=== PATIENT | male | born 1955 | race Caucasian/White ===

== ENCOUNTER 2018-09-07 13:26 | Inpatient (IN) | payer MEDICAID, OTHER ==
[~2018-09-07] VITALS: Ht 177.8 cm; Wt 137.0 kg
[2018-09-07] MEDS: LISINOPRIL 10 MG TAB PO SCH ×2 (09:00→20:10)
[2018-09-07] MEDS ORDERED: NS 1,000 ML IV ONE ×2 (14:30→21:30)
[2018-09-07 14:42] LABS: BASO % 0.2 % (0.0-1.0); EOS % 0.1 % (0.0-3.0); HEMOGLOBIN 14.7 g/dl (13.5-17.5); LYMPH # 0.9 10^3/uL (1.5-4.5); LYMPH % 4.9 % (24.0-44.0); MEAN CORPUSCULAR HEMOGLOBIN 31.3 pg (27.0-33.0); MEAN CORPUSCULAR HGB CONC 34.2 g/dl (32.0-36.5); MEAN CORPUSCULAR VOLUME 91.7 fl (80.0-96.0); MONO # 0.9 10^3/uL (0.0-0.8); MONO % 4.6 % (0.0-5.0); NEUTROPHILS # 16.8 10^3/uL (1.8-7.7); NEUTROPHILS % 89.7 % (36.0-66.0); PLATELET COUNT, AUTOMATED 311 10^3/uL (150-450); RED BLOOD COUNT 4.69 10^6/uL (4.30-6.10); WHITE BLOOD COUNT 18.7 10^3/uL (4.0-10.0)
[2018-09-07 14:52] LABS: INR 1.22; PARTIAL THROMBOPLASTIN TIME 30.5 SECONDS (25.4-37.6); PROTHROMBIN TIME 15.6 SECONDS (12.1-14.4)
[2018-09-07 15:03] LABS: BLOOD UREA NITROGEN 13 MG/DL (7-18); CALCIUM LEVEL 8.1 MG/DL (8.8-10.2); CARBON DIOXIDE LEVEL 27 MEQ/L (21-32); CHLORIDE LEVEL 96 MEQ/L (98-107); CREATININE FOR GFR 0.99 MG/DL (0.70-1.30); GLOMERULAR FILTRATION RATE > 60.0 (>49); GLUCOSE, FASTING 335 MG/DL (70-100); SODIUM LEVEL 132 MEQ/L (136-145)
[2018-09-07 15:09] LABS: ERYTHROCYTE SEDIMENTATION RATE 78 mm/hr (0-20)
[2018-09-07] MEDS ORDERED: VANCOMYCIN HCL 1,000 MG, VIAL MATE ADAPTER 1 EACH in D5W 250 ML IV ONE (15:30)
[2018-09-07] MEDS ORDERED: PIPERACILLIN/TAZOBACTAM SOD 3.375 GM in D5W MINI-BAG PLUS 50 ML IV ONE (15:30)
[2018-09-07] MEDS ORDERED: PIPERACILLIN/TAZOBACTAM SOD 3.375 GM in D5W MINI-BAG PLUS 50 ML IV SCH (18:00)
[2018-09-07] MEDS ORDERED: GLUCOSE 4 GM CHEW TABLET PO PRN (18:00)
[2018-09-07] MEDS ORDERED: GLUCAGON FOR INJ 1 MG VIAL (J1610) SC PRN (18:00)
[2018-09-07] MEDS ORDERED: DEXTROSE 50% 50 ML SYRINGE IV PRN (18:00)
[2018-09-07] MEDS ORDERED: hydrALAZINE INJ 20 MG/ML VIAL IV STA (18:05)
--- NOTE | 2018-09-07 18:49 | HPE ---
DATE OF ADMISSION: 09/07/2018 CHIEF COMPLAINT: Right foot wound. HISTORY OF PRESENT ILLNESS: This is a 63-year-old gentleman with no known medical history, who has not had primary care for the last 40 years, who presents with chief complaint of right foot wound that has been worsening for the last several days. Patient reports that on Saturday, after he took off his sock, he noticed red blood spots on his sock. He then noticed a wound on his right lateral foot. There was associated erythema that has proven stable since Saturday. He went to Urgent Care initially and was told to come here to the emergency room. He denies every being diagnosed with diabetes. He does report that he has had polyuria for the last year, but otherwise denies any other symptoms. He denies any insect bite or trauma to his right foot. No known fevers. REVIEW OF SYSTEMS: Negative for 14 out of 14 systems except as noted above. EMERGENCY ROOM (ER) COURSE: Patient in the emergency room was given a dose of vancomycin and Zosyn for concerns of right diabetic foot ulcer. He had an x-ray done in the ER that did not show evidence of osteomyelitis. He was also given a 1 liter fluid bolus. He is being admitted for diabetic foot ulcer evaluation. PAST MEDICAL HISTORY: None known. PAST SURGICAL HISTORY: None. HOME MEDICATIONS: None. ALLERGIES: No known drug allergies. SOCIAL HISTORY: Patient occasionally has a beer. No history of smoking. 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 No history of recreational drug use. He is currently single and never been . Has no children. FAMILY HISTORY: He does have an uncle and several cousins who had diabetes. PHYSICAL EXAMINATION: On exam, initially when he came in, he was afebrile to 98.4, blood pressure 197/84, pulse of 109, respirations at 16, saturating 95% on room air. GENERAL: He is in no acute distress. He is an overweight, elderly gentleman. HEENT EXAM: Oropharynx clear. CARDIOVASCULAR: Slightly tachycardic. No murmurs, rubs, gallops. LUNGS: Clear to auscultation bilaterally. ABDOMEN: Obese, nontender, nondistended. EXTREMITIES: No clubbing, cyanosis or edema. SKIN: Patient's right foot has an approximately 3 inch diameter ulcer on the lateral border. There is surrounding erythema extending throughout the dorsum of the foot. Area was demarcated with a pen. NEUROLOGICAL: Patient is alert and oriented times three. Follows simple commands. No focal neurologic deficits. PSYCHOLOGICAL: Mood stable. LABORATORY DATA: Reveal creatinine of 0.9, sodium of 132, potassium of 4, glucose 335. A1c 11. CRP is 13. Erythrocyte sedimentation rate is 78. Foot x-ray shows no radiographic evidence of osteomyelitis. ASSESSMENT AND PLAN: This is a 63-year-old gentleman with no known past medical history with poor primary care followup who presents with chief complaint of several day history of right lateral foot wound, found to have a new diagnosis of diabetes. PROBLEMS: 1. Sepsis. Patient does meet systemic inflammatory response syndrome (SIRS) criteria on admission with a white count 18 and tachycardia up to 109. He did already receive fluids in the ER and vancomycin and Zosyn. The source of the sepsis is likely the right foot infection. Blood cultures are pending. 2. Right diabetic foot wound. At this time, I will continue broad spectrum antibiotics with vancomycin and Zosyn for broad spectrum coverage, especially given the patient is presenting with sepsis. I have called Dr. Suarez, who will see the patient tomorrow. A consult has been placed. The patient's erythrocyte sedimentation rate and CRP were elevated, but the x-ray did not show any evidence of osteomyelitis, but I have ordered an MRI to further evaluate this. I have also placed a wound care consult. 3. New diagnosis of diabetes. Patient comes in with an A1c of 11 and glucose up to 335. An A1c is unlikely that we can control his diabetes with just oral agents and diet modification. Therefore, I have initiated him on the initial dosing of Levemir 0.2 units/kilo, up to 10 units daily. Therefore, I have started him on 10 units at bedtime. Patient should have diabetic and insulin teaching during this hospitalization. I have placed a nursing order for this. He will need regular primary care followup as well as diabetic retinopathy screens, which I advised the patient. He will need diabetic diet teaching and I have placed a dietary consult to review this with the patient. 4. Hypertension. Patient also has untreated hypertension with blood pressures up to 190s/80s. Given he also has this new diagnosis of diabetes, I think he would benefit from an angiotensin-converting enzyme (SHERRY) inhibitor. I have given him a one-time dose of hydralazine just to help improve his pressors more acutely, but I have also started him on lisinopril 10 mg daily, and he should have an electrolyte check with a potassium in about one week, given the new initiation of an SHERRY inhibitor. 5. Health care maintenance. I have also just went ahead and checked a lipid profile to see if patient would benefit from a statin prior to discharge. 6. Deep venous thrombosis (DVT) prophylaxis. I have started the patient on Lovenox.
[2018-09-07] MEDS: HumaLOG INSULIN (NovoLOG) PER UNIT SC SCH (20:32)
[2018-09-07] MEDS: ACETAMINOPHEN TAB 650MG DOSE (2X325MG) PO PRN (20:56)
[2018-09-07] MEDS ORDERED: VANCOMYCIN HCL 1,000 MG, VIAL MATE ADAPTER 1 EACH in D5W 250 ML IV SCH (21:00)
[2018-09-07] MEDS ORDERED: LEVEMIR (INSULIN DETEMIR) 1 UNITS/0.01ML SC SCH (21:00)
[2018-09-07] MEDS: LABETALOL HCL 100 MG/20 ML VIAL IV SCH (21:35)
[2018-09-07] MEDS ORDERED: PIPERACILLIN/TAZOBACTAM SOD 4.5 GM in D5W MINI-BAG PLUS 50 ML IV SCH (22:00)
[2018-09-07 22:30] VITALS: BP 165/79
[2018-09-07] MEDS: PIPERACILLIN/TAZOBACTAM SOD 4.5 GM in D5W MINI-BAG PLUS 50 ML IV SCH (23:00)
[2018-09-07] MEDS: VANCOMYCIN HCL 1,000 MG, VIAL MATE ADAPTER 1 EACH in D5W 250 ML IV SCH (23:50)
--- NOTE | 2018-09-08 01:37 | PHACANCOPD ---
PHARMACY VANCOMYCIN DOSING Pt Demographics Demographics Patient Age:63 , Weight:137.100 , Gender: male Adjusted Body Weight Date: 09/08/18, Adjusted Body Weight: [98.6] Kg Vancomycin Vancomycin indication: DIABETIC FOOT INFECTION Vancomycin Target Ranges: 10-20 mcg/ml Vancomycin Load Y/N: Yes Load Dose Date Time Vancomycin Load Dose: 2GM Date: 09/07 Time: 2099 Vancomycin Dose Date: 09/08/18. Current Vancomycin Dose: [1 GM Q8H] Intermittent Dosing?: No Labs Labs Laboratory Tests 09/07/18 14:32 Red Blood Count 4.69, Mean Corpuscular Volume 91.7, Mean Corpuscular Hemoglobin 31.3, Mean Corpuscular Hemoglobin Concent 34.2, Red Cell Distribution Width 11.8, Neutrophils (%) (Auto) 89.7 H, Lymphocytes (%) (Auto) 4.9 L, Monocytes (%) (Auto) 4.6, Eosinophils (%) (Auto) 0.1, Basophils (%) (Auto) 0.2, Neutrophils # (Auto) 16.8 H, Lymphocytes # (Auto) 0.9 L, Monocytes # (Auto) 0.9 H, Eosinophils # (Auto) 0.0, Basophils # (Auto) 0.0, Calcium Level 8.1 L Micro Microbiology 09/07/18 Blood Culture, Received Pending 09/07/18 Blood Culture, Received Pending 09/07/18 Gram Stain - Final, Resulted 09/07/18 Wound Culture, Resulted Pending Creatinine Clearance Date:09/08/18. Creatinine Clearance: [109].CALCULATED Pending Labs Vancomycin trough due Assessment and Plan Maintaining Current Dose?: Yes Reason for dose change: No Dose Change Pharmacist Note Pharmacist Note Date: 09/08/18. Pharmacist note:63YOM 137kg(98.6 kg ABW) SCR 0.99,BIMO=929.3,NKDA.Admitted w/Rt.Diabetic foot infection. Receiving Pip/Tazo 4.5 grams IV Q6H and Vancomycin per Pharmacy consult. Vancomycin 1 gram in ED 09/07@17 and 2200 as load, then will continue with regimen of 1 gram IV [id number]. First trough is scheduled for -prior to the 4th dose-will continue to follow patient and will adjust Vancomycin as needed. [facility] Sep 08, 2018 01:37
[2018-09-08 04:00] VITALS: BP 196/80
[2018-09-08] MEDS: PIPERACILLIN/TAZOBACTAM SOD 4.5 GM in D5W MINI-BAG PLUS 50 ML IV SCH ×4 (04:15→23:45)
[2018-09-08] MEDS: LABETALOL HCL 100 MG/20 ML VIAL IV SCH ×4 (04:15→21:59)
[2018-09-08 05:05] VITALS: BP 184/76
[2018-09-08 05:09] LABS: HEMATOCRIT 38.2 % (42.0-52.0); MEAN CORPUSCULAR HEMOGLOBIN 31.1 pg (27.0-33.0); MEAN CORPUSCULAR VOLUME 91.4 fl (80.0-96.0); PLATELET COUNT, AUTOMATED 284 10^3/uL (150-450); RED BLOOD COUNT 4.18 10^6/uL (4.30-6.10); WHITE BLOOD COUNT 16.4 10^3/uL (4.0-10.0)
[2018-09-08 05:27] LABS: BLOOD UREA NITROGEN 9 MG/DL (7-18); CALCIUM LEVEL 7.7 MG/DL (8.8-10.2); CARBON DIOXIDE LEVEL 27 MEQ/L (21-32); CHLORIDE LEVEL 100 MEQ/L (98-107); CHOLESTEROL LEVEL 114 MG/DL (<200); CHOLESTEROL RISK RATIO 3.081 (<5); CREATININE FOR GFR 0.82 MG/DL (0.70-1.30); GLOMERULAR FILTRATION RATE > 60.0 (>49); GLUCOSE, FASTING 252 MG/DL (70-100); HDL CHOLESTEROL 37 MG/DL (>40); LDL CHOLESTEROL 65 MG/DL (<100); NON-HDL-C 77 MG/DL; POTASSIUM SERUM 3.7 MEQ/L (3.5-5.1); SODIUM LEVEL 133 MEQ/L (136-145); TRIGLYCERIDES LEVEL 58 MG/DL (<150)
[2018-09-08] MEDS: VANCOMYCIN HCL 1,000 MG, VIAL MATE ADAPTER 1 EACH in D5W 250 ML IV SCH ×3 (05:40→21:58)
--- NOTE | 2018-09-08 06:37 | REP ---
RIGHT FOOT SERIES: Four views of the right foot are performed. There is a soft tissue ulcer laterally in the midfoot. I see no acute fracture or dislocation. There are no radiographic signs of osteomyelitis with no osseous destruction or periosteal reaction identified. Large calcaneal spurs are seen. Diffuse vascular calcifications are seen. There is dorsal tarsal spurring. IMPRESSION: Lateral soft tissue ulcer in the midfoot with no radiographic evidence of osteomyelitis. No acute fracture or dislocation. Electronically Signed by Jeffery Mcnally MD 09/08/2018 09:16 A
[2018-09-08 08:00] VITALS: BP 150/80
[2018-09-08] MEDS: ENOXAPARIN 40 MG/0.4 ML SYRINGE (J1650) SC SCH (08:30)
[2018-09-08] MEDS: amLODIPine 5 MG TAB PO SCH (08:31)
[2018-09-08] MEDS: HumaLOG INSULIN (NovoLOG) PER UNIT SC SCH ×4 (08:31→20:59)
[2018-09-08] MEDS: LEVEMIR (INSULIN DETEMIR) 1 UNITS/0.01ML SC SCH ×2 (08:38→21:58)
[2018-09-08] MEDS: ACETAMINOPHEN TAB 650MG DOSE (2X325MG) PO PRN ×3 (10:01→20:30)
[2018-09-08 12:00] VITALS: BP 168/78
[2018-09-08] MEDS ORDERED: PROHANCE 279.3MG/ML 5ML VIAL (A9576) As Ordered ONE (14:11)
[2018-09-08] MEDS ORDERED: PROHANCE 279.3MG/ML 15ML VIAL (A9576) As Ordered ONE (14:11)
--- NOTE | 2018-09-08 14:30 | CR ---
DATE OF CONSULTATION: 09/08/2018 REASON FOR CONSULTATION: Right foot wound. Deo Early is a pleasant 63-year-old male who presented to the hospital with worsening foot pain and redness. He was recently diagnosed with diabetes since he has been admitted to the hospital. He has not followed up with a doctor in 40 years. He states that the wound he has noticed for approximately one week and has noted more redness over the last week. PAST MEDICAL HISTORY: Now significant for diabetes. SURGICAL HISTORY: None. HOME MEDICATIONS: None. ALLERGIES: None. SOCIAL HISTORY: He denies smoking. Labs are reviewed. White blood cell count on admission was 18.7, today is 16.4, ESR 78, CRP is 12.8. Hemoglobin A1c is 11. X-ray images show no obvious signs of osteomyelitis. An MRI has been ordered and is pending. PHYSICAL EXAMINATION: Lower extremity examination: There is significant erythema and edema to the right foot with a large ulceration to the lateral foot. There is some eschar with some fluctuance underneath. Pedal pulses are nonpalpable secondary to edema, but capillary refill is normal. ASSESSMENT: Newly diagnosed diabetes with right foot ulceration and cellulitis. PLAN: Due to fluctuance, patient will be brought to the operating room for incision and drainage, possible culture depending on wound findings. Ultimately, the patient will need follow-up with Dr. England. Unfortunately the patient has Medicaid which does not pay for outpatient podiatry services. He is to be nothing by mouth at midnight. Continue with current empiric antibiotics.
--- NOTE | 2018-09-08 15:04 | IPNPDOC ---
Subjective Date Seen The patient was seen on 09/08/18. Subjective Chief Complaint/HPI Patient seen and examined at bedside. States that his right foot feels better this morning. Denies any acute overnight events. Objective Physical Examination General Exam: Positive: Alert, Cooperative, No Acute Distress ENT Exam: Positive: Atraumatic, Mucous membr. moist/pink Neck Exam: Negative: JVD Chest Exam: Positive: Clear to auscultation, Normal air movement Heart Exam: Positive: Rate Normal, Normal S2 Abdomen Exam: Positive: Soft; Negative: Tenderness Extremity Exam: Positive: Other (right forefoot noted to be wrapped in surgical dressing. Surrounding area of erythema appears to be improved from previously demarcated margins.) Psych Exam: Positive: Oriented x 3 Assessment /Plan Plan/VTE VTE Prophylaxis Ordered?: Yes Plan Sepsis 2/2 Right Diabetic Foot Infection Blood cultures unrevealing thus far WBC improved, CRP downward trending, fever has also subsided this morning Cont Darcy Enriquez for now MRI Foot pending Podiatry consulted--patient tentatively scheduled for I&D in the AM, NPO after midnight New diagnosis of diabetes HgbA1c noted to be 11% We are currently up-titrating the patient's Insulin dosing Diabetic teaching ordered We will cont to monitor blood glucose levels Newly diagnosed Hypertension Cont Lisinopril and Norvasc as ordered Labetalol IV prn for parameters Deep venous thrombosis (DVT) prophylaxis Lovenox SC VS, I&O, 24H, Fishbone Vital Signs/I&O Vital Signs Date Time Temp Pulse Resp B/P (MAP) Pulse Ox O2 Delivery O2 Flow Rate FiO2 09/08/18 12:00 97.5 96 20 168/78 (108) 95 09/07/18 22:01 Room Air I&O- Last 24 Hours up to 6 AM 09/08/18 06:00 Intake Total 2090 ml Output Total 1050 ml Balance 1040 ml Laboratory Data 24H LABS Laboratory Tests 2 09/07/18 20:26: Bedside Glucose (Misc Panel) 286H 09/08/18 04:49: Nucleated Red Blood Cells % (auto) 0.0, Anion Gap 6L, Glomerular Filtration Rate > 60.0, Calcium Level 7.7L, C-Reactive Protein, Quantitative 12.80H, Triglycerides Level 58, LDL Cholesterol 65, Total Cholesterol 114, Non-HDL Cholesterol (LDL + VLDL) 77, Total HDL Cholesterol 37L, Cholesterol/HDL Ratio 3.081 09/08/18 11:11: Bedside Glucose (Misc Panel) 206H CBC/BMP Laboratory Tests 09/08/18 04:49 Red Blood Count 4.18 L, Mean Corpuscular Volume 91.4, Mean Corpuscular Hemoglobi n 31.1, Mean Corpuscular Hemoglobin Concent 34.0, Red Cell Distribution Width 11.7 Microbiology Microbiology 09/07/18 Blood Culture - Preliminary, Resulted No growth after 24 hours . All specim... 09/07/18 Blood Culture - Preliminary, Resulted No growth after 24 hours . All specim... 09/07/18 Gram Stain - Final, Resulted 09/07/18 Wound Culture, Resulted Pending JONES GREY MD Sep 08, 2018 15:04
[2018-09-08 16:00] VITALS: BP 152/84
--- NOTE | 2018-09-08 16:42 | REP ---
MRI right foot without contrast: History: Rule out osteomyelitis. Comparison radiographs are from the previous day. Technique: Axial coronal and sagittal imaging planes utilized. T1 and T2-weighted scans were obtained with and without fat saturation. The patient declined intravenous gadolinium. MRI findings: Cortical and medullary bone signal intensity are normal in the metatarsals, tarsals and phalanges on T1 and T2-weighted scans. There is soft tissue irregularity and edema about the lateral aspect of the forefoot near the ulcer. There is no evidence of abnormal soft tissue fluid collection to suggest abscess. There is no MR evidence of osteomyelitis. Impression: Noncontrast study shows the lateral forefoot soft tissue irregularity and edema. No abscess or evidence of osteomyelitis seen. Electronically Signed by Greyson Anaya MD 09/09/2018 11:27 A
[2018-09-08 20:00] VITALS: BP 147/70
[2018-09-09] VITALS (16 sets, daily range): BP systolic 135–205; BP diastolic 64–90; O2SAT 87–93
[2018-09-09] MEDS: LABETALOL HCL 100 MG/20 ML VIAL IV SCH ×4 (04:03→21:32)
[2018-09-09] MEDS: PIPERACILLIN/TAZOBACTAM SOD 4.5 GM in D5W MINI-BAG PLUS 50 ML IV SCH ×4 (04:31→23:44)
[2018-09-09 05:57] LABS: HEMOGLOBIN 12.9 g/dl (13.5-17.5); MEAN CORPUSCULAR HEMOGLOBIN 31.2 pg (27.0-33.0); MEAN CORPUSCULAR HGB CONC 33.1 g/dl (32.0-36.5); MEAN CORPUSCULAR VOLUME 94.2 fl (80.0-96.0); PLATELET COUNT, AUTOMATED 278 10^3/uL (150-450); RED BLOOD COUNT 4.14 10^6/uL (4.30-6.10); WHITE BLOOD COUNT 18.7 10^3/uL (4.0-10.0)
[2018-09-09] MEDS: VANCOMYCIN HCL 1,000 MG, VIAL MATE ADAPTER 1 EACH in D5W 250 ML IV SCH ×3 (06:01→21:36)
[2018-09-09 06:20] LABS: ALBUMIN 2.2 GM/DL (3.2-5.2); ALT/SGPT 37 U/L (12-78); BILIRUBIN,TOTAL 0.8 MG/DL (0.2-1.0); BLOOD UREA NITROGEN 12 MG/DL (7-18); CALCIUM LEVEL 7.9 MG/DL (8.8-10.2); CARBON DIOXIDE LEVEL 26 MEQ/L (21-32); CHLORIDE LEVEL 97 MEQ/L (98-107); CREATININE FOR GFR 0.93 MG/DL (0.70-1.30); GLOMERULAR FILTRATION RATE > 60.0 (>49); GLUCOSE, FASTING 251 MG/DL (70-100); MAGNESIUM LEVEL 2.2 MG/DL (1.8-2.4); POTASSIUM SERUM 3.8 MEQ/L (3.5-5.1); SODIUM LEVEL 133 MEQ/L (136-145); TOTAL PROTEIN 7.2 GM/DL (6.4-8.2)
[2018-09-09] MEDS: amLODIPine 5 MG TAB PO SCH (08:22)
[2018-09-09] MEDS: HumaLOG INSULIN (NovoLOG) PER UNIT SC SCH ×4 (08:23→21:00)
[2018-09-09] MEDS: LISINOPRIL 10 MG TAB PO SCH (09:00)
[2018-09-09] MEDS: LEVEMIR (INSULIN DETEMIR) 1 UNITS/0.01ML SC SCH ×2 (09:00→21:35)
[2018-09-09] MEDS ORDERED: fentaNYL 100 MCG/2 ML INJECTION (J3010) As Ordered ONE (10:25)
[2018-09-09] MEDS ORDERED: PROPOFOL 200 MG/20 ML VIAL As Ordered ONE (10:25)
[2018-09-09] MEDS ORDERED: ONDANSETRON 4MG/2ML VIAL (J2405) As Ordered ONE (10:25)
[2018-09-09] MEDS ORDERED: LIDOCAINE 2% INJ 100 MG/5 ML SDV (FOR ANES.) As Ordered ONE (10:25)
[2018-09-09] MEDS ORDERED: MIDAZOLAM INJ 2 MG/2 ML VIAL (J2250) As Ordered ONE (10:26)
[2018-09-09] MEDS ORDERED: LIDOCAINE 1% MDV 20ML VIAL As Ordered ONE (10:47)
[2018-09-09] MEDS ORDERED: BUPIVACAINE HCL 0.5% 30 ML VIAL As Ordered ONE (10:47)
[2018-09-09] MEDS ORDERED: ZOSYN 3.375 GM VIAL (J2543) As Ordered ONE (11:44)
[2018-09-09] MEDS ORDERED: MORPHINE 2 MG/ML 1ML SYRINGE (J2270) IV PRN (12:30)
[2018-09-09] MEDS ORDERED: LR 1,000 ML IV SCH (13:00)
[2018-09-09] MEDS ORDERED: PERCOCET 5MG/325MG TAB PO PRN (13:00)
[2018-09-09] MEDS: PERCOCET 5MG/325MG TAB PO PRN (14:15)
--- NOTE | 2018-09-09 16:35 | IPNPDOC ---
Subjective Date Seen The patient was seen on 09/09/18. Subjective Chief Complaint/HPI Patient seen and examined at the bedside. He is scheduled for incision and drainage of the foot today with podiatry. Otherwise, no acute overnight events noted. Objective Physical Examination General Exam: Positive: Alert, Cooperative, No Acute Distress ENT Exam: Positive: Atraumatic, Mucous membr. moist/pink Neck Exam: Negative: JVD Chest Exam: Positive: Clear to auscultation, Normal air movement Heart Exam: Positive: Rate Normal, Normal S2 Abdomen Exam: Positive: Soft; Negative: Tenderness Extremity Exam: Positive: Other (right forefoot noted to be wrapped in surgical dressing. Surrounding area of erythema appears to be improved from previously demarcated margins.) Psych Exam: Positive: Oriented x 3 Assessment /Plan Plan/VTE VTE Prophylaxis Ordered?: Yes Plan Sepsis 2/2 Right Diabetic Foot Infection Blood cultures unrevealing thus far WBC improved, CRP downward trending, fever has also subsided this morning Cont Darcy Enriquez for now-->Will follow up with wound cultures and narrow abx coverage accordingly MRI Foot with no evidence of osteomyelitis Podiatry consulted--patient tentatively scheduled for I&D today New diagnosis of diabetes HgbA1c noted to be 11% We are currently up-titrating the patient's Insulin dosing Diabetic teaching ordered We will cont to monitor blood glucose levels Newly diagnosed Hypertension Cont Lisinopril and Norvasc as ordered Labetalol IV prn for parameters Deep venous thrombosis (DVT) prophylaxis Lovenox SC VS, I&O, 24H, Fishbone Vital Signs/I&O Vital Signs Date Time Temp Pulse Resp B/P (MAP) Pulse Ox O2 Delivery O2 Flow Rate FiO2 09/09/18 16:00 80 137/70 09/09/18 15:05 97.2 20 80 2.0 09/07/18 22:01 Room Air I&O- Last 24 Hours up to 6 AM 09/09/18 06:00 Intake Total 2450 ml Output Total 50 ml Balance 2400 ml Laboratory Data 24H LABS Laboratory Tests 2 09/08/18 17:16: Bedside Glucose (Misc Panel) 234H 09/08/18 20:32: Bedside Glucose (Misc Panel) 222H 09/08/18 21:11: Vancomycin Level Trough 11.3 09/09/18 05:12: Nucleated Red Blood Cells % (auto) 0.0, Anion Gap 10, Glomerular Filtration Rate > 60.0, Blood Urea Nitrogen 12, Creatinine 0.93, Sodium Level 133L, Potassium Level 3.8, Chloride Level 97L, Carbon Dioxide Level 26, Calcium Level 7.9L, Aspartate Amino Transf (AST/SGOT) 27, Alanine Aminotransferase (ALT/SGPT) 37, Alkaline Phosphatase 100, Total Bilirubin 0.8, Total Protein 7.2, Albumin 2.2L, Magnesium Level 2.2, C-Reactive Protein, Quantitative 12.40H, Albumin/Globulin Ratio 0.44L 09/09/18 09:56: Bedside Glucose (Misc Panel) 238H 09/09/18 12:23: Bedside Glucose (Misc Panel) 204H 09/09/18 13:20: Bedside Glucose (Misc Panel) 185H CBC/BMP Laboratory Tests 09/09/18 05:12 Red Blood Count 4.14 L, Mean Corpuscular Volume 94.2, Mean Corpuscular Hemoglobin 31.2, Mean Corpuscular Hemoglobin Concent 33.1, Red Cell Distribution Width 11.7, Calcium Level 7.9 L, Aspartate Amino Transf (AST/SGOT) 27, Alanine Aminotransferase (ALT/SGPT) 37, Alkaline Phosphatase 100, Total Bilirubin 0.8, Total Protein 7.2, Albumin 2.2 L Microbiology Microbiology 09/07/18 Blood Culture - Preliminary, Resulted No Growth after 48 hours. All Specime... 09/07/18 Blood Culture - Preliminary, Resulted No Growth after 48 hours. All Specime... 09/09/18 Gram Stain - Final, Resulted 09/09/18 Wound Culture, Resulted Pending 09/09/18 Anaerobic Culture, Resulted Pending 09/07/18 Gram Stain - Final, Resulted 09/07/18 Wound Culture - Preliminary, Resulted Acinetobacter Baumannii Comple Staphylococcus Sp Coag Neg Corynebacterium Species Strep Agalactiae Group B JONES GREY MD Sep 09, 2018 16:34
[2018-09-10] VITALS (24 sets, daily range): BP systolic 139–173; BP diastolic 64–75; O2SAT 89–96
[2018-09-10] MEDS: LABETALOL HCL 100 MG/20 ML VIAL IV SCH ×4 (04:00→22:00)
[2018-09-10] MEDS: PIPERACILLIN/TAZOBACTAM SOD 4.5 GM in D5W MINI-BAG PLUS 50 ML IV SCH (05:13)
[2018-09-10 06:13] LABS: HEMATOCRIT 37.8 % (42.0-52.0); HEMOGLOBIN 12.4 g/dl (13.5-17.5); MEAN CORPUSCULAR HEMOGLOBIN 30.8 pg (27.0-33.0); MEAN CORPUSCULAR HGB CONC 32.8 g/dl (32.0-36.5); PLATELET COUNT, AUTOMATED 256 10^3/uL (150-450); RED BLOOD COUNT 4.02 10^6/uL (4.30-6.10); WHITE BLOOD COUNT 16.7 10^3/uL (4.0-10.0)
[2018-09-10] MEDS: VANCOMYCIN HCL 1,000 MG, VIAL MATE ADAPTER 1 EACH in D5W 250 ML IV SCH (06:39)
[2018-09-10 06:44] LABS: BILIRUBIN,TOTAL 0.6 MG/DL (0.2-1.0); C REACTIVE PROTEIN QUANTITATIV 12.5 MG/DL (0.00-0.30); CALCIUM LEVEL 7.8 MG/DL (8.8-10.2); CREATININE FOR GFR 2.37 MG/DL (0.70-1.30); GLOMERULAR FILTRATION RATE 29.9 (>49); MAGNESIUM LEVEL 2.2 MG/DL (1.8-2.4); TOTAL PROTEIN 7.1 GM/DL (6.4-8.2)
[2018-09-10] MEDS: HumaLOG INSULIN (NovoLOG) PER UNIT SC SCH ×4 (07:30→21:00)
[2018-09-10] MEDS: ENOXAPARIN 40 MG/0.4 ML SYRINGE (J1650) SC SCH (08:14)
[2018-09-10] MEDS: amLODIPine 10 MG TAB PO SCH (08:15)
[2018-09-10] MEDS: LEVEMIR (INSULIN DETEMIR) 1 UNITS/0.01ML SC SCH ×2 (08:15→21:00)
[2018-09-10] MEDS: LISINOPRIL 10 MG TAB PO SCH (08:15)
--- NOTE | 2018-09-10 08:36 | RO ---
DATE OF PROCEDURE: 09/09/2018 PREPROCEDURE DIAGNOSIS: Right foot ulceration and infection. POSTPROCEDURE DIAGNOSIS: Right foot ulceration and infection. PROCEDURE: Right foot incision and drainage and debridement. SURGEON: Macho Suarez DPM HELICOPTER PILOT: None. ANESTHESIA: Monitored anesthesia care with preoperative injection of 20 mL of 1:1 mixture of 1% lidocaine plain and 1/2% Marcaine plain. ESTIMATED BLOOD LOSS: 10 mL. SPECIMEN: Aerobic and anaerobic cultures and necrotic wound tissue right foot. COMPLICATIONS: None. CONDITION: Stable. Deo Early is a 63-year-old gentleman who was admitted to the hospital due to right foot infection. He had not been seen by a doctor in several decades and was diagnosed since being in the hospital with diabetes. He has had a wound on his right foot that he has noted at least one week, although it may have been there longer. He does not have normal sensation to his feet. He was brought to the hospital due to worsening nature of this infection. MRI was taken which did not show obvious signs of osteomyelitis or abscess according to the radiologist, however, although some fluid collection under the wound was noted by myself from the images. Decision was made to bring him to the operating room for incision and drainage and wound debridement. The patient side and site were identified and marked in the preoperative holding area. Consent was reviewed and obtained. All risks, complications and alternatives to the procedure were explained to the patient in detail and all questions were answered. DESCRIPTION OF PROCEDURE: The patient was brought to the operating room and placed on the operating room table in supine position. Monitored anesthesia care was delivered by the anesthesia team. This was converted to a general LMA anesthesia due to patient's oxygen saturation. Tourniquet was applied to the right ankle but was not inflated during the procedure. There is a large ulceration on the lateral foot near the fifth metatarsal phalangeal joint with eschar necrotic tissue with some fluctuance. Fifth toe was somewhat dusky at the start of the procedure. A 15 blade was used to cut into the tissue and purulent fluid came pouring out of the wound. The necrotic tissue was further debrided. Significant purulence continued. Tracking was noted along the dorsal aspect of the foot. An incision was made along this with tracking ending approximately at the second metatarsal. There was also a sinus apparently at the fourth interspace running toward the plantar aspect of the foot. Necrotic tissue was debrided using rongeur and blade. This was sent for pathology. 3000 liters of saline were irrigated through the wound using pulse lavage until no further significant purulent drainage was noted. The wound was packed with saline soaked gauze and dry dressings were applied. Patient will be brought to postanesthesia care unit with vital signs stable, neurovascular status intact. He will be re-admitted to the floor for continued treatment, antibiotics and wound care. Optimally patient should have infectious disease consultation as well as a wound care consultation with Dr. England.
[2018-09-10] MEDS ORDERED: LevoFLOXacin 500 MG TABLET PO ONE (09:00)
--- NOTE | 2018-09-10 09:44 | REP ---
Urinary tract sonography: History: Acute kidney insufficiency. Findings: Scanning at the level urinary bladder shows that it is empty at the time of scanning. Renal cortical echogenicity pattern is normal and renal contours are smooth bilaterally. There is no evidence of hydronephrosis on either side. No mass, cyst or calculus is seen. Left renal dimensions are 13.8 x 6.3 x 7.6 cm. Right kidney measures 13.9 x 9.2 x 7.1 cm. Impression: Unremarkable urinary tract sonography. No hydronephrosis seen. Electronically Signed by Greyson Anaya MD 09/10/2018 09:35 A
[2018-09-10 10:25] LABS: AMORPHOUS SEDIMENT SMALL (NEGATIVE); APPEARANCE, URINE CLOUDY (CLEAR); BACTERIA, URINE AUTO NEGATIVE (NEGATIVE); BILIRUBIN, URINE AUTO NEGATIVE (NEGATIVE); BLOOD, URINE BLOOD NEGATIVE (NEGATIVE); COLOR, URINE YELLOW (YELLOW); GLUCOSE, URINE (UA) AUTO 2+ mg/dL (NEGATIVE); KETONE, URINE AUTO NEGATIVE (NEGATIVE); LEUKOCYTE ESTERASE, URINE AUTO NEGATIVE (NEGATIVE); MUCUS, URINE SMALL (NEGATIVE); NITRITE, URINE AUTO NEGATIVE (NEGATIVE); PROTEIN, URINE AUTO 1+ mg/dL (NEGATIVE); RBC, URINE AUTO 1 /HPF (0-3); SPECIFIC GRAVITY URINE AUTO 1.016 (1.002-1.035); SQUAMOUS EPITHELIAL CELL UR AU 0 /HPF (0-6); UROBILINOGEN, URINE AUTO 0.2 mg/dL (0.0-2.0); WBC, URINE AUTO 2 /HPF (0-3)
[2018-09-10] MEDS: CEFTAROLINE FOSAMIL 300 MG in D5W 50 ML IV SCH ×2 (11:04→23:04)
[2018-09-10 11:07] LABS: SODIUM,RANDOM URINE 15 MEQ/L
[2018-09-10] MEDS: SLF 3 ML SYR IV SCH ×2 (12:57→21:24)
[2018-09-10] MEDS ORDERED: SLF 3 ML SYR IV PRN (13:00)
--- NOTE | 2018-09-10 14:17 | IPNPDOC ---
Subjective Date Seen The patient was seen on 09/10/18. Subjective Chief Complaint/HPI Patient seen and examined at the bedside. No acute complaints offered. The patient's serum creatinine noted to be elevated this morning. Patient denies any dysuria, suprapubic pain. Objective Physical Examination General Exam: Positive: Alert, Cooperative, No Acute Distress ENT Exam: Positive: Atraumatic, Mucous membr. moist/pink Neck Exam: Negative: JVD Chest Exam: Positive: Clear to auscultation, Normal air movement Heart Exam: Positive: Rate Normal, Normal S2 Abdomen Exam: Positive: Soft; Negative: Tenderness Extremity Exam: Positive: Other (right forefoot noted to be wrapped in surgical dressing. Surrounding area of erythema appears to be improved from previously demarcated margins.) Psych Exam: Positive: Oriented x 3 Assessment /Plan Plan/VTE VTE Prophylaxis Ordered?: Yes Plan Sepsis 2/2 Right Diabetic Foot Infection Blood cultures unrevealing thus far WBC improved, fever has also subsided MRI Foot with no evidence of osteomyelitis Podiatry consulted--s/p I&D on 09/09/18 Cont Empiric IV Abx coverage-->Will follow up with wound cultures and narrow abx coverage accordingly Acute Kidney Injury Likely 2/2 relative hypotension--Patient was noted to have a SBP of 205 early yesterday morning prior to procedure, and after receiving his medications for the AM, and Anesthesia (Propofol, Versed) for his procedure his BP was noted to be 87/51 at noon post-operatively. Renal U/S with no acute findings We will hold Nephrotoxins IVF Hydration ordered We will consider a Nephro consult if his Serum Cr continues to trend upwards New diagnosis of diabetes HgbA1c noted to be 11% We are currently up-titrating the patient's Insulin dosing Diabetic teaching ordered We will cont to monitor blood glucose levels Newly diagnosed Hypertension Cont medications as ordered Deep venous thrombosis (DVT) prophylaxis Lovenox SC VS, I&O, 24H, Fishbone Vital Signs/I&O Vital Signs Date Time Temp Pulse Resp B/P (MAP) Pulse Ox O2 Delivery O2 Flow Rate FiO2 09/10/18 13:00 93 Room Air 09/10/18 10:04 80 162/88 09/10/18 08:00 98.5 18 2.0 I&O- Last 24 Hours up to 6 AM 09/10/18 06:00 Intake Total 2180 ml Output Total 100 ml Balance 2080 ml Laboratory Data 24H LABS Laboratory Tests 2 09/09/18 17:03: Bedside Glucose (Misc Panel) 253H 09/09/18 20:09: Bedside Glucose (Misc Panel) 230H 09/10/18 05:42: Nucleated Red Blood Cells % (auto) 0.0, Anion Gap 10, Glomerular Filtration Rate 29.9L, Blood Urea Nitrogen 24#H, Creatinine 2.37#H, Sodium Level 131L, Potassium Level 4.0, Chloride Level 97L, Carbon Dioxide Level 24, Calcium Level 7.8L, Aspartate Amino Transf (AST/SGOT) 25, Alanine Aminotransferase (ALT/SGPT) 43, Alkaline Phosphatase 113, Total Bilirubin 0.6, Total Protein 7.1, Albumin 2.0L, Magnesium Level 2.2, C-Reactive Protein, Quantitative 12.50H, Albumin/Globulin Ratio 0.39L 09/10/18 10:09: Urine Appearance CLOUDYH, Urine Color YELLOW, Urine pH 5.0, Urine Specific [place] 1.016, Urine Protein 1+H, Urine Glucose (UA) 2+H, Urine Ketones NEGATIVE, Urine Urobilinogen 0.2, Urine Bilirubin NEGATIVE, Urine Leukocyte Esterase NEGATIVE, Urine Blood NEGATIVE, Urine Nitrite NEGATIVE, Urine WBC (Auto) 2, Urine RBC (Auto) 1, Urine Hyaline Casts (Auto) 0, Urine Bacteria (Auto) NEGATIVE, Urine Squamous Epithelial Cells 0, Urine Amorphous Sediment SMALLH, Urine Mucus (Auto) SMALL, Urine Sperm (Auto) , Urine Random Creatinine 136.0, Urine Random Sodium 15 09/10/18 11:50: Bedside Glucose (Misc Panel) 147H CBC/BMP Laboratory Tests 09/10/18 05:42 Red Blood Count 4.02 L, Mean Corpuscular Volume 94.0, Mean Corpuscular Hemoglobin 30.8, Mean Corpuscular Hemoglobin Concent 32.8, Red Cell Distribution Width 11.8, Calcium Level 7.8 L, Aspartate Amino Transf (AST/SGOT) 25, Alanine Aminotransferase (ALT/SGPT) 43, Alkaline Phosphatase 113, Total Bilirubin 0.6, Total Protein 7.1, Albumin 2.0 L Microbiology Microbiology 09/07/18 Blood Culture - Preliminary, Resulted No Growth after 48 hours. All Specime... 09/07/18 Blood Culture - Preliminary, Resulted No Growth after 48 hours. All Specime... 09/09/18 Gram Stain - Final, Resulted 09/09/18 Wound Culture - Preliminary, Resulted Strep Agalactiae Group B 09/09/18 Anaerobic Culture, Resulted Pending 09/07/18 Gram Stain - Final, Complete 09/07/18 Wound Culture - Final, Complete Acinetobacter Baumannii Comple Staphylococcus Sp Coag Neg Corynebacterium Species Strep Agalactiae Group B JONES GREY MD Sep 10, 2018 14:17
[2018-09-10] MEDS: NS 1,000 ML IV SCH (15:18)
--- NOTE | 2018-09-10 17:05 | HPE ---
DATE OF ADMISSION: 09/10/2018 Patient is seen and examined postoperatively. Denies overnight complaints. Notes a little bit of pain in his foot but has not required any pain medication for this. Vital signs are reviewed. He has remained afebrile. LABORATORY DATA: Reviewed. White blood cell count is 16.7. CRP is 12.5. Creatinine is 2.37. OR cultures and pathology are pending although preliminary shows group B streptococcus. LOWER EXTREMITY EXAMINATION: Wound is improved from last night. There is no further purulence. There is some necrotic tissue at the periphery of the wound. There is some dysvascular changes to the distal fourth and fifth toes. ASSESSMENT: Diabetic male with abscess, right foot, status post incision and drainage. PLAN: We will consult Dr. England for wound care recommendations. Continue current empiric antibiotics. Await operative wound cultures. Patient may require repeat incision and drainage if further purulence and necrotic tissue persist. However, he was fairly unstable in the operating room due to uncontrolled blood pressure and likely un-diagnosed sleep apnea. Patient should have evaluation for sleep apnea while in-house if possible. We will follow.
--- NOTE | 2018-09-10 21:16 | ECGEPIP ---
Stationary ECG Study [facility] Test Date: 2018-09-09 Pat Name: ANDREWS OHARA Department: Room: [place] [address] Gender: M [employer] Curator: JEOVANNY : 1955 Requested By: BERNA Dixon Order Number: [id number] Reading MD: Foregin Adame Measurements Intervals [place] Rate: 96 P: 38 SC: 185 QRS: -11 QRSD: 98 T: 79 QT: 372 QTc: 471 Interpretive Statements SINUS RHYTHM WITH SINUS ARRHYTHMIA POSSIBLE LEFT ATRIAL ENLARGEMENT NONSPECIFIC T-WAVE ABNORMALITY NO PRIOR Electronically Signed On 09-10-2018 21:15:38 EDT by Foreign Adame
[2018-09-10] MEDS: ACETAMINOPHEN TAB 650MG DOSE (2X325MG) PO PRN (21:24)
[2018-09-11] VITALS (14 sets, daily range): BP systolic 132–174; BP diastolic 70–99; O2SAT 89–98
[2018-09-11] MEDS: NS 1,000 ML IV SCH (01:00)
[2018-09-11] MEDS: LABETALOL HCL 100 MG/20 ML VIAL IV SCH (04:00)
[2018-09-11] MEDS: LevoFLOXacin 250 MG TABLET PO SCH (05:34)
[2018-09-11] MEDS: SLF 3 ML SYR IV SCH ×3 (05:35→21:24)
[2018-09-11 06:06] LABS: HEMATOCRIT 35.5 % (42.0-52.0); MEAN CORPUSCULAR HEMOGLOBIN 31.3 pg (27.0-33.0); MEAN CORPUSCULAR HGB CONC 33.8 g/dl (32.0-36.5); MEAN CORPUSCULAR VOLUME 92.7 fl (80.0-96.0); PLATELET COUNT, AUTOMATED 301 10^3/uL (150-450); RED BLOOD COUNT 3.83 10^6/uL (4.30-6.10); WHITE BLOOD COUNT 16.3 10^3/uL (4.0-10.0)
[2018-09-11 06:39] LABS: BILIRUBIN,TOTAL 0.6 MG/DL (0.2-1.0); C REACTIVE PROTEIN QUANTITATIV 11.3 MG/DL (0.00-0.30); CREATININE FOR GFR 3.67 MG/DL (0.70-1.30); MAGNESIUM LEVEL 2.3 MG/DL (1.8-2.4); POTASSIUM SERUM 3.9 MEQ/L (3.5-5.1); TOTAL PROTEIN 7.3 GM/DL (6.4-8.2)
[2018-09-11] MEDS: amLODIPine 10 MG TAB PO SCH (09:07)
[2018-09-11] MEDS: HumaLOG INSULIN (NovoLOG) PER UNIT SC SCH ×4 (09:07→21:00)
[2018-09-11] MEDS: HEPARIN SOD (PORCINE) 5000 UNITS/ML VIAL SQ SCH ×2 (09:08→21:00)
[2018-09-11] MEDS: LEVEMIR (INSULIN DETEMIR) 1 UNITS/0.01ML SC SCH ×2 (09:08→21:00)
[2018-09-11] MEDS: CEFTAROLINE FOSAMIL 300 MG in D5W 50 ML IV SCH ×2 (10:40→21:24)
[2018-09-12] VITALS (22 sets, daily range): BP systolic 140–187; BP diastolic 60–80; O2SAT 90–97
--- NOTE | 2018-09-12 00:59 | IPNPDOC ---
Subjective Date Seen The patient was seen on 09/11/18. Subjective Chief Complaint/HPI No complaints this morning. Objective Physical Examination General Exam: Positive: Alert, Cooperative, No Acute Distress ENT Exam: Positive: Atraumatic, Mucous membr. moist/pink Neck Exam: Negative: JVD Chest Exam: Positive: Clear to auscultation, Normal air movement Heart Exam: Positive: Rate Normal, Normal S2 Abdomen Exam: Positive: Soft; Negative: Tenderness Extremity Exam: Positive: Other (right forefoot noted to be wrapped in surgical dressing. Surrounding area of erythema appears to be improved from previously demarcated margins.) Psych Exam: Positive: Oriented x 3 Assessment /Plan Assessment Sepsis 2/2 Right Diabetic Foot Infection Blood cultures unrevealing thus far WBC improved, fever has also subsided MRI Foot with no evidence of osteomyelitis Podiatry consulted--s/p I&D on 09/09/18 Cont Empiric IV Abx coverage ceftaroline and levofloxacin. Cultures showing Strep agalactiae, coagulase negative staph, Culture from foot ulcer in ED also growing acinetobacter and corynebacterium Acute Kidney Injury Likely 2/2 relative hypotension--Patient was noted to have a SBP of 205 early yesterday morning prior to procedure, and after receiving his medications for the AM, and Anesthesia (Propofol, Versed) for his procedure his BP was noted to be 87/51 at noon post-operatively. Renal U/S with no acute findings We will hold Nephrotoxins IVF Hydration continued Nephrology consulted New diagnosis of diabetes HgbA1c noted to be 11% We are currently up-titrating the patient's Insulin dosing Diabetic teaching ordered We will cont to monitor blood glucose levels Newly diagnosed Hypertension Cont medications as ordered Deep venous thrombosis (DVT) prophylaxis Lovenox SC Plan/VTE VTE Prophylaxis Ordered?: Yes VS, I&O, 24H, Fishbone Vital Signs/I&O Vital Signs Date Time Temp Pulse Resp B/P (MAP) Pulse Ox O2 Delivery O2 Flow Rate FiO2 09/11/18 20:00 97.5 97 20 132/70 (90) 94 09/11/18 14:00 Room Air 09/11/18 04:00 2.0 I&O- Last 24 Hours up to 6 AM 09/12/18 06:00 Intake Total 1190 ml Output Total 2 ml Balance 1188 ml Laboratory Data 24H LABS Laboratory Tests 2 09/11/18 05:48: Nucleated Red Blood Cells % (auto) 0.0, Anion Gap 11, Glomerular Filtration Rate 18.0L, Blood Urea Nitrogen 40#H, Creatinine 3.67#H, Sodium Level 132L, Potassium Level 3.9, Chloride Level 99, Carbon Dioxide Level 22, Calcium Level 8.0L, Aspartate Amino Transf (AST/SGOT) 19, Alanine Aminotransferase (ALT/SGPT) 35, Alkaline Phosphatase 123H, Total Bilirubin 0.6, Total Protein 7.3, Albumin 2.0L, Magnesium Level 2.3, C-Reactive Protein, Quantitative 11.30H, Albumin/Globulin Ratio 0.38L 09/11/18 11:12: Bedside Glucose (Misc Panel) 196H 09/11/18 16:30: Bedside Glucose (Misc Panel) 184H 09/11/18 21:18: Bedside Glucose (Misc Panel) 183H CBC/BMP Laboratory Tests 09/11/18 05:48 Red Blood Count 3.83 L, Mean Corpuscular Volume 92.7, Mean Corpuscular Hemoglobin 31.3, Mean Corpuscular Hemoglobin Concent 33.8, Red Cell Distribution Width 11.9, Calcium Level 8.0 L, Aspartate Amino Transf (AST/SGOT) 19, Alanine Aminotransferase (ALT/SGPT) 35, Alkaline Phosphatase 123 H, Total Bilirubin 0.6, Total Protein 7.3, Albumin 2.0 L Microbiology Microbiology 09/07/18 Blood Culture - Preliminary, Resulted No Growth after 72 hours. All specime... 09/07/18 Blood Culture - Preliminary, Resulted No Growth after 72 hours. All specime... 09/09/18 Gram Stain - Final, Resulted 09/09/18 Wound Culture - Preliminary, Resulted Strep Agalactiae Group B Staphylococcus Sp Coag Neg 09/09/18 Anaerobic Culture - Final, Resulted 09/07/18 Gram Stain - Final, Complete 09/07/18 Wound Culture - Final, Complete Acinetobacter Baumannii Comple Staphylococcus Sp Coag Neg Corynebacterium Species Strep Agalactiae Group B MINE ROLLE MD Sep 12, 2018 00:59
[2018-09-12 05:02] LABS: HEMATOCRIT 36.5 % (42.0-52.0); HEMOGLOBIN 12.6 g/dl (13.5-17.5); MEAN CORPUSCULAR HEMOGLOBIN 31.3 pg (27.0-33.0); MEAN CORPUSCULAR HGB CONC 34.5 g/dl (32.0-36.5); MEAN CORPUSCULAR VOLUME 90.8 fl (80.0-96.0); PLATELET COUNT, AUTOMATED 318 10^3/uL (150-450); RED BLOOD COUNT 4.02 10^6/uL (4.30-6.10); WHITE BLOOD COUNT 14.9 10^3/uL (4.0-10.0)
[2018-09-12 05:35] LABS: ALBUMIN 1.9 GM/DL (3.2-5.2); BILIRUBIN,TOTAL 0.4 MG/DL (0.2-1.0); C REACTIVE PROTEIN QUANTITATIV 10.1 MG/DL (0.00-0.30); CALCIUM LEVEL 7.7 MG/DL (8.8-10.2); CREATININE FOR GFR 4.46 MG/DL (0.70-1.30); GLOMERULAR FILTRATION RATE 14.4 (>49); MAGNESIUM LEVEL 2.4 MG/DL (1.8-2.4); POTASSIUM SERUM 4.2 MEQ/L (3.5-5.1)
[2018-09-12] MEDS: SLF 3 ML SYR IV SCH ×3 (06:00→22:00)
[2018-09-12] MEDS: LevoFLOXacin 250 MG TABLET PO SCH (06:00)
[2018-09-12] MEDS: amLODIPine 10 MG TAB PO SCH (08:37)
[2018-09-12] MEDS: LEVEMIR (INSULIN DETEMIR) 1 UNITS/0.01ML SC SCH ×2 (08:38→20:09)
[2018-09-12] MEDS: HumaLOG INSULIN (NovoLOG) PER UNIT SC SCH ×4 (08:38→20:15)
[2018-09-12] MEDS: HEPARIN SOD (PORCINE) 5000 UNITS/ML VIAL SQ SCH ×2 (08:39→20:09)
[2018-09-12] MEDS: CEFTAROLINE FOSAMIL 300 MG in D5W 50 ML IV SCH (10:24)
[2018-09-12 11:35] LABS: BASO % 0.2 % (0.0-1.0); EOS # 0.1 10^3/uL (0.0-0.50); EOS % 0.9 % (0.0-3.0); LYMPH % 6.4 % (24.0-44.0); MONO # 1.1 10^3/uL (0.0-0.8); MONO % 7.4 % (0.0-5.0); NEUTROPHILS # 12.9 10^3/uL (1.8-7.7); NEUTROPHILS % 84.8 % (36.0-66.0)
--- NOTE | 2018-09-12 14:34 | REP ---
CT CHEST WITHOUT CONTRAST: HISTORY: Evaluate for pulmonary edema. No comparison CT study. FINDINGS: Digital dural mechanic views show blunting of the posterior pleural angles but are otherwise unremarkable. Axial CT images demonstrate the presence of a small right and a tiny left pleural effusion. There is some vascular calcification including coronary artery vascular calcification. No hilar or mediastinal mass or adenopathy is seen. There is a mild alveolar edema pattern in the lung [place] bilaterally. There are subpleural soft tissue pulmonary nodules in the right upper lobe anteriorly. The largest of these measures 7 mm in greatest diameter. There is a 3-4 mm pulmonary nodule in the left upper lobe. There are perifissural nodules along the major fissure on the left. No other significant pulmonary nodule is seen. No bony lesion is appreciated. IMPRESSION: Mild alveolar pulmonary edema pattern with small bilateral pleural effusions, right greater than left. CHF pattern versus volume overload. There are several small noncalcified pulmonary nodules in the right upper lobe and left upper lobe. Consider followup CT study in 6 months. Electronically Signed by Greyson Anaya MD 09/12/2018 02:42 P
[2018-09-12 15:08] LABS: AMORPHOUS SEDIMENT SMALL (NEGATIVE); BACTERIA, URINE AUTO 1+ (NEGATIVE); RBC, URINE AUTO 0 /HPF (0-3); SQUAMOUS EPITHELIAL CELL UR AU 0 /HPF (0-6); WBC, URINE AUTO 1 /HPF (0-3)
--- NOTE | 2018-09-12 15:33 | HPE ---
DATE OF ADMISSION: 09/12/2018 Patient seen and examined. Denies overnight complaints. Denies much pain in his foot. Otherwise, had some soreness when he was working with therapy. Vital signs are reviewed. He is afebrile. Labs are reviewed. White blood cell count trending downward, 14.9. Hemoglobin is 12.6. CRP is 10.1. Note creatinine is trending upward at 4.6. Cultures are reviewed. Operating room (OR) cultures grew group B streptococcus and coagulase-negative staphylococcus. Lower extremity examination: Some persistent erythema and edema surrounding foot. Wound is inspected. No significant necrotic tissue or purulence in the wound. There is some necrosis at the wound margins as well as some dysvascular skin at the distal portion of the incision. ASSESSMENT: Diabetic male with right foot abscess, status post incision and drainage. PLAN: Will start Vashe dressing change. Await telemedicine consult from Dr. England. Wound recommend infectious disease consultation. Patient will likely need second trip to OR for further debridement once further stabilized, likely next week. Will follow.
--- NOTE | 2018-09-12 16:52 | CR ---
DATE OF CONSULTATION: 09/12/2018 Asked to consult by hospitalist service for evaluation of intravenous (IV) antibiotic in a patient with diabetic foot ulcer and necrotizing wound of the right foot. HISTORY OF PRESENT ILLNESS: Mr. Early is a pleasant 63-year-old gentleman with morbid obesity, recent diagnosis diabetes, who had not been in care for 30 years. The patient presented with a 5-day history of the necrotic wound of the right foot. The patient had a low-grade fever on admission of 100.7. He had a white count 18.7. A wound culture was positive for Acinetobacter, staphylococcus, coagulase-negative Corynebacterium, and streptococcus group B. He was started on Zosyn and vancomycin from September 07 to and then switched to ceftaroline after he developed acute kidney injury. His creatinine increased from 0.9 to 4.46. That was in the setting of intraoperative hypotension and surgery. The patient today is afebrile. Denies any nausea, vomiting. He has soft stools but no diarrhea. No cough or shortness of breath. PAST MEDICAL HISTORY: 1. Obesity. 2. New diagnosis of diabetes. His HbA1c was 11. 3. The patient does report a history of polyuria. PAST SURGICAL HISTORY: Negative. ALLERGIES: No known drug allergies. SOCIAL HISTORY: He lives alone. He drinks socially a beer. He has no smoking history. He works for [employer]. 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 He has never been and does not have children. FAMILY HISTORY: His uncle and many cousins have diabetes. PHYSICAL EXAMINATION: He is a-healthy looking gentleman in no acute distress. Temperature is 97.6, pulse 97, respirations 18, blood pressure 140/60, oxygen saturation 95% on room air. HEART: Normal S1, S2. No murmurs, rubs, or gallops. LUNGS: Clear. No wheezes, rales, or rhonchi. ABDOMEN: Obese, soft, nontender. EXTREMITIES: Right forefoot has a very large open wound with necrotic tissue at the periphery. There is also necrotic tissue on the plantar aspect of the foot, measuring about 3 x 3 cm in a triangular shape. Tendons are exposed of the foot, at least three different tendons. There is good granulation tissue underneath. There is bloody discharge, surrounding cellulitis, and +1 ankle edema. Difficult to assess pulses. He has a small diabetic foot ulcer on the tip of the big toe, measuring less than a centimeter. LABORATORY DATA: White count is 14.9, hemoglobin 12.6, hematocrit 36.5, platelets 318, 84% neutrophils, 7% lymphocyte 7% eosinophils. Sodium 135, potassium 4.2, chloride 100, bicarbonate 22, BUN 53, creatinine 4.46 from a baseline of 9 and 0.82 five days ago, glucose 210, calcium 7.7, magnesium 2.4. AST 16, ALT 30, alkaline phosphatase 128, CRP 10.1, down from 12.8, albumin 1.9. Wound cultures were positive for Acinetobacter baumannii, staphylococcus coagulase negative, oxacillin sensitive, group B streptococcus, and Corynebacterium species. On September 07, two sets of blood cultures were no growth after 5 days. Repeat culture intraoperatively from September 09 had group B streptococcus and staphylococcus coagulase negatives with no anaerobic deisy. IMAGING STUDIES: Chest CT showed mild alveolar pulmonary edema with small bilateral pleural effusion, right greater than left, with congestive heart failure pattern. Renal ultrasounds were unremarkable. No hydronephrosis. Foot MRI done on September 08 was a noncontrasted study but shows soft tissue irregularity, edema, but no evidence of osteomyelitis or abscess. Foot x-ray shows soft tissue ulcer with no osteomyelitis and no fractures. IMPRESSION: This is a 63-year-old gentleman admitted with a diabetic foot ulcer with polymicrobial deisy and necrosis who has developed acute renal failure in the setting of surgery, hypotension, medication. The patient has been on vancomycin and Zosyn initially, which were switched to ceftaroline and levofloxacin on September 10. The patient is doing fairly well except for his acute kidney injury, which has worsened. He has a very large wound with persistent necrosis on the plantar aspect of the foot and exposed tendons. PLAN: 1. Consult with Dr. England regarding wound care. 2. The patient may need further debridement intraoperatively of the necrotic area on the plantar aspect of the foot. 3. Patient would benefit from intravenous (IV) Zosyn rather than ceftraoline. He does not need methicillin-resistant Staphylococcus aureus (MRSA) coverage. He does not need a quinolone. Zosyn would be a better drug for group B streptococcus, Acinetobacter, and anaerobic deisy. Discontinue IV ceftaroline and levofloxacin. Continue to monitor complete blood count (CBC), C-reactive protein (CRP), basic profile daily. Thank you for consultation
[2018-09-12] MEDS: PIPERACILLIN/TAZOBACTAM SOD 2.25 GM in D5W MINI-BAG PLUS 50 ML IV SCH (17:48)
[2018-09-12] MEDS: FUROSEMIDE 40 MG/4 ML VIAL (J1940) IV SCH (17:48)
[2018-09-12] MEDS: SANTYL OINT 30GM TOP SCH (18:25)
--- NOTE | 2018-09-12 18:52 | IPNPDOC ---
Subjective Date Seen The patient was seen on 09/12/18. Subjective Chief Complaint/HPI Does not have any complaints today. Making urine. Noted to be hypoxic during sleeping requiring 2 to 3 liters of oxygen. No SOB or hypoxia when awake. CT chest does show signs of fluid overload. Objective Physical Examination General Exam: Positive: Alert, Cooperative, No Acute Distress ENT Exam: Positive: Atraumatic, Mucous membr. moist/pink Neck Exam: Negative: JVD Chest Exam: Positive: Clear to auscultation, Normal air movement Heart Exam: Positive: Rate Normal, Normal S2 Abdomen Exam: Positive: Soft; Negative: Tenderness Extremity Exam: Positive: Other (right forefoot noted to be wrapped in surgical dressing. Surrounding area of erythema appears to be improved from previously demarcated margins.) Psych Exam: Positive: Oriented x 3 Assessment /Plan Assessment Sepsis 2/2 Right Diabetic Foot Infection Blood cultures unrevealing thus far WBC improved, fever has also subsided MRI Foot with no evidence of osteomyelitis Podiatry consulted--s/p I&D on 09/09/18 will need further visit to OR once more stable. Cultures growing multiple oranisms consulted ID On rush Acute Kidney Injury Likely 2/2 relative hypotension--Patient was noted to have a SBP of 205 early yesterday morning prior to procedure, and after receiving his medications for the AM, and Anesthesia (Propofol, Versed) for his procedure his BP was noted to be 87/51 at noon post-operatively and being on lisinopril. Renal U/S with no obstruction Now with mild fluid overload, started on lasix. electrolytes OK. No signs of ure claudine. New diagnosis of diabetes HgbA1c noted to be 11% We are currently up-titrating the patient's Insulin dosing Diabetic teaching ordered We will cont to monitor blood glucose levels Morbid obesity with possibly CHELO As seen with hypoxia during sleep will get nocturnal pulse oximetry. Newly diagnosed Hypertension Cont amlodipine. BP not well controlled will start metoprolol. Deep venous thrombosis (DVT) prophylaxis Lovenox SC Plan/VTE VTE Prophylaxis Ordered?: Yes VS, I&O, 24H, Fishbone Vital Signs/I&O Vital Signs Date Time Temp Pulse Resp B/P (MAP) Pulse Ox O2 Delivery O2 Flow Rate FiO2 09/12/18 18:00 95 Room Air 09/12/18 16:00 98.0 92 20 172/72 (105) 09/12/18 07:45 2.0 I&O- Last 24 Hours up to 6 AM 09/12/18 06:00 Intake Total 1980 ml Output Total 2 ml Balance 1978 ml Laboratory Data 24H LABS Laboratory Tests 2 09/11/18 21:18: Bedside Glucose (Misc Panel) 183H 09/12/18 04:53: Immature Granulocyte % (Auto) 0.3, Neutrophils (%) (Auto) 84.8H, Lymphocytes (%) (Auto) 6.4L, Monocytes (%) (Auto) 7.4H, Eosinophils (%) (Auto) 0.9, Basophils (%) (Auto) 0.2, Immature Granulocyte # (Auto) 0.1H, Neutrophils # (Auto) 12.9H, Lymphocytes # (Auto) 1.0L, Monocytes # (Auto) 1.1H, Eosinophils # (Auto) 0.1, Basophils # (Auto) 0.0, Nucleated Red Blood Cells % (auto) 0.0, Platelet Estimate , Anion Gap 13, Glomerular Filtration Rate 14.4L, Blood Urea Nitrogen 53H, Creatinine 4.46H, Sodium Level 135L, Potassium Level 4.2, Chloride Level 100, Carbon Dioxide Level 22, Calcium Level 7.7L, Aspartate Amino Transf (AST/SGOT) 16, Alanine Aminotransferase (ALT/SGPT) 30, Alkaline Phosphatase 128H, Total Bilirubin 0.4, Total Protein 7.0, Albumin 1.9L, Magnesium Level 2.4, C-Reactive Protein, Quantitative 10.10H, JU-[id number]-Type Natriuretic Peptide 3620H, Albumin/Globulin Ratio 0.37L 09/12/18 12:07: Bedside Glucose (Misc Panel) 166H 09/12/18 14:44: Urine WBC (Auto) 1, Urine RBC (Auto) 0, Urine Hyaline Casts (Auto) 0, Urine Bacteria (Auto) 1+H, Urine Squamous Epithelial Cells 0, Urine Amorphous Sediment SMALLH, Urine Sperm (Auto) 09/12/18 17:55: Bedside Glucose (Misc Panel) 171H CBC/BMP Laboratory Tests 09/12/18 04:53 Red Blood Count 4.02 L, Mean Corpuscular Volume 90.8, Mean Corpuscular Hemoglobin 31.3, Mean Corpuscular Hemoglobin Concent 34.5, Red Cell Distribution Width 11.6, Calcium Level 7.7 L, Aspartate Amino Transf (AST/SGOT) 16, Alanine Aminotransferase (ALT/SGPT) 30, Alkaline Phosphatase 128 H, Total Bilirubin 0.4, Total Protein 7.0, Albumin 1.9 L Microbiology Microbiology 09/07/18 Blood Culture - Final, Complete NO GROWTH AFTER 5 DAYS 09/07/18 Blood Culture - Final, Complete NO GROWTH AFTER 5 DAYS 09/09/18 Gram Stain - Final, Complete 09/09/18 Wound Culture - Final, Complete Strep Agalactiae Group B Staphylococcus Sp Coag Neg 09/09/18 Anaerobic Culture - Final, Complete 09/07/18 Gram Stain - Final, Complete 09/07/18 Wound Culture - Final, Complete Acinetobacter Baumannii Comple Staphylococcus Sp Coag Neg Corynebacterium Species Strep Agalactiae Group B MINE ROLLE MD Sep 12, 2018 18:52
[2018-09-12] MEDS: METOPROLOL TART 25 MG TABLET PO SCH (20:08)
[2018-09-12] MEDS ORDERED: CEFTAROLINE FOSAMIL 200 MG in D5W 50 ML IV SCH ×2 (22:00)
[2018-09-13] MEDS: FUROSEMIDE 40 MG/4 ML VIAL (J1940) IV SCH (01:44)
[2018-09-13 02:00] VITALS: BP 160/74
[2018-09-13] MEDS: PIPERACILLIN/TAZOBACTAM SOD 2.25 GM in D5W MINI-BAG PLUS 50 ML IV SCH ×2 (05:51→17:49)
[2018-09-13] MEDS: SLF 3 ML SYR IV SCH ×3 (05:51→21:35)
[2018-09-13 06:00] VITALS: BP 146/76
[2018-09-13 06:40] LABS: HEMATOCRIT 37.7 % (42.0-52.0); HEMOGLOBIN 13.1 g/dl (13.5-17.5); MEAN CORPUSCULAR HEMOGLOBIN 31.4 pg (27.0-33.0); MEAN CORPUSCULAR HGB CONC 34.7 g/dl (32.0-36.5); MEAN CORPUSCULAR VOLUME 90.4 fl (80.0-96.0); PLATELET COUNT, AUTOMATED 356 10^3/uL (150-450); RED BLOOD COUNT 4.17 10^6/uL (4.30-6.10); WHITE BLOOD COUNT 13.3 10^3/uL (4.0-10.0)
[2018-09-13 07:11] LABS: ALBUMIN 1.9 GM/DL (3.2-5.2); BILIRUBIN,TOTAL 0.4 MG/DL (0.2-1.0); C REACTIVE PROTEIN QUANTITATIV 9.66 MG/DL (0.00-0.30); CALCIUM LEVEL 8.2 MG/DL (8.8-10.2); CREATININE FOR GFR 4.86 MG/DL (0.70-1.30); MAGNESIUM LEVEL 2.5 MG/DL (1.8-2.4); POTASSIUM SERUM 4.2 MEQ/L (3.5-5.1); TOTAL PROTEIN 7.2 GM/DL (6.4-8.2)
--- NOTE | 2018-09-13 07:26 | CR ---
DATE OF CONSULTATION: 09/11/2018 REASON FOR CONSULTATION: Acute kidney injury. HISTORY OF PRESENT ILLNESS: Deo Early is a 63-year-old male with a past medical history of morbid obesity, recent diagnosis of diabetes with a hemoglobin A1c of 11%, hypertension, patient that has not seen a physician in more than 40 years. He had a necrotic wound on the right foot for the past days to weeks and presented to the emergency room on 09/07/2018 for further evaluation. His admission creatinine was around 0.9. He went to the operating room on 09/09/2018 for right foot incision, drainage and debridement, and he reportedly had hypoxemia and hypotension during the procedure. The following day the patient was noted to have an acute kidney injury, which has progressed and nephrology evaluation is subsequently requested. The patient has not had any contrast studies over the course of this admission. He has not received any nonsteroidal anti-inflammatory drugs. Of note, he was started on an angiotensin-converting enzyme (SHERRY) inhibitor, lisinopril, and this was stopped when labs showed acute kidney injury. Also, of note, the patient tells me that at home he usually sleeps in a recliner or with at least three pillows. He has been requiring oxygen overnight here in the hospital. PAST MEDICAL HISTORY: No followup with any healthcare provider for the past several decades, newly diagnosed diabetes, newly diagnosed hypertension, morbid obesity. PAST SURGICAL HISTORY: None reported. HOME MEDICATIONS: None reported. ALLERGIES: No known drug allergies. SOCIAL HISTORY: Lives at home. Denies smoking. No drug use. He is single. He reports social alcohol. FAMILY HISTORY: Strong family history for diabetes. REVIEW OF SYSTEMS: CONSTITUTIONAL: He reports fevers. Denies chills. EYES: Denies visual changes or tearing. ENT: Denies rhinorrhea or odynophagia. CARDIAC: Denies chest pain or palpitations. RESPIRATORY: Denies shortness of breath or cough. He is requiring oxygen at night. At home, sleeps in a recliner or uses three pillows. GASTROINTESTINAL (GI): He denies nausea, vomiting, diarrhea. GENITOURINARY (): He denies trouble urinating, dysuria, hematuria. ENDOCRINE: Newly diagnosed diabetes, obesity. HEMATOLOGIC: Denies easy bruising or bleeding. NEUROLOGIC: Denies seizure or syncope. PSYCHIATRIC: Denies depression or anxiety. MUSCULOSKELETAL: Denies any new myalgias or arthralgias. Positive for diabetic foot ulcer. Remainder of review of systems is negative as mentioned per history of the present illness. VITAL SIGNS: Temperature 97, pulse 104, respiratory rate 18, blood pressure 138/80, saturating 96% on room air. Intake yesterday was 2.9 liters and urine output yesterday has just been recorded as one void. GENERAL: Patient is seen sitting out of bed to the recliner, legs elevated, morbidly obese male, elderly, in no acute distress. CARDIAC: S1, S2, regular rate. Distant heart sound. No appreciable murmur. LUNGS: Diminished air movement at the bases, otherwise no crackles or rales. ABDOMEN: Obese soft, nontender. EXTREMITIES: Have about trace to 1+ edema bilaterally. The right forefoot has a large open wound with serosanguineous discharge and surrounding erythema and cellulitis. NEUROLOGIC: He is oriented times three. No focal deficit. LABORATORY: Sodium 132, potassium 3.9, bicarbonate 22, BUN 40, creatinine 3.6. Hemoglobin 12, white count 16. Microbiology: Blood culture with no growth times two sets for five days. Imaging: Renal ultrasound 09/10/2018 shows normal cortical echogenicity and no hydronephrosis. Left kidney 13.8 cm, right kidney 13.9 cm. Urinalysis 1+ protein. No significant urinary WBCs. INPATIENT MEDICATIONS: He is receiving ceftaroline 300 mg IV every 12 hours, Tylenol as needed, Norvasc 10 mg by mouth daily, heparin 5000 units subcu twice a day, insulin, metoprolol 25 mg by mouth twice a day, and Percocet as needed. PROBLEMS: 1. Nonoliguric acute kidney injury in the setting of perioperative hemodynamic fluctuation with concomitant SHERRY inhibitor dysautoregulation. While his exact urine output is not being measured, the patient reports several voids and tells me he has not noticed any decrease in urination. We will request for intake and output monitoring to ascertain that he is not oliguric. His SHERRY inhibitor was already appropriately stopped. I am concerned that he is developing some fluid overload. His daily weight shows an uptrend, and he is requiring supplemental oxygen at night. We will get an echocardiogram and CT chest to further evaluate. Will also request BNP. I am less suspicious for acute interstitial nephritis given the lack of urinary WBCs and his renal failure did precede the use of ceftaroline. I am lowering the dose of ceftaroline in reflection of his GFR. There are no dialysis needs at present, but we will continue to monitor him for any developing dialysis needs. If there is no improvement in renal function in the coming 24-48 hours, please consider changing his antimicrobial. 2. Hypervolemia. Patient appears to be in cumulative positive fluid balance. He is likely to need diuretics. Will get echocardiogram, CT chest, and BNP to further evaluate. Continue with daily weights and monitoring of intake and output. There are no signs of any obstruction. Will hold off on Toussaint catheter for now. 3. Newly diagnosed diabetes, presumably longstanding. Hemoglobin A1c 11%, 1+ proteinuria. Probably does have some diabetic nephropathy underlying, but he is not suitable for SHERRY inhibitor or angiotensin receptor geremias. Thank you for involving me in the care of Mr. Early. I am happy to follow him along with you.
[2018-09-13] MEDS: amLODIPine 10 MG TAB PO SCH (07:42)
[2018-09-13] MEDS: HumaLOG INSULIN (NovoLOG) PER UNIT SC SCH ×4 (07:42→20:35)
--- NOTE | 2018-09-13 08:55 | CR ---
DATE OF CONSULTATION: 09/12/2018 ADVANCED WOUND CARE CONSULT This is via telemedicine and today's date is 09/12/2018, consult requested by Dr. Lees This is regarding an advanced diabetic foot wound involving the dorsal aspect of his right foot Castano grade 3. HISTORY OF PRESENT ILLNESS: The patient was admitted 5 days ago with a significant infection involving the dorsal aspect of his right foot with associated deep tissue abscess. The patient is a 63-year-old male neuropathic diabetic, who had not seen a physician in over 40 years and was unaware that he was a diabetic or had any medical issues. When questioned he was unable to provide any pertinent past history. He was surgically treated by Dr. Suarez, in the operating room where an extensive debridement was performed. This was done on 09/10/2018. Wet-to-dry dressings were then utilized in the initial postoperative period. I have been asked to assist in wound care orders and suggestion on further evaluation and treatment. It should be noted that there were audio and visual communication difficulties during the evaluation which made obtaining a proper history and physical exam difficult and hindered the overall evaluation. Basic patient information, laboratory values, diagnostic testing, culture and sensitivity and present IV antibiotic therapy could not be readily provided by the PACU staff in the room during the evaluation. In reviewing the patient's laboratory studies, he has a hemoglobin A1c of 11 and a recent fasting glucose fasting of 210. His GFR is 14.4. This presents a problem for vascular evaluation, such as a CT angio would cause further renal compromise. An arterial ultrasound as an initial screening test should be considered A vascular consult will be ordered to further evaluate any arterial insufficiency which may be part of the patient's clinical problem. On inspection, the patient is morbidly obese with a neuropathic diabetic foot infection involving the majority of the dorsal aspect of his right foot extending into the third and fourth toes. This is a Castano grade 3 diabetic foot ulcer with deep structures exposed involving the extensor tendons and abscessed deep soft tissue. The wound measures 9.0 cm x 9.5 cm and the depth was estimated at 0.4 cm. The drainage is moderate to heavy and serosanguineous.. It is unclear whether or not palpable bone is present. The medial aspect of the wound edge shows ischemic necrosis with purplish discoloration. Original dressings were wet-to-dry; this will be discontinued and our suggestion is to use Vashe, a wound cleanser for 10 minutes utilizing a 4 x 4 gauze to cleanse the wound, followed by thin strips of Adaptic to cover any exposed tendons, Santyl, applying a nickel thick layer to the remaining wound base and, covering this with alginate and finally a foam dressing. Dressing should be changed on a daily basis. After the consult, I spoke with Dr. Suarez personally on the phone, and we discussed the case. He indicated that this was a serious infection and that there was a significant amount of purulent material drained at the time of the initial surgery, and that further OR debridement was planned. Preliminary wound cultures showed staph and strep, and the patient was on Zosyn with an infectious disease consult pending. I indicated to him that the patient is at significant risk for transmetatarsal amputation of all digits. However, an attempt to salvage this should be pursued, and an initial evaluation for vascular status is of paramount importance as part of his workup and treatment. I attempted to discuss this with the patient who was not interested. Again, the camera and audio was not functioning, and the patient did not seem to understand the severity of his condition.." Please reconsult if there are any additional aspects of his care that she wished to discuss. STEFANI
[2018-09-13 10:00] VITALS: BP 178/77
[2018-09-13] MEDS: METOPROLOL TART 25 MG TABLET PO SCH ×2 (10:10→20:35)
[2018-09-13] MEDS: HEPARIN SOD (PORCINE) 5000 UNITS/ML VIAL SQ SCH ×2 (10:10→20:35)
[2018-09-13] MEDS: LEVEMIR (INSULIN DETEMIR) 1 UNITS/0.01ML SC SCH ×2 (10:10→20:34)
--- NOTE | 2018-09-13 10:17 | IPN ---
DATE OF SERVICE: 09/12/2018 SUBJECTIVE: Patient seen and examined this morning sitting out of bed to the recliner. Reports uneventful overnight course. Has been requiring up to 3 liters of nasal cannula overnight, but during the daytime is saturating comfortably on room air. Denies shortness of breath. Urinary output is only being recorded as number of voids and not being measured for volume. Labs show worsening renal function. VITAL SIGNS: Temperature 98.0, pulse 92, respiratory rate 20, blood pressure 140/60, saturating 95% on room air. Intake yesterday was 2.2 liters. Urine output yesterday was recorded as six voids. Weight in the bed scale in 153.4 kg. GENERAL: Patient is seen sitting out of bed to the recliner. Obese male in no acute distress. Extraocular muscles are intact. Tongue is moist. The jugular veins appear elevated. CARDIAC: S1, S2, regular rate and rhythm. LUNGS: Are showing diminished breath sounds at the bases. There is no tachypnea or accessory muscle use. The abdomen is soft and nontender. There are bowel sounds. There is some edema in the dependent areas. The right forefoot is in dressing and there is 1+ edema in the legs. NEUROLOGIC: He is oriented times four. No focal deficit. LABS: Sodium 135, potassium 4.2, bicarbonate 22, BUN 53, creatinine 4.4, CRP 10. BNP 3600. White count 14, hemoglobin 12.6. No significant eosinophilia in the differential. No significant urinary WBCs. IMAGING: CT chest, 09/12/2018, mild pulmonary edema pattern with small bilateral pleural effusions. INPATIENT MEDICATIONS: Patient is being started on Lasix 40 mg intravenous (IV) every 8 hourly. Noted infectious diseases has adjusted his antimicrobials to Zosyn 2.25 grams IV every 12 hours. His remainder of medications are unchanged from prior. PROBLEMS: 1. Acute kidney injury, presumably secondary to perioperative hemodynamic stress causing tubular injury/acute tubular necrosis in the setting of SHERRY inhibitor dysautoregulation. No signs of renal recovery. No urgent dialysis needs at present. He is becoming hypervolemic. His BNP is elevated. His daily weights are uptrending. CT chest shows pulmonary edema pattern with pleural effusions. He is requiring oxygen at nighttime. I am starting him on Lasix 40 mg IV every 8 hourly. We will continue to monitor him for signs of either emerging dialysis needs or renal recovery. His antimicrobials are appropriately dosed in view of renal function, and he is not receiving any nephrotoxics. There is no strong evidence for drug-related interstitial nephritis. 2. Hypervolemia with pulmonary edema pattern on imaging and with bilateral pleural effusions with increasing daily weight and with elevated BNP. Get echocardiogram, and patient is being started on Lasix 40 mg IV every 8 hourly. Nursing staff has been instructed regarding need for collection of urine for measuring of urine output. 3. Newly diagnosed diabetes. A1c 11%. Urine analysis was 1+ protein. Diabetes is likely present for some time. He may have some underlying diabetic nephropathy. Baseline creatinine is around 0.9. He is not suitable for angiotensin-converting enzyme (SHERRY) or angiotensin receptor geremias (ARB) due to present acute kidney injury. 4. Diabetic foot ulcer. Antimicrobials have been adjusted as per infectious diseases. C-reactive protein (CRP) is improving, and his white count is improving as well.
--- NOTE | 2018-09-13 11:04 | NOCOX ---
DATE OF STUDY: 09/12 to 09/13/2018 The patient's oximetry was performed on room air. The patient had variable desaturations throughout the night. Resting oxygen saturation at the beginning of the study was 94% on room air and with a heart rate of 88. Throughout the evening there were significant variable desaturations associated with minimal to little heart rate variability. The longest continuous time with an oxygen saturation was 9 minutes 58 seconds. The total time with an oxygen saturation less than 88% was 49 minutes and 2 seconds. IMPRESSION: Variable oxygen saturation was significant hypoxia. If there is concern for underlying obstructive sleep apnea would recommend formal in lab polysomnogram.
[2018-09-13] MEDS ORDERED: FUROSEMIDE 100 MG/10 ML VIAL (J1940) IV ONE (11:30)
--- NOTE | 2018-09-13 12:49 | IPN ---
DATE OF VISIT: 09/13/2018 Mr. Early is seen this morning on his bedside. He reports that last evening his oxygen saturation was low so he was given oxygen. This morning, he is not using any oxygen. He denies any dyspnea, chest pain, nausea, or vomiting. He feels that he does have sleep apnea, even prior to this hospitalization but has never been tested. Patient was admitted with right foot cellulitis and diabetic foot ulcer. He also has acute renal failure and got volume overloaded. Yesterday, we started some intravenous (IV) Lasix and he did respond very well with negative fluid balance. He remains on antibiotics which has now been changed to Zosyn. On physical exam, temperature 98.3 degrees Fahrenheit, heart rate 78 per minute, and respiratory rate 18 per minute. Blood pressure 142/80 mmHg, and oxygen saturation 91% on room air. Patient is morbidly obese. His neck veins are difficult to be assessed. His head is atraumatic, and neck is supple. Pupils are equal and reactive to light, and sclera anicteric. Heart: Sounds are distant but regular. Lungs: Have moderate bilateral air entry without any wheezing or audible rales. Abdomen is obese, soft and nontender, and bowel sounds are normal. Extremities have no cyanosis or clubbing. He has an ulcer on the right foot which is covered with dressing. There is some erythema present on the ankle and foot. Neurologically, he is awake, alert, and oriented times three. Intake and output records from yesterday showed total intake 2520 and output 1975. For last 4 days, his urine output has been minimal between 100 and 400 mL every day. This morning so far his urine output is 2675 mL. Today's labs show WBC count 13.3, hemoglobin 13.1, and hematocrit 37.7. Platelets 356. Sodium 134, potassium 4.2, CO2 22, BUN 61, and creatinine 4.86. Glucose 206. C-reactive protein is 9.66. Yesterday his BNP level was 3620. PROBLEMS: 1. Acute renal failure. Most likely, patient has acute tubular necrosis related to hypotension during his surgery, SHERRY inhibitor use, nonsteroidal use prior to this admission, and ongoing sepsis. He is hemodynamically stable and afebrile now. He was oliguric for last 4 days; however, responded well to the diuretic and is now nonoliguric. He has good urine output today. I am going to stop Lasix dose every 8 hours and give him just to one dose of Lasix 80 mg today and continue to monitor his renal function on a daily basis. I have explained to patient that his kidney function is likely to improve with the next 7-10 days. It is quite possible that he might require temporary dialysis during this period if his kidney function does not improve and he develops any electrolyte problems. Fortunately, he is not oliguric anymore, and volume status can be corrected with diuretics. 2. Hypoxemia. His oxygen saturation is 91% on room air. He is morbidly obese and most likely has obstructive sleep apnea. He is also volume overloaded due to oliguria and intravenous (IV) fluids. He does respond to Lasix very well, and I am going to give him one dose of Lasix 80 mg today. 3. Diabetic foot ulcer and cellulitis. Patient is now on Zosyn and afebrile. His wound has already been debrided. 4. Hypertension. Blood pressure seems reasonable at present, and SHERRY inhibitor has already been stopped. Currently, he is on low-dose beta geremias and calcium channel geremias. We are also giving him diuretic due to hypervolemia, and his hypertension is likely to improve. We will probably consider cutting down the dose of amlodipine if his blood pressure goes to low.
[2018-09-13 14:00] VITALS: BP 179/69
--- NOTE | 2018-09-13 14:05 | ECHO ---
DATE OF SERVICE: 09/12/2018 REFERRING PROVIDER: Dr. Sanket Meehan PATIENT LOCATION: Room 3216 REASON FOR ECHOCARDIOGRAM: Shortness of breath. 2D MEASUREMENTS: IVS: 1.3 cm LV: 4.6 cm LVPW: 1.2 cm LA: 3.3 cm Aorta: 3.2 cm IVC: 2.1 cm DOPPLER MEASUREMENTS: Peak velocity across the aortic valve: 1.4 m/s Peak velocity across the LVOT: 1.1 m/s Mitral E: 1.2 Mitral A: 0.69 with a ratio of 1.7 2D COMMENTS: 1. Technically limited study due to poor acoustic window secondary to lung interference and body habitus. 2. Normal left ventricular size with mildly increased left ventricular wall thickness. Left ventricular systolic function is normal with LVEF estimated at 60-65%. 3. Subjectively, the left atrium appeared to be mildly enlarged. Normal right atrium and left ventricle. 4. The atrial septum appeared to be normal without evidence of defect or shunt. 5. Normal aortic root. 6. No pericardial effusion seen. 7. Minimally calcified aortic valve with normal leaflet excursion. Mildly calcified mitral annulus with normal anterior mitral valve leaflet motion. Normal tricuspid valve and the pulmonic valve was not well visualized. The proximal pulmonary artery branches also were not well visualized. 8. The inferior vena cava is mildly dilated, central venous pressure might be elevated. DOPPLER: It detects mild mitral regurgitation, and trace tricuspid regurgitation. The pulmonary artery systolic pressure is most likely normal. Abnormal relaxation pattern was noted across the mitral valve annulus consistent with grade 2 left ventricular diastolic dysfunction. IMPRESSION: 1. Normal global left ventricular systolic function with mild concentric left ventricular hypertrophy (LVH). There were some features of left ventricular diastolic dysfunction, grade 2. 2. Aortic valve sclerosis without evidence of stenosis or/and regurgitation. 3. Mitral annulus calcification with mild mitral regurgitation. Subjectively, the left atrium appeared to be mildly enlarged. 4. Trace tricuspid regurgitation. 5. The inferior vena cava was dilated. Central venous pressure might be elevated. 6. The study was technically limited due to poor acoustic window, secondary to body habitus and lung interference. [facility]
--- NOTE | 2018-09-13 14:35 | IPNPDOC ---
Subjective Date Seen The patient was seen on 09/13/18. Subjective Chief Complaint/HPI No complaints today. Had nocturnal pulse oximetry done suggestive of underlying CHELO will need sleep study as outpatient. Objective Physical Examination General Exam: Positive: Alert, Cooperative, No Acute Distress ENT Exam: Positive: Atraumatic, Mucous membr. moist/pink Neck Exam: Negative: JVD Chest Exam: Positive: Clear to auscultation, Normal air movement Heart Exam: Positive: Rate Normal, Normal S2 Abdomen Exam: Positive: Soft; Negative: Tenderness Extremity Exam: Positive: Other (right forefoot noted to be wrapped in surgical dressing. Surrounding area of erythema appears to be improved from previously demarcated margins.) Psych Exam: Positive: Oriented x 3 Assessment /Plan Assessment Sepsis 2/2 Right Diabetic Foot Infection Blood cultures unrevealing thus far WBC improved, fever has also subsided MRI Foot with no evidence of osteomyelitis Podiatry consulted--s/p I&D on 09/09/18 will need further visit to OR once more stable. Cultures growing multiple oranisms consulted ID On rush Acute Kidney Injury Likely 2/2 relative hypotension--Patient was noted to have a SBP of 205 early yesterday morning prior to procedure, and after receiving his medications for the AM, and Anesthesia (Propofol, Versed) for his procedure his BP was noted to be 87/51 at noon post-operatively and being on lisinopril. Renal U/S with no obstruction creatinine up a little bit today again volume status better today. Lasix stopped. New diagnosis of diabetes HgbA1c noted to be 11% We are currently up-titrating the patient's Insulin dosing Diabetic teaching ordered We will cont to monitor blood glucose levels Morbid obesity with possibly CHELO As seen with hypoxia during sleep will get nocturnal pulse oximetry. Newly diagnosed Hypertension Cont amlodipine. BP not well controlled will start metoprolol. Deep venous thrombosis (DVT) prophylaxis Lovenox SC Plan/VTE VTE Prophylaxis Ordered?: Yes VS, I&O, 24H, [place] Vital Signs/I&O Vital Signs Date Time Temp Pulse Resp B/P (MAP) Pulse Ox O2 Delivery O2 Flow Rate FiO2 09/13/18 10:10 78 142/80 09/13/18 10:00 98.3 18 91 09/12/18 19:00 Room Air 09/12/18 07:45 2.0 I&O- Last 24 Hours up to 6 AM 09/13/18 06:00 Intake Total 2090 ml Output Total 4000 ml Balance -1910 ml Laboratory Data 24H LABS Laboratory Tests 2 09/12/18 14:44: Urine WBC (Auto) 1, Urine RBC (Auto) 0, Urine Hyaline Casts (Auto) 0, Urine Bacteria (Auto) 1+H, Urine Squamous Epithelial Cells 0, Urine Amorphous Sediment SMALLH, Urine Sperm (Auto) 09/12/18 17:55: Bedside Glucose (Misc Panel) 171H 09/12/18 20:07: Bedside Glucose (Misc Panel) 191H 09/13/18 06:10: Nucleated Red Blood Cells % (auto) 0.0, Anion Gap 13, Glomerular Filtration Rate 13.0L, Blood Urea Nitrogen 61H, Creatinine 4.86H, Sodium Level 134L, Potassium Level 4.2, Chloride Level 99, Carbon Dioxide Level 22, Calcium Level 8.2L, Aspartate Amino Transf (AST/SGOT) 13, Alanine Aminotransferase (ALT/SGPT) 23, Alkaline Phosphatase 119H, Total Bilirubin 0.4, Total Protein 7.2, Albumin 1.9L, Magnesium Level 2.5H, C-Reactive Protein, Quantitative 9.66H, Albumin/Globulin Ratio 0.36L 09/13/18 11:27: Bedside Glucose (Misc Panel) 201H CBC/BMP Laboratory Tests 09/13/18 06:10 Red Blood Count 4.17 L, Mean Corpuscular Volume 90.4, Mean Corpuscular Hemoglobin 31.4, Mean Corpuscular Hemoglobin Concent 34.7, Red Cell Distribution Width 11.7, Calcium Level 8.2 L, Aspartate Amino Transf (AST/SGOT) 13, Alanine Aminotransferase (ALT/SGPT) 23, Alkaline Phosphatase 119 H, Total Bilirubin 0.4, Total Protein 7.2, Albumin 1.9 L Microbiology Microbiology 09/07/18 Blood Culture - Final, Complete NO GROWTH AFTER 5 DAYS 09/07/18 Blood Culture - Final, Complete NO GROWTH AFTER 5 DAYS 09/09/18 Gram Stain - Final, Complete 09/09/18 Wound Culture - Final, Complete Strep Agalactiae Group B Staphylococcus Sp Coag Neg 09/09/18 Anaerobic Culture - Final, Complete 09/07/18 Gram Stain - Final, Complete 09/07/18 Wound Culture - Final, Complete Acinetobacter Baumannii Comple Staphylococcus Sp Coag Neg Corynebacterium Species Strep Agalactiae Group B MINE ROLLE MD Sep 13, 2018 14:34
[2018-09-13 19:24] VITALS: BP 173/86
[2018-09-13 22:00] VITALS: BP 150/76
[2018-09-14] VITALS (7 sets, daily range): BP systolic 134–156; BP diastolic 60–86
[2018-09-14] MEDS: PIPERACILLIN/TAZOBACTAM SOD 2.25 GM in D5W MINI-BAG PLUS 50 ML IV SCH ×2 (05:14→17:46)
[2018-09-14] MEDS: SLF 3 ML SYR IV SCH ×3 (05:14→21:56)
[2018-09-14 06:44] LABS: HEMATOCRIT 39.7 % (42.0-52.0); HEMOGLOBIN 13.3 g/dl (13.5-17.5); MEAN CORPUSCULAR HEMOGLOBIN 31.3 pg (27.0-33.0); MEAN CORPUSCULAR HGB CONC 33.5 g/dl (32.0-36.5); MEAN CORPUSCULAR VOLUME 93.4 fl (80.0-96.0); PLATELET COUNT, AUTOMATED 330 10^3/uL (150-450); RED BLOOD COUNT 4.25 10^6/uL (4.30-6.10); WHITE BLOOD COUNT 11.7 10^3/uL (4.0-10.0)
[2018-09-14 07:05] LABS: ALBUMIN 1.9 GM/DL (3.2-5.2); BILIRUBIN,TOTAL 0.4 MG/DL (0.2-1.0); C REACTIVE PROTEIN QUANTITATIV 7.02 MG/DL (0.00-0.30); CALCIUM LEVEL 7.9 MG/DL (8.8-10.2); CREATININE FOR GFR 5.28 MG/DL (0.70-1.30); GLOMERULAR FILTRATION RATE 11.9 (>49); MAGNESIUM LEVEL 2.4 MG/DL (1.8-2.4); POTASSIUM SERUM 4.4 MEQ/L (3.5-5.1)
[2018-09-14] MEDS: amLODIPine 10 MG TAB PO SCH (08:13)
[2018-09-14] MEDS: METOPROLOL TART 25 MG TABLET PO SCH ×2 (08:13→20:37)
[2018-09-14] MEDS: PERCOCET 5MG/325MG TAB PO PRN ×3 (08:14→17:46)
[2018-09-14] MEDS: HumaLOG INSULIN (NovoLOG) PER UNIT SC SCH ×4 (08:15→20:36)
[2018-09-14] MEDS: SANTYL OINT 30GM TOP SCH (08:16)
[2018-09-14] MEDS: HEPARIN SOD (PORCINE) 5000 UNITS/ML VIAL SQ SCH ×2 (08:16→20:36)
[2018-09-14] MEDS: LEVEMIR (INSULIN DETEMIR) 1 UNITS/0.01ML SC SCH ×2 (08:16→20:36)
--- NOTE | 2018-09-14 13:24 | IPN ---
DATE OF VISIT: 09/14/2018 Mr. Early is seen this morning on his bedside. He feels about the same and denies any new complaints. He denies any significant pain in his right foot. He has no dyspnea, chest pain, nausea, or vomiting. He diuresed very well, and Toussaint catheter is draining clear urine. On physical exam, temperature 97.1 degrees Fahrenheit, heart rate 70 per minute, and respiratory rate 20 per minute. Blood pressure 134/60 mmHg, and oxygen saturation 93% on room air. Intake and output records from yesterday showed total intake 2090 and output 4525 mL. His head is atraumatic. Neck veins are prominent and better visible today. He has no oral thrush or ulcers. Heart: Sounds are regular and lungs with diminished breath sounds bilaterally. Abdomen: Obese, soft and nontender, and bowel sounds are normal. Extremities have no cyanosis or clubbing. Right foot ulcer is without any bleeding. There is minimal serous drainage. He does have some edema on his right leg. Neurologically, he is awake, alert and oriented times three. Today's labs show WBC count 11.7, hemoglobin 13.3, and hematocrit 39.7. Sodium 132, potassium 4.4, CO2 21, BUN 74, creatinine 5.28. Glucose 225 and calcium 7.9. PROBLEMS: 1. Acute renal failure. Kidney function is gradually worsening. He does not have any uremic symptoms. He does not have acidosis or hyperkalemia so far, and we will continue to monitor his kidney function on a daily basis. There is no emergent indication for dialysis at this time. I would recommend to avoid all nephrotoxic medications and dose adjust the antibiotics for his kidney function. 2. Hyponatremia. He has mild hyponatremia which is stable and does not need any intervention. He is not receiving any intravenous (IV) fluid at this time. 3. Hypervolemia and hypoxemia. His volume status is still slightly decompensated. Yesterday, I had given one dose of Lasix and he diuresed very well. Today, he is significantly negative without any diuretic given. I will watch him and see how he does. It is likely that he has diuretic phase of acute renal failure already. He is oxygenating well on room air and there is no emergent need for diuretic. 4. Right foot diabetic ulcer and cellulitis. Patient remains on Zosyn. He is currently afebrile. I think he will need a vascular surgery evaluation at some point; however, right now he has acute renal failure and IV contrast will not be the best option. Once his kidney function starts improving then we can consider getting an angiogram of his lower extremities.
--- NOTE | 2018-09-14 14:06 | IPNPDOC ---
Subjective Date Seen The patient was seen on 09/14/18. Subjective Chief Complaint/HPI Mr. Early is seen this morning on his bedside. He feels about the same and denies any new complaints. He denies any significant pain in his right foot. He has no dyspnea, chest pain, nausea, or vomiting. He diuresed very well, and Toussaint catheter is draining clear urine. Objective Physical Examination General Exam: Positive: Alert, Cooperative, No Acute Distress ENT Exam: Positive: Atraumatic, Mucous membr. moist/pink Neck Exam: Negative: JVD Chest Exam: Positive: Clear to auscultation, Normal air movement Heart Exam: Positive: Rate Normal, Normal S2 Abdomen Exam: Positive: Soft; Negative: Tenderness Extremity Exam: Positive: Other (right forefoot noted to be wrapped in surgical dressing. Surrounding area of erythema appears to be improved from previously demarcated margins.) Psych Exam: Positive: Oriented x 3 Assessment /Plan Assessment Sepsis 2/2 Right Diabetic Foot Infection Blood cultures unrevealing thus far WBC improved, fever has also subsided MRI Foot with no evidence of osteomyelitis Podiatry consulted--s/p I&D on 09/09/18 will need further visit to OR once more stable. Cultures growing multiple oranisms consulted ID On rush Acute Kidney Injury Likely 2/2 relative hypotension--Patient was noted to have a SBP of 205 early yesterday morning prior to procedure, and after receiving his medications for the AM, and Anesthesia (Propofol, Versed) for his procedure his BP was noted to be 87/51 at noon post-operatively and being on lisinopril. Renal U/S with no obstruction creatinine up a little bit today again volume status better today. Lasix stopped. New diagnosis of diabetes HgbA1c noted to be 11% We are currently up-titrating the patient's Insulin dosing Diabetic teaching ordered We will cont to monitor blood glucose levels Morbid obesity with possibly CHELO As seen with hypoxia during sleep will get nocturnal pulse oximetry. Newly diagnosed Hypertension Cont amlodipine. BP not well controlled will start metoprolol. Deep venous thrombosis (DVT) prophylaxis Lovenox SC Plan/VTE VTE Prophylaxis Ordered?: Yes VS, I&O, 24H, Fishbone Vital Signs/I&O Vital Signs Date Time Temp Pulse Resp B/P (MAP) Pulse Ox O2 Delivery O2 Flow Rate FiO2 09/14/18 13:22 18 09/14/18 12:00 97.1 69 134/60 (84) 93 09/12/18 19:00 Room Air 09/12/18 07:45 2.0 I&O- Last 24 Hours up to 6 AM 09/14/18 06:00 Intake Total 2040 ml Output Total 4050 ml Balance -2010 ml Laboratory Data 24H LABS Laboratory Tests 2 09/13/18 16:26: Bedside Glucose (Misc Panel) 169H 09/13/18 19:55: Bedside Glucose (Misc Panel) 222H 09/14/18 06:10: Nucleated Red Blood Cells % (auto) 0.0, Anion Gap 13, Glomerular Filtration Rate 11.9L, Blood Urea Nitrogen 74H, Creatinine 5.28H, Sodium Level 132L, Potassium Level 4.4, Chloride Level 98, Carbon Dioxide Level 21, Calcium Level 7.9L, Aspartate Amino Transf (AST/SGOT) 14, Alanine Aminotransferase (ALT/SGPT) 22, Alkaline Phosphatase 108, Total Bilirubin 0.4, Total Protein 7.0, Albumin 1.9L, Magnesium Level 2.4, C-Reactive Protein, Quantitative 7.02H, Albumin/Globulin Ratio 0.37L 09/14/18 11:13: Bedside Glucose (Misc Panel) 193H CBC/BMP Laboratory Tests 09/14/18 06:10 Red Blood Count 4.25 L, Mean Corpuscular Volume 93.4, Mean Corpuscular Hemoglobi n 31.3, Mean Corpuscular Hemoglobin Concent 33.5, Red Cell Distribution Width 11.7, Calcium Level 7.9 L, Aspartate Amino Transf (AST/SGOT) 14, Alanine Aminotransferase (ALT/SGPT) 22, Alkaline Phosphatase 108, Total Bilirubin 0.4, Total Protein 7.0, Albumin 1.9 L Microbiology Microbiology 09/07/18 Blood Culture - Final, Complete NO GROWTH AFTER 5 DAYS 09/07/18 Blood Culture - Final, Complete NO GROWTH AFTER 5 DAYS 09/09/18 Gram Stain - Final, Complete 09/09/18 Wound Culture - Final, Complete Strep Agalactiae Group B Staphylococcus Sp Coag Neg 09/09/18 Anaerobic Culture - Final, Complete 09/07/18 Gram Stain - Final, Complete 09/07/18 Wound Culture - Final, Complete Acinetobacter Baumannii Comple Staphylococcus Sp Coag Neg Corynebacterium Species Strep Agalactiae Group B MINE ROLLE MD Sep 14, 2018 14:06
[2018-09-15 02:00] VITALS: BP 139/69
[2018-09-15 04:00] VITALS: BP 139/69
[2018-09-15] MEDS: SLF 3 ML SYR IV SCH ×3 (05:10→21:02)
[2018-09-15] MEDS: PIPERACILLIN/TAZOBACTAM SOD 2.25 GM in D5W MINI-BAG PLUS 50 ML IV SCH ×2 (05:10→18:01)
[2018-09-15 06:00] VITALS: BP 150/74
[2018-09-15 06:35] LABS: HEMATOCRIT 40.4 % (42.0-52.0); HEMOGLOBIN 13.5 g/dl (13.5-17.5); MEAN CORPUSCULAR HGB CONC 33.4 g/dl (32.0-36.5); MEAN CORPUSCULAR VOLUME 92.9 fl (80.0-96.0); PLATELET COUNT, AUTOMATED 338 10^3/uL (150-450); RED BLOOD COUNT 4.35 10^6/uL (4.30-6.10); WHITE BLOOD COUNT 11.7 10^3/uL (4.0-10.0)
[2018-09-15 07:01] LABS: BILIRUBIN,TOTAL 0.3 MG/DL (0.2-1.0); C REACTIVE PROTEIN QUANTITATIV 5.41 MG/DL (0.00-0.30); CREATININE FOR GFR 5.35 MG/DL (0.70-1.30); GLOMERULAR FILTRATION RATE 11.7 (>49); MAGNESIUM LEVEL 2.7 MG/DL (1.8-2.4); POTASSIUM SERUM 4.7 MEQ/L (3.5-5.1); TOTAL PROTEIN 7.3 GM/DL (6.4-8.2)
[2018-09-15] MEDS: HEPARIN SOD (PORCINE) 5000 UNITS/ML VIAL SQ SCH ×2 (08:22→21:01)
[2018-09-15] MEDS: METOPROLOL TART 25 MG TABLET PO SCH ×2 (08:22→21:01)
[2018-09-15] MEDS: amLODIPine 10 MG TAB PO SCH (08:22)
[2018-09-15] MEDS: PERCOCET 5MG/325MG TAB PO PRN ×3 (08:23→18:07)
[2018-09-15] MEDS: SANTYL OINT 30GM TOP SCH (08:23)
[2018-09-15] MEDS: LEVEMIR (INSULIN DETEMIR) 1 UNITS/0.01ML SC SCH ×2 (08:23→21:02)
[2018-09-15] MEDS: HumaLOG INSULIN (NovoLOG) PER UNIT SC SCH ×4 (08:24→21:02)
--- NOTE | 2018-09-15 13:11 | IPNPDOC ---
Subjective Date Seen The patient was seen on 09/15/18. Subjective Chief Complaint/HPI No complaints this morning. Objective Physical Examination General Exam: Positive: Alert, Cooperative, No Acute Distress ENT Exam: Positive: Atraumatic, Mucous membr. moist/pink Neck Exam: Negative: JVD Chest Exam: Positive: Clear to auscultation, Normal air movement Heart Exam: Positive: Rate Normal, Normal S2 Abdomen Exam: Positive: Soft; Negative: Tenderness Extremity Exam: Positive: Tenderness Skin Exam: Positive: Other skin issue (wound measures 9.0 cm x 9.5 cm on darwin dorsum of the right foot. There was an area of necrosis on the medial aspect of the wound. There is an area of Necrosis on the planter aspect of the foot also. The extensor tendons are exposed. ) Psych Exam: Positive: Oriented x 3 Assessment /Plan Assessment Sepsis 2/2 Right Diabetic neuropathic Foot Infection Blood cultures negative MRI Foot with no evidence of osteomyelitis Patient will need vascular evaluation for the foot as may need transmetatarsal amputation if it cannot be salvaged. s/p I&D on 09/09/18 will need further visit to OR once more stable. Cultures growing multiple organisms consulted ID On zosyn Evaluate for Peripheral vascular disease will have to consult vascular for evaluation once patient's renal function improves. Acute Kidney Injury Likely 2/2 relative hypotension--Patient was noted to have a SBP of 205 early yesterday morning prior to procedure, and after receiving his medications for the AM, and Anesthesia (Propofol, Versed) for his procedure his BP was noted to be 87/51 at noon post-operatively and being on lisinopril. Renal U/S with no obstruction creatinine up a little bit today but seems to be plateauing. New diagnosis of diabetes HgbA1c noted to be 11% We are currently up-titrating the patient's Insulin dosing Diabetic teaching ordered We will cont to monitor blood glucose levels Morbid obesity with possibly CHELO As seen with hypoxia during sleep Nocturnal oximetry also suggests underlying CHELO will need sleep study after discharge Newly diagnosed Hypertension Cont amlodipine. BP not well controlled will start metoprolol. Deep venous thrombosis (DVT) prophylaxis Lovenox SC Plan/VTE VTE Prophylaxis Ordered?: Yes VS, I&O, 24H, Fishbone Vital Signs/I&O Vital Signs Date Time Temp Pulse Resp B/P (MAP) Pulse Ox O2 Delivery O2 Flow Rate FiO2 09/15/18 12:28 18 09/15/18 08:22 80 150/74 09/15/18 06:00 96.4 93 09/12/18 19:00 Room Air 09/12/18 07:45 2.0 I&O- Last 24 Hours up to 6 AM 09/15/18 06:00 Intake Total 1850 ml Output Total 3225 ml Balance -1375 ml Laboratory Data 24H LABS Laboratory Tests 2 09/14/18 16:56: Bedside Glucose (Misc Panel) 208H 09/14/18 20:18: Bedside Glucose (Misc Panel) 227H 09/15/18 06:01: Nucleated Red Blood Cells % (auto) 0.0, Anion Gap 11, Glomerular Filtration Rate 11.7L, Blood Urea Nitrogen 83H, Creatinine 5.35H, Sodium Level 132L, Potassium Level 4.7, Chloride Level 100, Carbon Dioxide Level 21, Calcium Level 8.0L, Aspartate Amino Transf (AST/SGOT) 17, Alanine Aminotransferase (ALT/SGPT) 23, Alkaline Phosphatase 112, Total Bilirubin 0.3, Total Protein 7.3, Albumin 2.0L, Magnesium Level 2.7H, C-Reactive Protein, Quantitative 5.41H, Albumin/Globulin Ratio 0.38L 09/15/18 11:58: Bedside Glucose (Misc Panel) 244H CBC/BMP Laboratory Tests 09/15/18 06:01 Red Blood Count 4.35, Mean Corpuscular Volume 92.9, Mean Corpuscular Hemoglobin 31.0, Mean Corpuscular Hemoglobin Concent 33.4, Red Cell Distribution Width 11.6, Calcium Level 8.0 L, Aspartate Amino Transf (AST/SGOT) 17, Alanine Aminotransferase (ALT/SGPT) 23, Alkaline Phosphatase 112, Total Bilirubin 0.3, Total Protein 7.3, Albumin 2.0 L Microbiology Microbiology 09/07/18 Blood Culture - Final, Complete NO GROWTH AFTER 5 DAYS 09/07/18 Blood Culture - Final, Complete NO GROWTH AFTER 5 DAYS 09/09/18 Gram Stain - Final, Complete 09/09/18 Wound Culture - Final, Complete Strep Agalactiae Group B Staphylococcus Sp Coag Neg 09/09/18 Anaerobic Culture - Final, Complete 09/07/18 Gram Stain - Final, Complete 09/07/18 Wound Culture - Final, Complete Acinetobacter Baumannii Comple Staphylococcus Sp Coag Neg Corynebacterium Species Strep Agalactiae Group B MINE ROLLE MD Sep 15, 2018 13:11
[2018-09-15 14:00] VITALS: BP 155/72
[2018-09-15 18:00] VITALS: BP 146/78
[2018-09-15 20:00] VITALS: BP 189/84
[2018-09-16] VITALS (7 sets, daily range): BP systolic 141–178; BP diastolic 57–86
[2018-09-16] MEDS: PIPERACILLIN/TAZOBACTAM SOD 2.25 GM in D5W MINI-BAG PLUS 50 ML IV SCH ×2 (05:10→18:43)
[2018-09-16] MEDS: SLF 3 ML SYR IV SCH ×3 (05:12→22:00)
[2018-09-16] MEDS: PERCOCET 5MG/325MG TAB PO PRN ×2 (05:24→23:07)
[2018-09-16] MEDS: HumaLOG INSULIN (NovoLOG) PER UNIT SC SCH ×4 (07:53→20:51)
[2018-09-16] MEDS: LEVEMIR (INSULIN DETEMIR) 1 UNITS/0.01ML SC SCH ×2 (07:54→20:52)
[2018-09-16] MEDS: METOPROLOL TART 25 MG TABLET PO SCH ×2 (07:57→20:51)
[2018-09-16] MEDS: amLODIPine 10 MG TAB PO SCH (07:57)
[2018-09-16] MEDS: SANTYL OINT 30GM TOP SCH (07:58)
--- NOTE | 2018-09-16 08:30 | IPNPDOC ---
Date Seen The patient was seen on 09/16/18. Progress Note SUBJECTIVE: going to OR today. no fever overnight. no chills. no other c/o. OBJECTIVE VITALS: PLS SEE BELOW General Exam: Positive: Alert, Cooperative, No Acute Distress ENT Exam: Positive: Atraumatic, Mucous membr. moist/pink Neck Exam: Negative: JVD Chest Exam: Positive: Clear to auscultation, Normal air movement Heart Exam: Positive: Rate Normal, Normal S2 Abdomen Exam: Positive: Soft; Negative: Tenderness Extremity Exam: Positive: Tenderness Skin Exam: Positive: Other skin issue (wound measures 9.0 cm x 9.5 cm on darwin dorsum of the right foot. There was an area of necrosis on the medial aspect of the wound. There is an area of Necrosis on the planter aspect of the foot also. The extensor tendons are exposed. ) Psych Exam: Positive: Oriented x 3 Assessment /Plan Assessment Sepsis 2/2 Right Diabetic neuropathic Foot Infection Blood cultures negative MRI Foot with no evidence of osteomyelitis Patient will need vascular evaluation for the foot as may need transmetatarsal amputation if it cannot be salvaged. s/p I&D on 09/09/18 will need further visit to OR once more stable. Cultures growing multiple organisms consulted ID On zosyn Evaluate for Peripheral vascular disease will have to consult vascular for evaluation once patient's renal function improves. Acute Kidney Injury Likely 2/2 relative hypotension--Patient was noted to have a SBP of 205 early yesterday morning prior to procedure, and after receiving his medications for the AM, and Anesthesia (Propofol, Versed) for his procedure his BP was noted to be 87/51 at noon post-operatively and being on lisinopril. Renal U/S with no obstruction creatinine up a little bit today but seems to be plateauing. New diagnosis of diabetes HgbA1c noted to be 11% We are currently up-titrating the patient's Insulin dosing Diabetic teaching ordered We will cont to monitor blood glucose levels Morbid obesity with possibly CHELO As seen with hypoxia during sleep Nocturnal oximetry also suggests underlying CHELO will need sleep study after discharge Newly diagnosed Hypertension Cont amlodipine. BP not well controlled will start metoprolol. Deep venous thrombosis (DVT) prophylaxis VS, I&O, 24H, Fishbone Vital Signs/I&O Vital Signs Date Time Temp Pulse Resp B/P (MAP) Pulse Ox O2 Delivery O2 Flow Rate FiO2 4/2/19 07:57 84 160/80 09/16/18 06:00 98.2 18 90 09/12/18 19:00 Room Air 09/12/18 07:45 2.0 I&O- Last 24 Hours up to 6 AM 09/16/18 06:00 Intake Total 1730 ml Output Total 3100 ml Balance -1370 ml Laboratory Data 24H LABS Laboratory Tests 2 09/15/18 11:58: Bedside Glucose (Misc Panel) 244H 09/15/18 17:16: Bedside Glucose (Misc Panel) 221H 09/15/18 20:14: Bedside Glucose (Misc Panel) 284H 09/16/18 05:11: Bedside Glucose (Misc Panel) 172H Microbiology Microbiology 09/07/18 Blood Culture - Final, Complete NO GROWTH AFTER 5 DAYS 09/07/18 Blood Culture - Final, Complete NO GROWTH AFTER 5 DAYS 09/09/18 Gram Stain - Final, Complete 09/09/18 Wound Culture - Final, Complete Strep Agalactiae Group B Staphylococcus Sp Coag Neg 09/09/18 Anaerobic Culture - Final, Complete 09/07/18 Gram Stain - Final, Complete 09/07/18 Wound Culture - Final, Complete Acinetobacter Baumannii Comple Staphylococcus Sp Coag Neg Corynebacterium Species Strep Agalactiae Group B EDEN HADDAD MD Sep 16, 2018 08:30
[2018-09-16 08:35] LABS: HEMATOCRIT 39.8 % (42.0-52.0); HEMOGLOBIN 13.4 g/dl (13.5-17.5); MEAN CORPUSCULAR HEMOGLOBIN 31.3 pg (27.0-33.0); MEAN CORPUSCULAR HGB CONC 33.7 g/dl (32.0-36.5); PLATELET COUNT, AUTOMATED 316 10^3/uL (150-450); RED BLOOD COUNT 4.28 10^6/uL (4.30-6.10); WHITE BLOOD COUNT 9.7 10^3/uL (4.0-10.0)
[2018-09-16 09:10] LABS: BASO # 0.1 10^3/uL (0.0-0.2); BASO % 0.5 % (0.0-1.0); EOS # 0.1 10^3/uL (0.0-0.50); EOS % 0.8 % (0.0-3.0); LYMPH % 10.5 % (24.0-44.0); MONO # 0.7 10^3/uL (0.0-0.8); MONO % 6.7 % (0.0-5.0); NEUTROPHILS # 8.1 10^3/uL (1.8-7.7); NEUTROPHILS % 81.1 % (36.0-66.0)
[2018-09-16 09:13] LABS: CALCIUM LEVEL 7.7 MG/DL (8.8-10.2); CREATININE FOR GFR 5.16 MG/DL (0.70-1.30); GLOMERULAR FILTRATION RATE 12.2 (>49); PHOSPHORUS LEVEL 6.4 MG/DL (2.5-4.9); POTASSIUM SERUM 5.5 MEQ/L (3.5-5.1)
--- NOTE | 2018-09-16 09:13 | IPN ---
DATE: 09/15/2018 Mr. Early is seen this morning on his bedside. He is feeling well and denies any new complaints. His right foot is slightly sore but denies any fever or chills. He denies any nausea, vomiting, dyspnea or chest pain. PHYSICAL EXAMINATION: Temperature 96.4 degrees Fahrenheit, heart rate 80 per minute and respiratory rate 18 per minute. Blood pressure 150/74 mmHg and oxygen saturation 93% on room air. Intake and output records from yesterday showed total intake of 1850 and output 3275 with a negative fluid balance of 1425. His head is atraumatic. Neck is supple and jugular venous distention (JVD) is minimally elevated. There is no oral thrush or ulcers. Heart sounds are regular and lungs clear to auscultation. Abdomen is obese, soft and nontender. Bowel sounds are normal. Extremities have no cyanosis or clubbing. Right foot wound is covered with dressing. Neurologically, he is awake, alert and oriented times three. Today's labs show WBC count 11.7, hemoglobin 13.5 and hematocrit 40.4. Sodium 132, potassium 4.7, CO2 21, BUN 83 and creatinine 5.35. Glucose is 242. PROBLEMS: 1. Acute renal failure. Kidney function is only slightly worse compared to yesterday. He has been in negative fluid balance, most likely with diuretic phase of acute tubular necrosis (ATN). I am anticipating improvement in his kidney function in the next 24 hours. At this point, there is no emergent indication for dialysis. His electrolytes are within normal range and he does not have any metabolic acidosis. Volume status is well-compensated. 2. Right foot diabetic ulcer. The patient is being treated with intravenous Zosyn and currently afebrile. He is likely to have further debridement. He is also going to require angiogram of his right lower extremity to rule out any possibility of vascular compromise. Once his kidney function starts improving then angiogram can be considered. 3. Hypertension. Blood pressure is reasonable and no changes in antihypertensives are being made today.
[2018-09-16 09:15] LABS: PLATELET ESTIMATE NORMAL (NORMAL)
--- NOTE | 2018-09-16 09:28 | IPN ---
DATE OF SERVICE: 09/15/2018 The patient is seen and examined. Denies overnight complaints. States he has some pain in his foot but generally, it is well controlled. Labs are reviewed. White blood cell count has trended down to 11.7, hemoglobin 13.5. CRP 5.41. Creatinine remains elevated at 5.35. Most recent cultures have grown Group B Streptococcus and coag negative Staphylococcus. Lower extremity examination: Erythema and edema of the foot as a whole has improved. There is some necrotic and dysvascular tissue at the wound margins and at the wound base. There is some granular tissue along the edges. The 4th and 5th toes have some duskiness but there is capillary refill to these digits. ASSESSMENT: 63-year-old diabetic male with cellulitis, abscess and foot ulceration. Consultations appreciated from infectious disease, wound care and nephrology. Will plan on debridement tomorrow in the operating room (OR) to remove some further nonviable tissue. He is to be nothing by mouth after 8 in the morning. Hold morning anticoagulation. Wound care per Dr. England's recommendations.
[2018-09-16] MEDS: SODIUM BICARBONATE 75 MEQ in NS 0.45% 1,000 ML IV SCH ×2 (11:29→21:45)
--- NOTE | 2018-09-16 14:10 | IPN ---
DATE: 09/16/2018 Mr. Early is seen this morning on his bedside. He is feeling about the same and reports that he is going to the operating room (OR) again for debridement of his right foot wound. He denies any dyspnea, chest pain, nausea or vomiting. He has acute renal failure and has been diuresing very well without any diuretic use. The patient has no uremic symptoms. PHYSICAL EXAMINATION: Temperature 98.2 degrees Fahrenheit, heart rate 84 per minute and respiratory rate 18 per minute. Blood pressure 160/80 mmHg and oxygen saturation 90% on room air. Intake and output records from yesterday showed total intake 1370 and output 2900. Today so far his intake is 600 and output 1700. His neck veins are mildly distended. His heart sounds are regular and lungs sound clear to auscultation. Abdomen is soft, obese and nontender and bowel sounds are normal. Extremities have no cyanosis or clubbing. Right foot is wrapped in dressing. Neurologically, he is awake, alert and oriented x3. Today's labs show white blood count (WBC) count 9.7, hemoglobin 13.4 and hematocrit 39.8. Platelets 316. Sodium 132, potassium 5.5, CO2 17, BUN 91 and creatinine 5.16. Calcium is 7.7 and phosphorus 6.4. PROBLEMS; 1. Acute renal failure. The patient has slight improvement in creatinine since yesterday. His urine output has been significantly negative balance. I am going to start him on IV sodium bicarbonate drip due to metabolic acidosis, mild hyperkalemia and negative fluid balance. He is going to be nothing by mouth after breakfast for operating room (OR) later today. Will keep him on IV fluid for at least 24 hours and recheck his renal function tomorrow morning. 2. Hyperkalemia. Most likely this is related to necrotic tissue in his right foot. He is going to have debridement done today. He also has acute renal failure, though he has very good urine output. I am going to start sodium bicarbonate drip, which will help to correct his hyperkalemia and metabolic acidosis. 3. Metabolic acidosis related to acute renal failure and likely to correct with IV sodium bicarbonate drip, which is being started today. Renal profile will be checked again tomorrow morning. 4. Diabetic foot ulcer on right foot. The patient remains on antibiotics and is going to have further debridement done later today.
[2018-09-16] MEDS ORDERED: CALCIUM GLUCONATE 1,000 MG in D5W MINI-BAG PLUS 100 ML IV ONE (15:00)
[2018-09-16] MEDS ORDERED: PATIROMER SORBITEX CALCIUM 8.4 GM POWDER PACKET (VELTASSA) PO ONE (15:00)
[2018-09-16] MEDS ORDERED: LIDOCAINE 1% MDV 20ML VIAL As Ordered ONE (16:31)
[2018-09-16] MEDS ORDERED: BUPIVACAINE HCL 0.5% 10 ML VIAL As Ordered ONE (16:31)
[2018-09-16] MEDS ORDERED: PROPOFOL 200 MG/20 ML VIAL As Ordered ONE (16:59)
[2018-09-16] MEDS ORDERED: LIDOCAINE 2% INJ 100 MG/5 ML SDV (FOR ANES.) As Ordered ONE (16:59)
[2018-09-16] MEDS ORDERED: LABETALOL HCL 100 MG/20 ML VIAL As Ordered ONE (16:59)
[2018-09-16] MEDS ORDERED: MIDAZOLAM INJ 2 MG/2 ML VIAL (J2250) As Ordered ONE (16:59)
[2018-09-16] MEDS ORDERED: fentaNYL 100 MCG/2 ML INJECTION (J3010) As Ordered ONE (16:59)
[2018-09-16] MEDS ORDERED: ZOSYN 2.25 GM VIAL (J2543) As Ordered ONE (17:00)
[2018-09-16] MEDS ORDERED: PERCOCET 5MG/325MG TAB PO PRN (18:00)
[2018-09-16] MEDS ORDERED: fentaNYL 100 MCG/2 ML INJECTION (J3010) IV PRN (18:00)
[2018-09-16] MEDS ORDERED: LR 1,000 ML IV SCH (18:00)
[2018-09-16] MEDS ORDERED: ONDANSETRON 4MG/2ML VIAL (J2405) IV PRN (18:00)
[2018-09-16] MEDS ORDERED: NS 0.45% 1,000 ML IV SCH (18:15)
[2018-09-17] VITALS (7 sets, daily range): BP systolic 132–144; BP diastolic 70–90
[2018-09-17] MEDS: PIPERACILLIN/TAZOBACTAM SOD 2.25 GM in D5W MINI-BAG PLUS 50 ML IV SCH ×2 (05:29→17:40)
[2018-09-17] MEDS: SLF 3 ML SYR IV SCH ×3 (05:29→20:30)
[2018-09-17] MEDS: PERCOCET 5MG/325MG TAB PO PRN ×3 (06:09→22:14)
[2018-09-17 06:22] LABS: BASO % 0.4 % (0.0-1.0); EOS # 0.1 10^3/uL (0.0-0.50); EOS % 0.9 % (0.0-3.0); HEMATOCRIT 38.6 % (42.0-52.0); HEMOGLOBIN 12.8 g/dl (13.5-17.5); LYMPH % 9.5 % (24.0-44.0); MEAN CORPUSCULAR HEMOGLOBIN 30.8 pg (27.0-33.0); MEAN CORPUSCULAR HGB CONC 33.2 g/dl (32.0-36.5); MEAN CORPUSCULAR VOLUME 92.8 fl (80.0-96.0); MONO # 0.8 10^3/uL (0.0-0.8); MONO % 7.6 % (0.0-5.0); NEUTROPHILS # 8.5 10^3/uL (1.8-7.7); NEUTROPHILS % 81.2 % (36.0-66.0); PLATELET COUNT, AUTOMATED 333 10^3/uL (150-450); RED BLOOD COUNT 4.16 10^6/uL (4.30-6.10); WHITE BLOOD COUNT 10.5 10^3/uL (4.0-10.0)
[2018-09-17 06:43] LABS: ERYTHROCYTE SEDIMENTATION RATE 107 mm/hr (0-20)
[2018-09-17 06:53] LABS: ALBUMIN 2.1 GM/DL (3.2-5.2); C REACTIVE PROTEIN QUANTITATIV 4.5 MG/DL (0.00-0.30); CALCIUM LEVEL 8.1 MG/DL (8.8-10.2); CREATININE FOR GFR 5.13 MG/DL (0.70-1.30); GLOMERULAR FILTRATION RATE 12.3 (>49); PHOSPHORUS LEVEL 6.5 MG/DL (2.5-4.9)
[2018-09-17] MEDS: HumaLOG INSULIN (NovoLOG) PER UNIT SC SCH ×4 (08:09→20:31)
[2018-09-17] MEDS: METOPROLOL TART 25 MG TABLET PO SCH ×2 (08:10→20:32)
[2018-09-17] MEDS: LEVEMIR (INSULIN DETEMIR) 1 UNITS/0.01ML SC SCH ×2 (08:10→20:30)
[2018-09-17] MEDS: amLODIPine 10 MG TAB PO SCH (08:10)
[2018-09-17] MEDS: HEPARIN SOD (PORCINE) 5000 UNITS/ML VIAL SQ SCH ×2 (08:11→20:30)
--- NOTE | 2018-09-17 08:31 | RO ---
DATE OF PROCEDURE: 09/16/2018 PREOPERATIVE DIAGNOSIS: Right foot ulceration infection. POSTOPERATIVE DIAGNOSIS: Right foot ulceration infection. PROCEDURE: Right foot incision and drainage and debridement. SURGEON: Dr. Macho Suarez DPM BLOCKER HAND: None. ANESTHESIA: Monitor anesthesia care. Preoperative injection of 20 mL of a 1:1 mixture of 1% lidocaine plan and 0.5% Marcaine plain. ESTIMATED BLOOD LOSS: 15 mL. TOURNIQUET: None. COMPLICATIONS: None. CONDITION: Stable. Deo Early is a 63-year-old male who was admitted due to right foot infection. He underwent incision and drainage last week. He has been continued on antibiotics. His wound care was done today for a further debridement. Patient, site, and side were identified and marked in the preoperative area. Consent was reviewed and risks, complications and alternatives of the procedure and all questions were answered. PROCEDURE: The patient was brought to the operating room and placed on operating room table in supine position. Monitored anesthesia care (MAC) was delivered by the anesthesia team. Preoperative injection of 20 mL of 1:1 mixture of 1% lidocaine plain and 0.5% Marcaine plain were injected to the right foot. The foot was prepped and draped in a normal sterile fashion. No tourniquet was used during the procedure. There was noted to be ulcerations at the tip of the right hallux, the plantar arch and at the dorsal lateral foot. The distal hallux ulceration was debrided with a #15 blade. There was some fibrous tissue underneath. Following this the plantar wound was debrided from the necrotic tissue on the plantar arch. There was some purulence noted tracking along the plantar fascia. The plantar fascia appeared healthy in appearance. There was some non-viable fat tissue which was debrided. The site was irrigated with normal saline. Next attention was paid to the dorsal lateral foot necrotic tissue and gangrenous tissue was at the periphery of the wound. These were debrided with a #15 blade. There was some necrotic tissue fat and muscle along the lateral foot which was debrided again with a #15 blade. Site was irrigated with normal saline. Sterile dressings were applied. Patient was brought to postanesthesia care unit with vital signs stable and neurovascular status intact. She will be readmitted for continued antibiotics and wound care. We will follow.
--- NOTE | 2018-09-17 11:40 | IPN ---
DATE: 09/17/2018 Mr. Early is seen this morning on his bedside. He underwent debridement of his right foot wound yesterday and is feeling well. He remains on IV fluid which was started yesterday due to negative fluid balance with massive urine output due to diuretic phase of ATN. The patient denies any nausea, vomiting, dyspnea or chest pain. PHYSICAL EXAMINATION: Temperature 97 degrees Fahrenheit, heart rate 72 per minute and respiratory rate 16 per minute. Blood pressure 140/90 mmHg and oxygen saturation 94%. He is not using any oxygen. Input and output records from yesterday are again negative by 2.6 liters with total intake of 1215 and output 3815. Today so far he is almost 2.3 liters negative. His head is atraumatic. Neck is supple and JVD is only mildly elevated. There is no oral thrush or ulcers. Heart: Sounds are regular and lungs sound clear to auscultation. Abdomen: Obese, soft and nontender and bowel sounds are normal. Extremities have no cyanosis or clubbing. Right foot is wrapped in dressing. Neurologically he is awake, alert and oriented times three. Today's labs show WBC count 10.5, hemoglobin 12.8 and hematocrit 38.6. Sodium 135, potassium 5.0, CO2 23, BUN 93 and creatinine 5.13. Calcium is 8.1 and phosphorus 6.5. PROBLEMS: 1. Acute renal failure. No significant change in kidney function. Most likely this is related to surgery again in OR yesterday. He has negative fluid balance with urine output more than 3 liters yesterday. We will continue with IV fluids for now and the patient is also being encouraged for increased oral intake. 2. Hyperkalemia. He did have mild hyperkalemia yesterday which was probably related to metabolic acidosis and acute renal failure. It has already improved. We are continuing with sodium bicarbonate infusion for now. 3. Right foot diabetic ulcer. The patient had another debridement done yesterday. He is going to need an angiogram at some point when his kidney function starts improving.
[2018-09-17] MEDS: SODIUM BICARBONATE 75 MEQ in NS 0.45% 1,000 ML IV SCH (13:18)
[2018-09-17] MEDS: SANTYL OINT 30GM TOP SCH (15:06)
[2018-09-18] VITALS (7 sets, daily range): BP systolic 138–161; BP diastolic 48–81
[2018-09-18] MEDS: SODIUM BICARBONATE 75 MEQ in NS 0.45% 1,000 ML IV SCH ×2 (03:28→08:06)
[2018-09-18] MEDS: PIPERACILLIN/TAZOBACTAM SOD 2.25 GM in D5W MINI-BAG PLUS 50 ML IV SCH ×2 (05:00→18:20)
[2018-09-18] MEDS: SLF 3 ML SYR IV SCH ×3 (05:26→22:00)
[2018-09-18 06:55] LABS: BASO % 0.4 % (0.0-1.0); EOS # 0.1 10^3/uL (0.0-0.50); EOS % 1.3 % (0.0-3.0); HEMOGLOBIN 12.7 g/dl (13.5-17.5); LYMPH # 0.9 10^3/uL (1.5-4.5); LYMPH % 8.4 % (24.0-44.0); MEAN CORPUSCULAR HEMOGLOBIN 31.1 pg (27.0-33.0); MEAN CORPUSCULAR HGB CONC 33.4 g/dl (32.0-36.5); MEAN CORPUSCULAR VOLUME 93.1 fl (80.0-96.0); MONO # 0.8 10^3/uL (0.0-0.8); MONO % 7.2 % (0.0-5.0); NEUTROPHILS # 8.7 10^3/uL (1.8-7.7); NEUTROPHILS % 82.3 % (36.0-66.0); PLATELET COUNT, AUTOMATED 304 10^3/uL (150-450); RED BLOOD COUNT 4.08 10^6/uL (4.30-6.10); WHITE BLOOD COUNT 10.6 10^3/uL (4.0-10.0)
--- NOTE | 2018-09-18 07:19 | IPNPDOC ---
Date Seen The patient was seen on 09/17/18. Progress Note SUBJECTIVE: s/p debridement in OR with Dr. Suarez 09/16/18. wound cx: coag neg staph and grp B strep sensitive to Tetracycline. on iv zosyn, but defer to ID to change abx. wbc 10 afebrile. OBJECTIVE VITALS: PLS SEE BELOW General Exam: Positive: Alert, Cooperative, No Acute Distress ENT Exam: Positive: Atraumatic, Mucous membr. moist/pink Neck Exam: Negative: JVD Chest Exam: Positive: Clear to auscultation, Normal air movement Heart Exam: Positive: Rate Normal, Normal S2 Abdomen Exam: Positive: Soft; Negative: Tenderness Extremity Exam: Positive: Tenderness Skin Exam: Positive: Other skin issue (wound measures 9.0 cm x 9.5 cm on darwin dorsum of the right foot. There was an area of necrosis on the medial aspect of the wound. There is an area of Necrosis on the planter aspect of the foot also. The extensor tendons are exposed. ) Psych Exam: Positive: Oriented x 3 Assessment /Plan Assessment Sepsis 2/2 Right Diabetic neuropathic Foot Infection Blood cultures negative MRI Foot with no evidence of osteomyelitis Patient will need vascular evaluation for the foot as may need transmetatarsal amputation if it cannot be salvaged. s/p I&D on 09/09/18 will need further visit to OR once more stable. Cultures growing multiple organisms consulted ID On zosyn Evaluate for Peripheral vascular disease will have to consult vascular for evaluation once patient's renal function imp roves. Acute Kidney Injury Likely 2/2 relative hypotension--Patient was noted to have a SBP of 205 early yesterday morning prior to procedure, and after receiving his medications for the AM, and Anesthesia (Propofol, Versed) for his procedure his BP was noted to be 87/51 at noon post-operatively and being on lisinopril. Renal U/S with no obstruction creatinine up a little bit today but seems to be plateauing. New diagnosis of diabetes HgbA1c noted to be 11% We are currently up-titrating the patient's Insulin dosing Diabetic teaching ordered We will cont to monitor blood glucose levels Morbid obesity with possibly CHELO As seen with hypoxia during sleep Nocturnal oximetry also suggests underlying CHELO will need sleep study after discharge Newly diagnosed Hypertension Cont amlodipine. BP not well controlled will start metoprolol. Deep venous thrombosis (DVT) prophylaxis VS, I&O, [facility] Vital Signs/I&O Vital Signs Date Time Temp Pulse Resp B/P (MAP) Pulse Ox O2 Delivery O2 Flow Rate FiO2 09/17/18 06:09 20 2.0 09/17/18 06:00 97.0 76 139/82 (101) 94 09/12/18 19:00 Room Air I&O- Last 24 Hours up to 6 AM 09/17/18 06:00 Intake Total 1335 ml Output Total 4815 ml Balance -3480 ml Laboratory Data 24H LABS Laboratory Tests 2 09/16/18 08:09: Immature Granulocyte % (Auto) 0.4, Neutrophils (%) (Auto) 81.1H, Lymphocytes (%) (Auto) 10.5L, Monocytes (%) (Auto) 6.7H, Eosinophils (%) (Auto) 0.8, Basophils (%) (Auto) 0.5, Immature Granulocyte # (Auto) 0.0, Neutrophils # (Auto) 8.1H, Lymphocytes # (Auto) 1.0L, Monocytes # (Auto) 0.7, Eosinophils # (Auto) 0.1, Basophils # (Auto) 0.1, Nucleated Red Blood Cells % (auto) 0.0, Platelet Estimate NORMAL, Blood Urea Nitrogen 91H, Creatinine 5.16H, Sodium Level 132L, Potassium Level 5.5H, Chloride Level 104, Carbon Dioxide Level 17L, Anion Gap 11, Glomerular Filtration Rate 12.2L, Calcium Level 7.7L, Phosphorus Level 6.4H, Albumin 2.0L 09/16/18 12:07: Bedside Glucose (Misc Panel) 177H 09/16/18 17:49: Bedside Glucose (Misc Panel) 153H 09/16/18 20:33: Bedside Glucose (Misc Panel) 247H 09/17/18 06:03: Immature Granulocyte % (Auto) 0.4, White Blood Count 10.5H, Red Blood Count 4. 16L, Hemoglobin 12.8L, Hematocrit 38.6L, Mean Corpuscular Volume 92.8, Mean Corpuscular Hemoglobin 30.8, Mean Corpuscular Hemoglobin Concent 33.2, Red Cell Distribution Width 11.8, Platelet Count 333, Neutrophils (%) (Auto) 81.2H, Lymphocytes (%) (Auto) 9.5L, Monocytes (%) (Auto) 7.6H, Eosinophils (%) (Auto) 0.9, Basophils (%) (Auto) 0.4, Neutrophils # (Auto) 8.5H, Lymphocytes # (Auto) 1.0L, Monocytes # (Auto) 0.8, Eosinophils # (Auto) 0.1, Basophils # (Auto) 0.0, Nucleated Red Blood Cells % (auto) 0.0, Erythrocyte Sedimentation Rate 107H, Blood Urea Nitrogen 93H, Creatinine 5.13H, Sodium Level 135L, Potassium Level 5.0, Chloride Level 104, Carbon Dioxide Level 23, Anion Gap 8, Glomerular Fi ltration Rate 12.3L, Calcium Level 8.1L, Phosphorus Level 6.5H, C-Reactive Protein, Quantitative 4.50H, Albumin 2.1L CBC/BMP Laboratory Tests 09/16/18 08:09 Red Blood Count 4.28 L, Mean Corpuscular Volume 93.0, Mean Corpuscular Hemoglobin 31.3, Mean Corpuscular Hemoglobin Concent 33.7, Red Cell Distribution Width 11.8, Anion Gap 11 09/16/18 15:08 09/16/18 20:36 09/17/18 06:03 Red Blood Count 4.16 L, Mean Corpuscular Volume 92.8, Mean Corpuscular Hemoglo bin 30.8, Mean Corpuscular Hemoglobin Concent 33.2, Red Cell Distribution Width 11.8, Anion Gap 8, Neutrophils (%) (Auto) 81.2 H, Lymphocytes (%) (Auto) 9.5 L, Monocytes (%) (Auto) 7.6 H, Eosinophils (%) (Auto) 0.9, Basophils (%) (Auto) 0.4, Neutrophils # (Auto) 8.5 H, Lymphocytes # (Auto) 1.0 L, Monocytes # (Auto) 0.8, Eosinophils # (Auto) 0.1, Basophils # (Auto) 0.0 Microbiology Microbiology 09/07/18 Blood Culture - Final, Complete NO GROWTH AFTER 5 DAYS 09/07/18 Blood Culture - Final, Complete NO GROWTH AFTER 5 DAYS 09/09/18 Gram Stain - Final, Complete 09/09/18 Wound Culture - Final, Complete Strep Agalactiae Group B Staphylococcus Sp Coag Neg 09/09/18 Anaerobic Culture - Final, Complete 09/07/18 Gram Stain - Final, Complete 09/07/18 Wound Culture - Final, Complete Acinetobacter Baumannii Comple Staphylococcus Sp Coag Neg Corynebacterium Species Strep Agalactiae Group B EDEN HADDAD MD Sep 17, 2018 07:06
--- NOTE | 2018-09-18 07:23 | IPNPDOC ---
Date Seen The patient was seen on 09/18/18. Progress Note SUBJECTIVE: Pt seen and examined at the bedside. Chart has been reviewed. Overnight, pt c/o increased pain in the right foot with standing and ambulation. no fever. s/p debridement in OR with Dr. Suarez 09/16/18. wound cx: coag neg staph and grp B strep sensitive to Tetracycline. on iv zosyn, but per ID no changes on iv zosyn for now. OBJECTIVE VITALS: PLS SEE BELOW General Exam: Positive: Alert, Cooperative, No Acute Distress ENT Exam: Positive: Atraumatic, Mucous membr. moist/pink Neck Exam: Negative: JVD Chest Exam: Positive: Clear to auscultation, Normal air movement Heart Exam: Positive: Rate Normal, Normal S2 Abdomen Exam: Positive: Soft; Negative: Tenderness Extremity Exam: Positive: Tenderness Skin Exam: Positive: Other skin issue (wound measures 9.0 cm x 9.5 cm on darwin dorsum of the right foot. There was an area of necrosis on the medial aspect of the wound. There is an area of Necrosis on the planter aspect of the foot also. The extensor tendons are exposed. ) Psych Exam: Positive: Oriented x 3 Assessment /Plan Assessment Sepsis 2/2 Right Diabetic neuropathic Foot Infection Blood cultures negative MRI Foot with no evidence of osteomyelitis Patient will need vascular evaluation for the foot as may need transmetatarsal amputation if it cannot be salvaged. s/p I&D on 09/09/18 will need further visit to OR once more stable. Cultures growing multiple organisms consulted ID On zosyn Evaluate for Peripheral vascular disease will have to consult vascular for evaluation once patient's renal function improves. Acute Kidney Injury Likely 2/2 relative hypotension--Patient was noted to have a SBP of 205 early yesterday morning prior to procedure, and after receiving his medications for the AM, and Anesthesia (Propofol, Versed) for his procedure his BP was noted to be 87/51 at noon post-operatively and being on lisinopril. Renal U/S with no obstruction creatinine up a little bit today but seems to be plateauing. New diagnosis of diabetes HgbA1c noted to be 11% We are currently up-titrating the patient's Insulin dosing Diabetic teaching ordered We will cont to monitor blood glucose levels Morbid obesity with possibly CHELO As seen with hypoxia during sleep Nocturnal oximetry also suggests underlying CHELO will need sleep study after discharge Newly diagnosed Hypertension Cont amlodipine. BP not well controlled will start metoprolol. Deep venous thrombosis (DVT) prophylaxis VS, I&O, 24H, [facility] Vital Signs/I&O Vital Signs Date Time Temp Pulse Resp B/P (MAP) Pulse Ox O2 Delivery O2 Flow Rate FiO2 09/18/18 06:00 97.5 85 19 143/79 (100) 98 2.0 09/12/18 19:00 Room Air I&O- Last 24 Hours up to 6 AM 09/18/18 06:00 Intake Total 3590 ml Output Total 4400 ml Balance -810 ml Laboratory Data 24H LABS Laboratory Tests 2 09/17/18 11:56: Bedside Glucose (Misc Panel) 220H 09/17/18 16:45: Bedside Glucose (Misc Panel) 202H 09/17/18 20:02: Bedside Glucose (Misc Panel) 250H 09/18/18 06:23: Immature Granulocyte % (Auto) 0.4, White Blood Count 10.6H, Red Blood Count 4.08L, Hemoglobin 12.7L, Hematocrit 38.0L, Mean Corpuscular Volume 93.1, Mean Corpuscular Hemoglobin 31.1, Mean Corpuscular Hemoglobin Concent 33.4, Red Cell Distribution Width 11.9, Platelet Count 304, Neutrophils (%) (Auto) 82.3H, Lymphocytes (%) (Auto) 8.4L, Monocytes (%) (Auto) 7.2H, Eosinophils (%) (Auto) 1.3, Basophils (%) (Auto) 0.4, Neutrophils # (Auto) 8.7H, Lymphocytes # (Auto) 0.9L, Monocytes # (Auto) 0.8, Eosinophils # (Auto) 0.1, Basophils # (Auto) 0.0, Nucleated Red Blood Cells % (auto) 0.0 CBC/BMP Laboratory Tests 09/18/18 06:23 Red Blood Count 4.08 L, Mean Corpuscular Volume 93.1, Mean Corpuscular Hemoglobin 31.1, Mean Corpuscular Hemoglobin Concent 33.4, Red Cell Distribution Width 11.9, Neutrophils (%) (Auto) 82.3 H, Lymphocytes (%) (Auto) 8.4 L, Monocytes (%) (Auto) 7.2 H, Eosinophils (%) (Auto) 1.3, Basophils (%) (Auto) 0.4, Neutrophils # (Auto) 8.7 H, Lymphocytes # (Auto) 0.9 L, Monocytes # (Auto) 0.8, Eosinophils # (Auto) 0.1, Basophils # (Auto) 0.0 Microbiology Microbiology 09/09/18 Gram Stain - Final, Complete 09/09/18 Wound Culture - Final, Complete Strep Agalactiae Group B Staphylococcus Sp Coag Neg 09/09/18 Anaerobic Culture - Final, Complete EDEN HADDAD MD Sep 18, 2018 07:20
[2018-09-18 07:25] LABS: CREATININE FOR GFR 4.92 MG/DL (0.70-1.30); GLOMERULAR FILTRATION RATE 12.9 (>49)
[2018-09-18] MEDS: METOPROLOL TART 25 MG TABLET PO SCH ×2 (08:04→22:44)
[2018-09-18] MEDS: amLODIPine 10 MG TAB PO SCH (08:04)
[2018-09-18] MEDS: HEPARIN SOD (PORCINE) 5000 UNITS/ML VIAL SQ SCH (08:05)
[2018-09-18] MEDS: HumaLOG INSULIN (NovoLOG) PER UNIT SC SCH ×4 (08:05→21:00)
[2018-09-18] MEDS: LEVEMIR (INSULIN DETEMIR) 1 UNITS/0.01ML SC SCH ×2 (08:05→22:45)
--- NOTE | 2018-09-18 11:43 | IPN ---
DATE OF VISIT: 09/18/2018 Mr. Early is seen this morning on his bedside. He is feeling well and denies any nausea, vomiting, dyspnea or chest pain. He has a right foot diabetic ulcer for which he had a debridement done again a couple of days ago. He remains on IV antibiotics. We had also started IV fluid due to significant spontaneous diuresis. PHYSICAL EXAMINATION: Temperature 97.7 degrees Fahrenheit, heart rate 96 per minute, respiratory rate 18 per minute. Blood pressure 138/55 mmHg and oxygen saturation 92%. His head is atraumatic. Neck veins are still about 6 cm above sternal angle. His heart sounds are regular and lungs clear to auscultation. Abdomen is soft, obese and nontender and bowel sounds are normal. Extremities have no cyanosis or clubbing. Right foot is wrapped in dressing. Neurologically he is awake, alert and oriented times three. Today's labs show WBC count 10.6, hemoglobin 10.7 and hematocrit 38.0. Sodium 135, potassium 5.0, CO2 25, BUN 82 and creatinine 4.92. Glucose 176 and calcium 8.0. PROBLEMS: 1. Acute renal failure. Kidney function is slowly improving. He has good urine output and will continue to monitor his kidney function. There is no emergent indication for dialysis. He has been diuresing very well and he was started on IV fluid couple of days ago. I am going to stop the IV fluid today and encouraged for oral intake. We will continue to monitor his urine output. 2. Hyperkalemia. The patient has borderline hyperkalemia for the last couple of days. He is not on any SHERRY inhibitor, angiotensin receptor geremias or potassium-sparing diuretic. We will continue to monitor his electrolytes closely. At present there is no emergent indication for intervention.
[2018-09-18] MEDS: SANTYL OINT 30GM TOP SCH (11:54)
[2018-09-18] MEDS: PERCOCET 5MG/325MG TAB PO PRN (11:55)
--- NOTE | 2018-09-18 12:03 | IPN ---
DATE OF SERVICE: 09/18/2018 Patient seen and examined at bedside. Denies overnight complaints. States some pain in his foot while working with therapy but not sore when he is off his feet. Vitals are reviewed. He has remained afebrile. Labs are reviewed. White blood cell count is 10.6. Creatinine is 4.92. Most recent CRP was 4.5 and most recent ESR was 107. Lower extremity examination: There remains some necrotic and dysvascular tissue surrounding the dorsolateral wound. Distal hallux wound is improved in nature. There is some necrotic tissue at the plantar surface with exposed fascia of the plantar ulcer. ASSESSMENT: 63-year-old, diabetic male status post incision and drainage with persisting ulceration infection. PLAN: Continue antibiotics per infectious disease. Continue current wound care. Once kidney function is improved, the patient should have arterial imaging by Dr. Elizabeth. There appears to be some vascular disease impairing wound healing and if patient is ultimately going to need further amputation, ideally vascular status would be optimized prior to this. Will follow.
--- NOTE | 2018-09-18 12:37 | CR.PDOC ---
General Date of Consultation: Sep 18, 2018 Consultation CONSULTATION REPORT FOR: Dr Robb REASON FOR CONSULTATION: LLE wound ATTENDING: Dr. Elizabeth Nephrology Dr Meehan Podiatry Dr Suarez. HPI: This is a 63-year-old who has apparently not had primary care for the last 40 years, who presented 09/07/18 with chief complaint of right foot wound that had been worsening for the last several days. Patient had reported that after he took off his sock, he noticed red blood spots on his sock. He then noticed a wound on his right lateral foot. He was seen in the ED and admitted with sepsis and Rt foot wound. The pt was seen by wound care and Podiatry S/P debridement of his wounds 09/10 and 09/17/18. The pt is followed as per ID, Dr Celis. Nephrology consulted for SHANITA with SCr 4.92 currently. Vascular surgery is consulted for further evaluation of RLE wound. The pt denies pain at this time. Denies any fevers, chills, Headache, Chest Pain, Shortness of breath, cough, palpitations, abdominal pain, N/V/D or changes in bowel or bladder habits. PMHx: DM HTN M Obesity BMI 49.2 Possible CHELO TTE 09/12/18 Nml EF, Gr2 DD. PSHX: debridement RLE 09/10 and 09/17/18. 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 Children: none ROS: As noted in HPI, otherwise 11pt ROS of systems reviewed and unremarkable. PE: GEN: 63yoM, appears stated age. No acute distress. Alert and oriented x 3. Pleasant, interactive. HEENT: Normocephalic, atraumatic. Sclera are nonicteric. Conjunctiva without injection. No facial asymmetry. Moist mucous membranes. CHEST: Regular rate and rhythm, +S1, +S2 LUNGS: Clear to auscultation bilaterally. No wheezes, rales, or rhonchi. Chanel athing appears symmetric and easy. ABD: Round, soft, non-tender, non-distended. +Bowel sounds throughout. No rebound or guarding. EXT: The rt foot is wrapped with dressing, pulses are not palpable but are obtained as per nursing with doppler. The pt is s/p debridement 09/17/18 of wound dorsolateral and plantar aspect of foot. There is no erythema extending beyond previously demarcated areas. There is black discoloration of Rt toes 3-5. NEURO: Alert and oriented x 3. No focal deficits appreciated. Foot XR Lateral soft tissue ulcer in the midfoot with no radiographic evidence of osteomyelitis. No acute fracture or dislocation. Electronically Signed by Jeffery Mcnally MD 09/08/2018 09:16 A Foot MRI Noncontrast study shows the lateral forefoot soft tissue irregularity and edema. No abscess or evidence of osteomyelitis seen. Electronically Signed by Greyson Anaya MD 09/09/2018 11:27 A A&P: This is a 63-year-old who has not had primary care for the last 40 years, who presented 09/07/18 with chief complaint of right foot wound that had been worsening for the last several days. Patient reported that after he took off his sock, he noticed red blood spots on his sock. He then noticed a wound on his right lateral foot. He was seen in the ED and admitted with sepsis and Rt foot wound. The pt was seen by wound care and Podiatry with debridement 09/10 and 09/17/18. The pt is followed as per ID, Dr Celis. Nephrology consulted for SHANITA with SCr 4.92 currently. Vascular surgery is consulted for further evaluation of RLE wound. 1. Right Diabetic Foot Infection/wound with sepsis. Pt is afebrile. WBC 10.6. ESR 107/CRP 4.50. Blood culture x 2 negative MRI Foot with no evidence of osteomyelitis Cultures growing multiple organisms, Dr Celis ID following. On Zosyn IV renally dosed. Continue with wound care. The pt is reviewed and examined by Dr Elizabeth, vascular surgery. Plan for RLE arterial U/S today to further evaluate. Recommend IV Heparin gtt, Dr Robb aware. Possibly consider RLE angiogram 09/19/18. Monitor renal function in AM. 2. SHANITA Possibly related to hypotension after procedure 09/17/18, BP was noted to be 87/51 post-operatively and being on lisinopril. ACEI on hold. S/P IVF as per nephrology. Renal U/S with no obstruction SCr 4.92. Nephrology following. 3. DM HgbA1c noted to be 11.0 09/07/18 Levemir/SSI. BS 178-250. 4. Morbid obesity with possible CHELO Nocturnal oximetry also suggests underlying CHELO Plan is for sleep study after discharge 5. HTN. amlodipine/metoprolol. BP 138/55. Thank you for your consultation. We will continue to follow along with you. Vital Signs/I&O Vital Signs Date Time Temp Pulse Resp B/P (MAP) Pulse Ox O2 Delivery O2 Flow Rate FiO2 09/18/18 11:55 18 09/18/18 10:30 97.7 96 138/55 (82) 90 09/18/18 06:00 2.0 09/12/18 19:00 Room Air I&O- Last 24 Hours up to 6 AM 09/18/18 06:00 Intake Total 3590 ml Output Total 4400 ml Balance -810 ml Laboratory Data Labs 24H Laboratory Tests 2 09/17/18 16:45: Bedside Glucose (Misc Panel) 202H 09/17/18 20:02: Bedside Glucose (Misc Panel) 250H 09/18/18 06:23: Immature Granulocyte % (Auto) 0.4, White Blood Count 10.6H, Red Blood Count 4.08L, Hemoglobin 12.7L, Hematocrit 38.0L, Mean Corpuscular Volume 93.1, Mean Corpuscular Hemoglobin 31.1, Mean Corpuscular Hemoglobin Concent 33.4, Red Cell Distribution Width 11.9, Platelet Count 304, Neutrophils (%) (Auto) 82.3H, Lymphocytes (%) (Auto) 8.4L, Monocytes (%) (Auto) 7.2H, Eosinophils (%) (Auto) 1.3, Basophils (%) (Auto) 0.4, Neutrophils # (Auto) 8.7H, Lymphocytes # (Auto) 0.9L, Monocytes # (Auto) 0.8, Eosinophils # (Auto) 0.1, Basophils # (Auto) 0.0, Nucleated Red Blood Cells % (auto) 0.0, Anion Gap 7L, Glomerular Filtration Rate 12.9L, Blood Urea Nitrogen 82H, Creatinine 4.92H, Sodium Level 135L, Potassium Level 5.0, Chloride Level 103, Carbon Dioxide Level 25, Calcium Level 8.0L 09/18/18 11:30: Bedside Glucose (Misc Panel) 178H CBC/BMP Laboratory Tests 09/18/18 06:23 Red Blood Count 4.08 L, Mean Corpuscular Volume 93.1, Mean Corpuscular Hemoglobin 31.1, Mean Corpuscular Hemoglobin Concent 33.4, Red Cell Distribution Width 11.9, Neutrophils (%) (Auto) 82.3 H, Lymphocytes (%) (Auto) 8.4 L, Monocytes (%) (Auto) 7.2 H, Eosinophils (%) (Auto) 1.3, Basophils (%) (Auto) 0.4, Neutrophils # (Auto) 8.7 H, Lymphocytes # (Auto) 0.9 L, Monocytes # (Auto) 0.8, Eosinophils # (Auto) 0.1, Basophils # (Auto) 0.0, Calcium Level 8.0 L Microbiology Microbiology 09/09/18 Gram Stain - Final, Complete 09/09/18 Wound Culture - Final, Complete Strep Agalactiae Group B Staphylococcus Sp Coag Neg 09/09/18 Anaerobic Culture - Final, Complete Allergies Coded Allergies: No Known Allergies (Unverified , 09/10/18) Home Medications No Active Prescriptions or Reported Meds Yeni Yusuf Sep 18, 2018 12:37
[2018-09-18] MEDS ORDERED: HEPARIN SOD (PORCINE) 5000 UNITS/ML VIAL IV ONE (13:00)
[2018-09-18] MEDS: HEPARIN DRIP 25,000 UNITS in APPROPRIATE DILUENT 1 EA IV SCH (13:44)
[2018-09-18] MEDS ORDERED: LIDOCAINE 1% MDV 20ML VIAL As Ordered ONE (15:27)
[2018-09-18] MEDS ORDERED: SODIUM CHLORIDE 0.9% INJ 10 ML SYR IV PRN (17:15)
[2018-09-18] MEDS: SODIUM CHLORIDE 0.9% INJ 10 ML SYR IV SCH (18:05)
--- NOTE | 2018-09-18 18:21 | REP ---
Clinical: Right lower extremity nonhealing wound. Technique: Real time izquierdo scale and color Doppler evaluation of the left lower extremity arterial vasculature using linear high frequency transducer. Findings: The ankle to brachial index of the right lower extremity is decreased at 0.68. There is evidence for calcified atheromatous plaquing throughout the visualized right lower extremity. Color Doppler interrogation demonstrates triphasic wave patterns from the common femoral vein through the popliteal vein and proximal posterior tibial artery. Monophasic wave patterns are then identified through the distal posterior tibial artery and anterior tibial artery. Findings are consistent with element of moderate to significant stenosis through the calf. 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 Electronically Signed by Oswaldo Merritt MD 09/18/2018 06:12 P
[2018-09-18] MEDS ORDERED: NITROGLYCERIN 0.4 MG SUBL TABLET SL STA (18:59)
[2018-09-18] MEDS ORDERED: NITROGLYCERIN 0.4 MG SUBL TABLET SL PRN (19:00)
--- NOTE | 2018-09-18 19:28 | REP ---
Clinical: Chest pain and heaviness. Comparison: None. Findings: Diffuse bilateral interstitial and alveolar infiltrates primarily involving the mid to lower lung zones suggests bronchitis and early multifocal pneumonia. Correlation is recommended. Cardiac silhouette is normal. PICC line extends into the SVC. Skeletal structures are intact. Impression: Diffusely increased markings suggest possible multifocal pneumonia and bronchitis. Differential diagnosis may include pulmonary vascular congestion and interstitial edema. Electronically Signed by Oswaldo Merritt MD 09/18/2018 07:20 P
[2018-09-18 20:25] LABS: CPK CREATINE PHOSPHOKINASE 27 U/L (39-308); MB/CK RELATIVE INDEX 4.81 (< OR =4); TROPONIN I < 0.02 NG/ML (< 0.10)
[2018-09-18] MEDS: HEPARIN SOD (PORCINE) 5000 UNITS/ML VIAL IV PRN (22:44)
[2018-09-19 02:00] VITALS: BP 145/83
[2018-09-19 04:50] LABS: BASO # 0.1 10^3/uL (0.0-0.2); BASO % 0.4 % (0.0-1.0); EOS # 0.2 10^3/uL (0.0-0.50); EOS % 1.5 % (0.0-3.0); HEMOGLOBIN 12.3 g/dl (13.5-17.5); LYMPH # 0.5 10^3/uL (1.5-4.5); LYMPH % 3.7 % (24.0-44.0); MEAN CORPUSCULAR HEMOGLOBIN 30.7 pg (27.0-33.0); MEAN CORPUSCULAR HGB CONC 33.2 g/dl (32.0-36.5); MEAN CORPUSCULAR VOLUME 92.3 fl (80.0-96.0); MONO # 0.8 10^3/uL (0.0-0.8); MONO % 6.2 % (0.0-5.0); NEUTROPHILS # 10.8 10^3/uL (1.8-7.7); NEUTROPHILS % 87.8 % (36.0-66.0); PLATELET COUNT, AUTOMATED 295 10^3/uL (150-450); RED BLOOD COUNT 4.01 10^6/uL (4.30-6.10); WHITE BLOOD COUNT 12.4 10^3/uL (4.0-10.0)
[2018-09-19 05:07] LABS: CALCIUM LEVEL 7.6 MG/DL (8.8-10.2); CREATININE FOR GFR 4.61 MG/DL (0.70-1.30); GLOMERULAR FILTRATION RATE 13.9 (>49)
[2018-09-19] MEDS: HEPARIN DRIP 25,000 UNITS in APPROPRIATE DILUENT 1 EA IV SCH ×3 (05:38→18:55)
[2018-09-19] MEDS: HEPARIN SOD (PORCINE) 5000 UNITS/ML VIAL IV PRN ×2 (05:39→18:53)
[2018-09-19] MEDS: PIPERACILLIN/TAZOBACTAM SOD 2.25 GM in D5W MINI-BAG PLUS 50 ML IV SCH (05:39)
[2018-09-19] MEDS: SODIUM CHLORIDE 0.9% INJ 10 ML SYR IV SCH ×2 (05:40→17:23)
[2018-09-19] MEDS: SLF 3 ML SYR IV SCH ×3 (05:40→21:21)
[2018-09-19 06:00] VITALS: BP 139/72
--- NOTE | 2018-09-19 06:05 | ECGEPIP ---
Stationary ECG Study 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
[2018-09-19] MEDS: amLODIPine 10 MG TAB PO SCH (07:30)
[2018-09-19] MEDS: HumaLOG INSULIN (NovoLOG) PER UNIT SC SCH ×4 (07:39→21:00)
[2018-09-19 08:00] VITALS: BP 136/90
--- NOTE | 2018-09-19 08:22 | REP ---
Portable chest x-ray: Sitting AP view. History: Shortness of breath. Comparison study: September 18, 2018. Findings: A right-sided PICC line is seen unchanged in position. Oxygen delivery tubing is noted. Heart is not enlarged. Interstitial markings remain increased diffusely. Heavier markings and increased density are seen in the right base compared to the left. Developing infiltrate suspected right base. Electronically Signed by Greyson Anaya MD 09/19/2018 01:30 P
[2018-09-19] MEDS: METOPROLOL TART 25 MG TABLET PO SCH ×2 (08:32→21:21)
[2018-09-19] MEDS: LEVEMIR (INSULIN DETEMIR) 1 UNITS/0.01ML SC SCH ×2 (08:33→21:21)
--- NOTE | 2018-09-19 09:33 | IPNPDOC ---
Date Seen The patient was seen on 09/19/18. Progress Note HPI: This is a 63-year-old who has apparently not had primary care for the last 40 years, who presented 09/07/18 with chief complaint of right foot wound that had been worsening for the last several days. Patient had reported that after he took off his sock, he noticed red blood spots on his sock. He then noticed a wound on his right lateral foot. He was seen in the ED and admitted with seps is and Rt foot wound. The pt was seen by wound care and Podiatry S/P debridement of his wounds 09/10 and 09/17/18. The pt is followed as per ID, Dr Celis. Nephrology consulted for SHANITA with SCr 4.61 this AM. Vascular surgery is consulted for further evaluation of RLE wound. The pt denies pain at this time. The pt reported chest heaviness and SOB last PM, this AM Pt states his breathing is comfortable and denies chest heaviness, tightness, pressure. PCXR pending. Denies any fevers, chills, Headache, cough, palpitations, abdominal pain, N/V/D or changes in bowel or bladder habits. PMHx: DM HTN M Obesity BMI 49.2 Possible CHELO TTE 09/12/18 Nml EF, Gr2 DD. PSHX: debridement RLE 09/10 and 09/17/18. PE: GEN: 63yoM, appears stated age. Alert and oriented x 3. Pleasant, interactive. HEENT: Normocephalic, atraumatic. Sclera are nonicteric. Conjunctiva without inj ection. No facial asymmetry. Moist mucous membranes. CHEST: Regular rate and rhythm, +S1, +S2 LUNGS: Good A/E upper [place], insp rales noted bases R>L. No wheezes, or rhonchi. ABD: Round, soft, non-tender, non-distended. +Bowel sounds throughout. No rebound or guarding. EXT: The rt foot is wrapped with dressing, pulses are not palpable but are obtained as per nursing with doppler. The pt is s/p debridement 09/17/18 of wound dorsolateral and plantar aspect of foot. There is no erythema extending beyond previously demarcated areas. There is black discoloration of Rt toes 3-5. NEURO: Alert and oriented x 3. No focal deficits appreciated. Foot XR Lateral soft tissue ulcer in the midfoot with no radiographic evidence of osteomyelitis. No acute fracture or dislocation. Electronically Signed by Jeffery Mcnally MD 09/08/2018 09:16 A Foot MRI Noncontrast study shows the lateral forefoot soft tissue irregularity and edema. No abscess or evidence of osteomyelitis seen. Electronically Signed by Greyson Anaya MD 09/09/2018 11:27 A EKG SINUS TACHYCARDIA POSSIBLE LEFT ATRIAL ENLARGEMENT NONSPECIFIC ST T-WAVE ABNORMALITY RATE FASTER PRWP WITH NEW PROMINENT S WAVES LATERAL PRECORDIAL LEADS SINCE 09/09/18 Electronically Signed On 09-19-2018 6:04:52 EDT by Deysi Noel A&P: This is a 63-year-old who has not had primary care for the last 40 years, who presented 09/07/18 with chief complaint of right foot wound that had been worsening for the last several days. Patient reported that after he took off his sock, he noticed red blood spots on his sock. He then noticed a wound on hi s right lateral foot. He was seen in the ED and admitted with sepsis and Rt foot wound. The pt was seen by wound care and Podiatry with debridement 09/10 and 09/17/18. The pt is followed as per ID, Dr Celis. Nephrology consulted for SHANITA with SCr 4.92 currently. Vascular surgery is consulted for further evaluation of RLE wound. 1. Right Diabetic Foot Infection/wound with sepsis. Pt is afebrile. WBC 12.4 this AM. ESR 107/CRP 4.50. Blood culture x 2 negative MRI Foot with no evidence of osteomyelitis Cultures growing multiple organisms, Dr Celis ID following. On Zosyn IV renally dosed. Continue with wound care. The pt is reviewed and examined by Dr Elizabeth, vascular surgery. RLE arterial U/S 09/18/18 indicated monophasic distal SHROUD LINE TIER/MATTY, mod-signif stenosis calf. Continue IV Heparin gtt. Plan is to discuss with Nephrology proceeding with RLE angiogram. Dr Elizabeth d/w Dr Meehan, plan to hold off on Angio RLE pending SCr trend, possibly consider early next week. 2. SHANITA Possibly related to hypotension after procedure 09/17/18, BP was noted to be 87/51 post-operatively and being on lisinopril. ACEI on hold. S/P IVF as per nephrology. Renal U/S with no obstruction SCr 4.61. Nephrology following. 3. DM HgbA1c noted to be 11.0 09/07/18 Levemir/SSI. BS 178-230. 4. Morbid obesity with possible CHELO Nocturnal oximetry also suggests underlying CHELO Plan is for sleep study after discharge 5. HTN. amlodipine/metoprolol. BP 136/90. 6. Chest heaviness Pt denies any symptoms currently. EKG with no acute changes. CIP/Trop neg. Mgmt as per primary team. 7. SOB. Sat 95% on 2 LNC. Afebrile. VSS. PCXR this Am pending. Mgmt as per primary team. VS, I&O, 24H, Fishbone Vital Signs/I&O Vital Signs Date Time Temp Pulse Resp B/P (MAP) Pulse Ox O2 Delivery O2 Flow Rate FiO2 09/19/18 08:32 95 136/90 09/19/18 08:00 98.2 22 95 2.0 I&O- Last 24 Hours up to 6 AM 09/19/18 06:00 Intake Total 3620 ml Output Total 5300 ml Balance -1680 ml Laboratory Data 24H LABS Laboratory Tests 2 09/18/18 11:30: Bedside Glucose (Misc Panel) 178H 09/18/18 13:02: Activated Partial Thromboplast Time 35.4 09/18/18 17:16: Bedside Glucose (Misc Panel) 206H 09/18/18 19:48: Bedside Glucose (Misc Panel) 230H, Activated Partial Thromboplast Time 53.8H, Total Creatine Kinase 27L, Creatine Kinase MB 1.0, Creatine Kinase MB Relative Index 4.81H, Troponin I < 0.02 09/19/18 04:31: Immature Granulocyte % (Auto) 0.4, White Blood Count 12.4H, Red Blood Count 4.01L, Hemoglobin 12.3L, Hematocrit 37.0L, Mean Corpuscular Volume 92.3, Mean Corpuscular Hemoglobin 30.7, Mean Corpuscular Hemoglobin Concent 33.2, Red Cell Distribution Width 11.8, Platelet Count 295, Neutrophils (%) (Auto) 87.8H, Lymphocytes (%) (Auto) 3.7L, Monocytes (%) (Auto) 6.2H, Eosinophils (%) (Auto) 1.5, Basophils (%) (Auto) 0.4, Neutrophils # (Auto) 10.8H, Lymphocytes # (Auto) 0.5L, Monocytes # (Auto) 0.8, Eosinophils # (Auto) 0.2, Basophils # (Auto) 0.1, Nucleated Red Blood Cells % (auto) 0.0, Activated Partial Thromboplast Time 63.2H, Anion Gap 10, Glomerular Filtration Rate 13.9L, Blood Urea Nitrogen 80H, Creatinine 4.61H, Sodium Level 134L, Potassium Level 5.0, Chloride Level 101, Carbon Dioxide Level 23, Calcium Level 7.6L CBC/BMP Laboratory Tests 09/19/18 04:31 Red Blood Count 4.01 L, Mean Corpuscular Volume 92.3, Mean Corpuscular Hemoglobin 30.7, Mean Corpuscular Hemoglobin Concent 33.2, Red Cell Distribution Width 11.8, Neutrophils (%) (Auto) 87.8 H, Lymphocytes (%) (Auto) 3.7 L, Monocytes (%) (Auto) 6.2 H, Eosinophils (%) (Auto) 1.5, Basophils (%) (Auto) 0.4, Neutrophils # (Auto) 10.8 H, Lymphocytes # (Auto) 0.5 L, Monocytes # (Auto) 0.8, Eosinophils # (Auto) 0.2, Basophils # (Auto) 0.1, Calcium Level 7.6 L Microbiology Microbiology 09/09/18 Gram Stain - Final, Complete 09/09/18 Wound Culture - Final, Complete Strep Agalactiae Group B Staphylococcus Sp Coag Neg 09/09/18 Anaerobic Culture - Final, Complete Yeni Yusuf Sep 19, 2018 09:33
[2018-09-19] MEDS: PERCOCET 5MG/325MG TAB PO PRN (10:19)
[2018-09-19] MEDS: SANTYL OINT 30GM TOP SCH (11:54)
--- NOTE | 2018-09-19 12:34 | IPNPDOC ---
Date Seen The patient was seen on 09/19/18. Progress Note SUBJECTIVE: Pt was started on iv heparin gtt per vascular surgery with plans for stent placement in the right LE to improve wound healing. Pt's pain int he right foot is tolerable with current pain meds. Yesterday, pt c/o chest heaviness and sob. CXR: increased interstitial markings. pt received one dose of nitroglycerin. fluid mgt deferred to Dr. Meehan. He remains afebrile. Pt tolerated his b reakfast this morning, but has no appetite for lunch. sliding scale coverage held. OBJECTIVE VITALS: PLS SEE BELOW General Exam: Positive: Alert, Cooperative, No Acute Distress ENT Exam: Positive: Atraumatic, Mucous membr. moist/pink Neck Exam: Negative: JVD Chest Exam: Positive: Clear to auscultation, Normal air movement Heart Exam: Positive: Rate Normal, Normal S2 Abdomen Exam: Positive: Soft; Negative: Tenderness Extremity Exam: Positive: Tenderness Skin Exam: right foot extensor tendons are exposed. able to move his toes. 2cm plantar tunneled ulcer appears clean with no surrounding erythema or fluctuance. Psych Exam: Positive: Oriented x 3 Assessment /Plan Sepsis 2/2 Right Diabetic neuropathic Foot Infection Blood cultures negative MRI Foot with no evidence of osteomyelitis consulted vascular surgery for stent to improve wound healing. Dr. Suarez s/p debridement x 2. s/p I&D on 09/09/18 will need further visit to OR once more stable. Cultures growing multiple organisms consulted ID On zosyn Acute Kidney Injury Likely 2/2 relative hypotension--Patient was noted to have a SBP of 205prior to procedure, and after receiving his medications for the AM, and Anesthesia (Propofol, Versed) for his procedure his BP was noted to be 87/51 at noon post- operatively and being on lisinopril. Renal U/S with no obstruction creatinine seems to be plateauing. nephrology managing fluid balance. Fluid overload s/p ivfluids managed by nephrology New diagnosis of diabetes HgbA1c noted to be 11% We are currently up-titrating the patient's Insulin dosing Diabetic teaching ordered We will cont to monitor blood glucose levels Morbid obesity with possibly CHELO As seen with hypoxia during sleep Nocturnal oximetry also suggests underlying CHELO will need sleep study after discharge Newly diagnosed Hypertension Cont amlodipine. BP not well controlledinitially. on metoprolol. Deep venous thrombosis (DVT) prophylaxis VS, I&O, 24H, Fishbone Vital Signs/I&O Vital Signs Date Time Temp Pulse Resp B/P (MAP) Pulse Ox O2 Delivery O2 Flow Rate FiO2 09/19/18 10:54 19 09/19/18 08:32 95 136/90 09/19/18 08:00 98.2 95 2.0 I&O- Last 24 Hours up to 6 AM 09/19/18 06:00 Intake Total 3620 ml Output Total 5300 ml Balance -1680 ml Laboratory Data 24H LABS Laboratory Tests 2 09/18/18 13:02: Activated Partial Thromboplast Time 35.4 09/18/18 17:16: Bedside Glucose (Misc Panel) 206H 09/18/18 19:48: Activated Partial Thromboplast Time 53.8H, Bedside Glucose (Misc Panel) 230H, Total Creatine Kinase 27L, Creatine Kinase MB 1.0, Creatine Kinase MB Relative Index 4.81H, Troponin I < 0.02 09/19/18 04:31: Activated Partial Thromboplast Time 63.2H, Immature Granulocyte % (Auto) 0.4, White Blood Count 12.4H, Red Blood Count 4.01L, Hemoglobin 12.3L, Hematocrit 37.0L, Mean Corpuscular Volume 92.3, Mean Corpuscular Hemoglobin 30.7, Mean Corpuscular Hemoglobin Concent 33.2, Red Cell Distribution Width 11.8, Platelet Count 295, Neutrophils (%) (Auto) 87.8H, Lymphocytes (%) (Auto) 3.7L, Monocytes (%) (Auto) 6.2H, Eosinophils (%) (Auto) 1.5, Basophils (%) (Auto) 0.4, Neutrophils # (Auto) 10.8H, Lymphocytes # (Auto) 0.5L, Monocytes # (Auto) 0.8, Eosinophils # (Auto) 0.2, Basophils # (Auto) 0.1, Nucleated Red Blood Cells % (auto) 0.0, Anion Gap 10, Glomerular Filtration Rate 13.9L, Blood Urea Nitrogen 80H, Creatinine 4.61H, Sodium Level 134L, Potassium Level 5.0, Chloride Level 101, Carbon Dioxide Level 23, Calcium Level 7.6L 09/19/18 11:36: Activated Partial Thromboplast Time 68.0H 09/19/18 11:50: Bedside Glucose (Misc Panel) 197H CBC/BMP Laboratory Tests 09/19/18 04:31 Red Blood Count 4.01 L, Mean Corpuscular Volume 92.3, Mean Corpuscular Hemoglobin 30.7, Mean Corpuscular Hemoglobin Concent 33.2, Red Cell Distribution Width 11.8, Neutrophils (%) (Auto) 87.8 H, Lymphocytes (%) (Auto) 3.7 L, Monocytes (%) (Auto) 6.2 H, Eosinophils (%) (Auto) 1.5, Basophils (%) (Auto) 0.4, Neutrophils # (Auto) 10.8 H, Lymphocytes # (Auto) 0.5 L, Monocytes # (Auto) 0.8, Eosinophils # (Auto) 0.2, Basophils # (Auto) 0.1, Calcium Level 7.6 L Microbiology Microbiology 09/09/18 Gram Stain - Final, Complete 09/09/18 Wound Culture - Final, Complete Strep Agalactiae Group B Staphylococcus Sp Coag Neg 09/09/18 Anaerobic Culture - Final, Complete EDEN HADDAD MD Sep 19, 2018 12:26
[2018-09-19 13:16] VITALS: BP 138/86
[2018-09-19 14:00] VITALS: BP 140/80
--- NOTE | 2018-09-19 15:06 | IPN ---
DATE: 09/19/2018 Mr. Early has no complaints today. His shortness of breath has improved. He denies pain in his foot. He has mild chest heaviness. He has no fever, chills, nausea, vomiting or diarrhea. PHYSICAL EXAMINATION: On physical exam, temperature is 97.3, pulse 94, respirations 18, blood pressure 140/80, oxygen sat 90% on room air. Heart: Normal S1, S2. No murmurs. Lungs: Diminished breath sounds at bases but clear. Abdomen: Morbidly obese, soft, nontender. Extremities: +1 pitting edema bilaterally. Right foot extensor tendons are exposed, three of them. He has limited range of motion of toe flexion and extension. He has a an ulcer on the plantar aspect of the foot measuring 2 x 3 cm, which was debrided and has packing. There is no surrounding cellulitis. There is small area of necrosis on the superior aspect of wound but no purulent drainage. IMPRESSION: Diabetic foot infection with gangrene. Culture positive for group B strep. The patient has been on IV antibiotics since 09/07/2018, total of 12 days. Wound has been debrided. He could be switched to oral antibiotic, Augmentin would be a good choice. Acute kidney injury. Renal ultrasound with no obstruction. Nephrology on board. Severe peripheral vascular disease. The patient will be undergoing stenting next week. Appreciate consultation from vascular surgery. Dr. Elizabeth, Dr. Suarez of podiatry who did all the debridement and nephrology. We will start Augmentin, renally dosed and discontinue IV Zosyn.
--- NOTE | 2018-09-19 16:20 | REP ---
Procedure: PICC line insertion with Mary Lou-Lacey The procedure was performed under the direct supervision of Dr. Mcnally. The risks and benefits of the procedure were explained to the patient and informed consent was obtained. The right basilic vein was localized using ultrasound guidance. The skin was prepped and draped in a sterile fashion. 1% lidocaine was used as a local anesthetic. Using ultrasound guidance the basilic vein was cannulated and a 0.018 guidewire was inserted and advanced to the SVC using fluoroscopic guidance. The needle was removed and a 5.5 [place]uran dilator and peel-away sheath was inserted over the guide wire. A 5.5 [place] dual lumen catheter was cut to length of 42 cm. The dilator was removed and the catheter was inserted over the guide wire with the tip ending in the SVC. The peel-away sheath was removed and the catheter was flushed with heparinized saline as per Hospital protocol. The catheter was affixed to the skin and a sterile dressing was applied. The patient tolerated the procedure well and there were no immediate complications. 0.1 minutes of fluoro time was utilized for this procedure. Reviewed by GAVI Mckeon 09/18/2018 05:11 P Electronically Signed by Jeffery Mcnally MD 09/19/2018 04:11 P
--- NOTE | 2018-09-19 17:27 | IPN ---
DATE: 09/19/2018 Mr. Early is seen this morning on his bedside. He reports that last evening he had difficulty breathing, and intravenous (IV) fluid was stopped. He has been in negative fluid balance, due to which IV fluid was started. He has acute renal failure, which is improving only slowly. Since admission, total negative of about 10 liters, though intake and output records are not accurate. He has been recorded negative every day for several days. In any event, he has no fever or chills, and his dyspnea has improved. He denies any nausea or vomiting. PHYSICAL EXAMINATION: Temperature 98 degrees Fahrenheit, heart rate 88 per minute, respiratory rate 22 per minute, blood pressure 138/86 mm of mercury, and oxygen saturation 96%. His head is atraumatic. Neck veins are prominent. There is no oral thrush or ulcers. Heart sounds are regular and lungs with slightly diminished breath sounds at bases. Abdomen obese, soft, and nontender, and bowel sounds are present. Extremities without cyanosis or clubbing. Right foot is wrapped in dressing. Intake and output records from yesterday show a negative fluid balance of 1110 mL. Today's labs show WBC count 12.4, hemoglobin 12.3, and hematocrit 37.0. Sodium 134, potassium 5.0, CO2 of 23, BUN 80, and creatinine 4.61. Glucose 204 and calcium 7.6. He is now on heparin drip with a PTT of 63.2. PROBLEMS: 1. Acute renal failure. Kidney function is improving gradually. Giving him intravenous (IV) fluid did not help much. He has been in negative fluid balance. We are going to continue to monitor. Once his kidney function improves further, then he is going to require angiogram of his right lower extremity due to possible arterial compromise. 2. Infected right foot. The patient had debridement done twice. He is going to require an angiogram of his right lower extremity. I have requested Dr. Elizabeth to wait at least until next week and let his kidney function improve further before subjecting him to intravenous dye. 3. Hypertension. Blood pressure remains very well controlled on current medications, and no changes are being made today.
[2018-09-19] MEDS ORDERED: HEPARIN SOD (PORCINE) 5000 UNITS/ML VIAL IV ONE (19:00)
[2018-09-19] MEDS ORDERED: AUGMENTIN 875 MG TAB PO SCH (21:00)
[2018-09-19] MEDS: AUGMENTIN 500 MG TAB PO SCH (21:20)
[2018-09-19 22:00] VITALS: BP 148/82
[2018-09-20] VITALS (8 sets, daily range): BP systolic 136–190; BP diastolic 63–94
[2018-09-20] MEDS: HEPARIN DRIP 25,000 UNITS in APPROPRIATE DILUENT 1 EA IV SCH ×3 (03:33→23:05)
[2018-09-20] MEDS: SODIUM CHLORIDE 0.9% INJ 10 ML SYR IV SCH ×2 (05:48→18:14)
[2018-09-20] MEDS: SLF 3 ML SYR IV SCH ×3 (05:48→22:00)
[2018-09-20 07:36] LABS: BASO # 0.1 10^3/uL (0.0-0.2); BASO % 0.6 % (0.0-1.0); EOS # 0.2 10^3/uL (0.0-0.50); EOS % 1.6 % (0.0-3.0); HEMATOCRIT 39.2 % (42.0-52.0); HEMOGLOBIN 13.3 g/dl (13.5-17.5); LYMPH # 0.6 10^3/uL (1.5-4.5); LYMPH % 4.9 % (24.0-44.0); MEAN CORPUSCULAR HEMOGLOBIN 31.4 pg (27.0-33.0); MEAN CORPUSCULAR HGB CONC 33.9 g/dl (32.0-36.5); MEAN CORPUSCULAR VOLUME 92.5 fl (80.0-96.0); MONO # 0.7 10^3/uL (0.0-0.8); NEUTROPHILS # 10.4 10^3/uL (1.8-7.7); NEUTROPHILS % 86.4 % (36.0-66.0); PLATELET COUNT, AUTOMATED 271 10^3/uL (150-450); RED BLOOD COUNT 4.24 10^6/uL (4.30-6.10)
[2018-09-20 07:55] LABS: CALCIUM LEVEL 8.1 MG/DL (8.8-10.2); CREATININE FOR GFR 4.81 MG/DL (0.70-1.30); GLOMERULAR FILTRATION RATE 13.2 (>49); POTASSIUM SERUM 4.8 MEQ/L (3.5-5.1)
[2018-09-20] MEDS: LEVEMIR (INSULIN DETEMIR) 1 UNITS/0.01ML SC SCH ×2 (08:43→20:45)
[2018-09-20] MEDS: HumaLOG INSULIN (NovoLOG) PER UNIT SC SCH ×4 (08:44→20:44)
[2018-09-20] MEDS: amLODIPine 10 MG TAB PO SCH (08:47)
[2018-09-20] MEDS: AUGMENTIN 500 MG TAB PO SCH ×2 (09:36→20:44)
[2018-09-20] MEDS: SANTYL OINT 30GM TOP SCH (09:36)
[2018-09-20] MEDS: METOPROLOL TART 25 MG TABLET PO SCH ×2 (09:44→20:44)
[2018-09-20] MEDS: PERCOCET 5MG/325MG TAB PO PRN (10:05)
--- NOTE | 2018-09-20 10:13 | IPNPDOC ---
Date Seen The patient was seen on 09/20/18. Progress Note SUBJECTIVE: No fever or chills overnight Pt was started on iv heparin gtt per vascular surgery with plans for stent placement in the right LE on Saturday to improve wound healing. Pt's pain int he right foot is tolerable with current pain meds. CXR: increased interstitial markings. IV fluids discontinued. OBJECTIVE VITALS: PLS SEE BELOW General Exam: Positive: Alert, Cooperative, No Acute Distress ENT Exam: Positive: Atraumatic, Mucous membr. moist/pink Neck Exam: Negative: JVD Chest Exam: Positive: dimnished. fine crackles b/l Heart Exam: Positive: Rate Normal, Normal S2 Abdomen Exam: Positive: Soft; Negative: Tenderness Extremity Exam: Positive: Tenderness Skin Exam: right foot extensor tendons are exposed. able to move his toes. 2cm plantar tunneled ulcer appears clean with no surrounding erythema or fluctuance. Psych Exam: Positive: Oriented x 3 Assessment /Plan Sepsis 2/2 Right Diabetic neuropathic Foot Infection Blood cultures negative MRI Foot with no evidence of osteomyelitis consulted vascular surgery for stent to improve wound healing. on Iv Heparin gtt Dr. Suarez s/p debridement x 2. s/p I&D on 09/09/18 will need further visit to OR once more stable. 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 Dr. Suarez s/p debridement x 2. s/p I&D on 09/09/18 will need further visit to OR once more stable. Cultures growing multiple organisms consulted ID s/p zosyn on po augmentin Peripheral vascular disease consulted vascular surgery for stent to improve wound healing. on Iv Heparin gtt will be on ASA and plavix post stent placement. Acute Kidney Injury Likely 2/2 relative hypotension--Patient was noted to have a SBP of 205prior to procedure, and after receiving his medications for the AM, and Anesthesia (Propofol, Versed) for his procedure his BP was noted to be 87/51 at noon post- operatively and being on lisinopril. Renal U/S with no obstruction creatinine seems to be plateauing. nephrology managing fluid balance. Fluid overload s/p ivfluids managed by nephrology cxr: increased interstitial markings. New diagnosis of diabetes HgbA1c noted to be 11% We are currently up-titrating the patient's Insulin dosing Diabetic teaching ordered We will cont to monitor blood glucose levels Morbid obesity with possibly CHELO As seen with hypoxia during sleep Nocturnal oximetry also suggests underlying CHELO will need sleep study after discharge Newly diagnosed Hypertension Cont amlodipine. BP not well controlledinitially. on metoprolol. s/p clonidine x 1 for [id number] Deep venous thrombosis (DVT) prophylaxis VS, I&O, 24H, Fishbone Vital Signs/I&O Vital Signs Date Time Temp Pulse Resp B/P (MAP) Pulse Ox O2 Delivery O2 Flow Rate FiO2 09/20/18 10:05 18 09/20/18 09:44 104 175/94 09/20/18 06:00 99.3 92 09/19/18 13:16 2.0 I&O- Last 24 Hours up to 6 AM 09/20/18 05:59 Intake Total 1586 ml Output Total 2250 ml Balance -664 ml Laboratory Data 24H LABS Laboratory Tests 2 09/19/18 11:36: Activated Partial Thromboplast Time 68.0H 09/19/18 11:50: Bedside Glucose (Misc Panel) 197H 09/19/18 16:29: Bedside Glucose (Misc Panel) 154H 09/19/18 18:20: Activated Partial Thromboplast Time 49.5H 09/19/18 20:17: Bedside Glucose (Misc Panel) 171H 09/20/18 01:29: Activated Partial Thromboplast Time 101.1H 09/20/18 06:25: Bedside Glucose (Misc Panel) 133H 09/20/18 07:17: Activated Partial Thromboplast Time 97.8H, Immature Granulocyte % (Auto) 0.5, White Blood Count 12.0H, Red Blood Count 4.24L, Hemoglobin 13.3L, Hematocrit 39.2L, Mean Corpuscular Volume 92.5, Mean Corpuscular Hemoglobin 31.4, Mean Corpuscular Hemoglobin Concent 33.9, Red Cell Distribution Width 11.8, Platelet Count 271, Neutrophils (%) (Auto) 86.4H, Lymphocytes (%) (Auto) 4.9L, Monocytes (%) (Auto) 6.0H, Eosinophils (%) (Auto) 1.6, Basophils (%) (Auto) 0.6, Neutrophils # (Auto) 10.4H, Lymphocytes # (Auto) 0.6L, Monocytes # (Auto) 0.7, Eosinophils # (Auto) 0.2, Basophils # (Auto) 0.1, Nucleated Red Blood Cells % (auto) 0.0, Anion Gap 10, Glomerular Filtration Rate 13.2L, Blood Urea Nitrogen 81H, Creatinine 4.81H, Sodium Level 130L, Potassium Level 4.8, Chloride Level 98, Carbon Dioxide Level 22, Calcium Level 8.1L CBC/BMP Laboratory Tests 09/20/18 07:17 Red Blood Count 4.24 L, Mean Corpuscular Volume 92.5, Mean Corpuscular Hemoglobin 31.4, Mean Corpuscular Hemoglobin Concent 33.9, Red Cell Distribution Width 11.8, Neutrophils (%) (Auto) 86.4 H, Lymphocytes (%) (Auto) 4.9 L, Mon ocytes (%) (Auto) 6.0 H, Eosinophils (%) (Auto) 1.6, Basophils (%) (Auto) 0.6, Neutrophils # (Auto) 10.4 H, Lymphocytes # (Auto) 0.6 L, Monocytes # (Auto) 0.7, Eosinophils # (Auto) 0.2, Basophils # (Auto) 0.1, Calcium Level 8.1 L EDEN HADDAD MD Sep 20, 2018 10:12
[2018-09-20] MEDS ORDERED: cloNIDine 0.1 MG TAB PO ONE (10:30)
--- NOTE | 2018-09-20 10:43 | REP ---
Clinical: Shortness of breath. Comparison: 09/19/2018. Findings: Indistinct pulmonary vasculature with perihilar and lower lobe (right greater than left) infiltrates are appreciated. Differential diagnosis includes multifocal pneumonia and pulmonary vascular congestion. No obvious effusion. No pneumothorax. Stable PICC line with tip in the SVC. Skeletal structures intact. Impression: Differential diagnosis includes pulmonary vascular congestion and multifocal pneumonia. Electronically Signed by Oswaldo Merritt MD 09/20/2018 10:35 A
[2018-09-20] MEDS ORDERED: FUROSEMIDE 40 MG/4 ML VIAL (J1940) IV ONE (12:30)
[2018-09-21 02:00] VITALS: BP 153/71
[2018-09-21] MEDS: SODIUM CHLORIDE 0.9% INJ 10 ML SYR IV SCH ×2 (04:42→18:01)
[2018-09-21] MEDS: SLF 3 ML SYR IV SCH ×2 (04:42→14:00)
[2018-09-21 06:00] VITALS: BP 162/80
[2018-09-21 06:56] LABS: BASO # 0.1 10^3/uL (0.0-0.2); BASO % 0.5 % (0.0-1.0); EOS # 0.3 10^3/uL (0.0-0.50); EOS % 2.9 % (0.0-3.0); HEMOGLOBIN 11.9 g/dl (13.5-17.5); LYMPH # 0.8 10^3/uL (1.5-4.5); LYMPH % 7.2 % (24.0-44.0); MEAN CORPUSCULAR HEMOGLOBIN 30.5 pg (27.0-33.0); MEAN CORPUSCULAR HGB CONC 33.1 g/dl (32.0-36.5); MEAN CORPUSCULAR VOLUME 92.3 fl (80.0-96.0); MONO % 9.2 % (0.0-5.0); NEUTROPHILS # 8.5 10^3/uL (1.8-7.7); NEUTROPHILS % 79.8 % (36.0-66.0); PLATELET COUNT, AUTOMATED 239 10^3/uL (150-450); WHITE BLOOD COUNT 10.6 10^3/uL (4.0-10.0)
--- NOTE | 2018-09-21 07:02 | IPNPDOC ---
Date Seen The patient was seen on 09/21/18. Progress Note SUBJECTIVE: No fever or chills overnight. tolerating heparin iv gtt without sob, chest heaviness. pt has been spending most of his time on his bedside recliner. Pt was started on iv heparin gtt per vascular surgery with plans for stent placement in the right LE on Saturday to improve wound healing. Pt's pain int he right foot is tolerable with current pain meds. CXR: increased interstitial denny ings. IV fluids discontinued. OBJECTIVE VITALS: PLS SEE BELOW General Exam: Positive: Alert, Cooperative, No Acute Distress ENT Exam: Positive: Atraumatic, Mucous membr. moist/pink Neck Exam: Negative: JVD Chest Exam: Positive: dimnished. fine crackles b/l Heart Exam: Positive: Rate Normal, Normal S2 Abdomen Exam: Positive: Soft; Negative: Tenderness Extremity Exam: Positive: Tenderness Skin Exam: right foot extensor tendons are exposed. able to move his toes. 2cm plantar tunneled ulcer appears clean with no surrounding erythema or fluctuance. 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 on Iv Heparin gtt Dr. Suarez s/p debridement x 2. s/p I&D on 09/09/18 will need further visit to OR once more stable. 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 Dr. Suarez s/p debridement x 2. s/p I&D on 09/09/18 will need further visit to OR once more stable. Cultures growing multiple organisms consulted ID s/p zosyn on po augmentin Peripheral vascular disease consulted vascular surgery for stent to improve wound healing. on Iv Heparin gtt will be on ASA and plavix post stent placement. Acute Kidney Injury Likely 2/2 relative hypotension--Patient was noted to have a SBP of 205prior to procedure, and after receiving his medications for the AM, and Anesthesia (Propofol, Versed) for his procedure his BP was noted to be 87/51 at noon post- operatively and being on lisinopril. Renal U/S with no obstruction creatinine seems to be plateauing. nephrology managing fluid balance. Fluid overload s/p ivfluids managed by nephrology cxr: increased interstitial markings. New diagnosis of diabetes HgbA1c noted to be 11% We are currently up-titrating the patient's Insulin dosing Diabetic teaching ordered We will cont to monitor blood glucose levels Morbid obesity with possibly CHELO As seen with hypoxia during sleep Nocturnal oximetry also suggests underlying CHELO will need sleep study after discharge Newly diagnosed Hypertension Cont amlodipine. BP not well controlledinitially. on metoprolol. s/p clonidine x 1 for [id number] Deep venous thrombosis (DVT) prophylaxis VS, I&O, 24H, Fishbone Vital Signs/I&O Vital Signs Date Time Temp Pulse Resp B/P (MAP) Pulse Ox O2 Delivery O2 Flow Rate FiO2 09/21/18 02:00 99.5 89 20 153/71 (98) 93 09/19/18 13:16 2.0 I&O- Last 24 Hours up to 6 AM 09/21/18 06:00 Intake Total 1560 ml Output Total 1500 ml Balance 60 ml Laboratory Data 24H LABS Laboratory Tests 2 09/20/18 06:25: Bedside Glucose (Misc Panel) 133H 09/20/18 07:17: Immature Granulocyte % (Auto) 0.5, White Blood Count 12.0H, Red Blood Count 4.24L, Hemoglobin 13.3L, Hematocrit 39.2L, Mean Corpuscular Volume 92.5, Mean Corpuscular Hemoglobin 31.4, Mean Corpuscular Hemoglobin Concent 33.9, Red Cell Distribution Width 11.8, Platelet Count 271, Neutrophils (%) (Auto) 86.4H, Lymphocytes (%) (Auto) 4.9L, Monocytes (%) (Auto) 6.0H, Eosinophils (%) (Auto) 1.6, Basophils (%) (Auto) 0.6, Neutrophils # (Auto) 10.4H, Lymphocytes # (Auto) 0.6L, Monocytes # (Auto) 0.7, Eosinophils # (Auto) 0.2, Basophils # (Auto) 0.1, Nucleated Red Blood Cells % (auto) 0.0, Activated Partial Thromboplast Time 97.8H, Anion Gap 10, Glomerular Filtration Rate 13.2L, Blood Urea Nitrogen 81H, Creatinine 4.81H, Sodium Level 130L, Potassium Level 4.8, Chloride Level 98, Carbon Dioxide Level 22, Calcium Level 8.1L 09/20/18 12:03: Bedside Glucose (Misc Panel) 162H 09/20/18 16:55: Bedside Glucose (Misc Panel) 125H 09/20/18 18:05: Activated Partial Thromboplast Time 78.0H 09/20/18 19:59: Bedside Glucose (Misc Panel) 174H CBC/BMP Laboratory Tests 09/20/18 07:17 Red Blood Count 4.24 L, Mean Corpuscular Volume 92.5, Mean Corpuscular Hemoglobin 31.4, Mean Corpuscular Hemoglobin Concent 33.9, Red Cell Distribution Width 11.8, Neutrophils (%) (Auto) 86.4 H, Lymphocytes (%) (Auto) 4.9 L, Monocytes (%) (Auto) 6.0 H, Eosinophils (%) (Auto) 1.6, Basophils (%) (Auto) 0.6, Neutrophils # (Auto) 10.4 H, Lymphocytes # (Auto) 0.6 L, Monocytes # (Auto) 0.7, Eosinophils # (Auto) 0.2, Basophils # (Auto) 0.1, Calcium Level 8.1 L EDEN HADDAD MD Sep 21, 2018 06:06
[2018-09-21 07:11] LABS: CALCIUM LEVEL 7.5 MG/DL (8.8-10.2); GLOMERULAR FILTRATION RATE 12.6 (>49); POTASSIUM SERUM 4.7 MEQ/L (3.5-5.1)
[2018-09-21] MEDS: HumaLOG INSULIN (NovoLOG) PER UNIT SC SCH ×4 (07:30→21:00)
--- NOTE | 2018-09-21 07:32 | IPN ---
DATE OF SERVICE: 09/20/2018 SUBJECTIVE: Patient was seen and examined at the bedside today morning. He continues to be on heparin drip. There is no intravenous (IV) fluids at this time. He is nonoliguric at this time. However, there is no significant improvement in renal function. Creatinine is slightly up today at 4.8. He denies any acute complaints, fevers, chills, or rigors. OBJECTIVE: Vital signs: When I saw him today morning, his temperature was 98.9 degrees Fahrenheit, blood pressure 175/94, pulse is 105, respiratory rate of 17, saturating 90% on room air. Intake and output: Urine output recorded is 4.2 liters yesterday, 1150 mL so far today since overnight. Weight on the bed scale is not available. PHYSICAL EXAMINATION: General: Patient is awake, alert, oriented times three, sitting up in the bed, no apparent distress. Head and neck exam: Extraocular muscles intact. Pupils are equally round and reactive to light. Mucous membranes are moist. Neck is supple. Mildly elevated jugular venous distention (JVD). Cardiovascular: S1, S2. Regular rate. 1+ edema of the bilateral lower extremities. Respiratory: Mildly decreased breath sounds at the bases. No active rales or rhonchi. Abdomen is soft, obese. Positive bowel sounds. Musculoskeletal: 1+ edema of the extremities. Right foot has a dressing. Central nervous system (LEATHER STRETCHER): No focal deficit. Power is 5/5 in all extremities. LABORATORY REVIEW: CBC showed a WBC of 12, hemoglobin 13.3, platelets are 271. BMP showed sodium 130, potassium 4.8, chloride 98, bicarbonate 22, BUN 81, creatinine is 4.8, it was 4.6 yesterday, calcium 8.1. IMAGING: A chest x-ray was done today morning, which showed pulmonary vascular congestion right greater than left. Differential diagnosis includes pulmonary edema versus multifocal pneumonia. CURRENT INPATIENT MEDICATIONS: Patient's medications were all reviewed by me. He continues to be on heparin drip. He is currently on Augmentin 500 mg twice a day. I gave him a dose of Lasix 40 mg IV times one dose today morning. No other change in the medications today as compared with yesterday. ASSESSMENT AND PLAN: 1. Acute renal failure. Patient has nonoliguric renal failure. He continues to have good urine output. However, there are signs of pulmonary vascular congestion on the chest x-ray. I have given him a dose of Lasix 40 mg IV times one dose. Electrolytes are within the acceptable range. Acid-base status is optimal. No urgent need of hemodialysis at this time. 2. Hyponatremia. Patient likely has hypervolemic, hyponatremia. He was given a dose of Lasix. Monitor the sodium level at this point. No need of salt administration. 3. Infected right foot. Patient is status post debridement. He also has ischemia in the right leg. He is currently on heparin drip. Okay to continue Augmentin at this point. 4. Hypertension. Patient's blood pressures are elevated. Continue current dose of amlodipine 10 mg by mouth daily. Clonidine one dose was given today morning. Continue metoprolol 25 mg by mouth twice a day. A dose of Lasix was also given. Volume status improvement would also have improved blood pressure.
[2018-09-21] MEDS: AUGMENTIN 500 MG TAB PO SCH (08:38)
[2018-09-21] MEDS: LEVEMIR (INSULIN DETEMIR) 1 UNITS/0.01ML SC SCH ×2 (08:38→21:45)
[2018-09-21] MEDS: amLODIPine 10 MG TAB PO SCH (08:39)
[2018-09-21] MEDS: METOPROLOL TART 25 MG TABLET PO SCH ×2 (08:39→21:45)
[2018-09-21] MEDS: SANTYL OINT 30GM TOP SCH (08:40)
[2018-09-21] MEDS: HEPARIN DRIP 25,000 UNITS in APPROPRIATE DILUENT 1 EA IV SCH ×2 (08:51→18:04)
[2018-09-21 10:00] VITALS: BP 145/66
[2018-09-21 14:00] VITALS: BP 143/62
[2018-09-21] MEDS: PERCOCET 5MG/325MG TAB PO PRN (16:01)
--- NOTE | 2018-09-21 18:47 | IPN ---
DATE: 09/21/2018 SUBJECTIVE: Patient was seen and examined at the bedside today morning. He is afebrile and hemodynamically stable. He is sitting up on the sofa. He was given a dose of Lasix yesterday. He made more than 2 liters of urine; however, his renal function is slightly worse. His creatinine has bumped up to 5 today. He denies any shortness of breath, nausea or vomiting. OBJECTIVE: Vital signs: Temperature is 98.5 degrees Fahrenheit, blood pressure 141/66, pulse 90, respiratory rate of 20, saturation 93% on room air. Intake and output: Urine output recorded as 2.6 liters yesterday and 1.1 liters so far today since overnight. Weight on the bedscale is not available. PHYSICAL EXAMINATION: General: Patient is awake, alert, oriented times three, sitting up on the sofa, no apparent distress. Head and neck exam: Extraocular muscles intact. Pupils are equally round and reactive to light. Mucous membranes are moist. Neck is supple. There is no jugular venous distention (JVD). Cardiovascular: S1, S2. Regular rate. 1+ edema of the bilateral lower extremities. Respiratory: Mildly decreased breath sounds at the bases, otherwise no active rales or rhonchi. Abdomen is soft, obese. Positive bowel sounds, nontender. No organomegaly. Genitourinary: He has an indwelling Toussaint catheter, urine in the bag is clear. Musculoskeletal: No clubbing or cyanosis. He has a peripherally inserted central catheter (PICC) line in the right upper arm. Central nervous system (CIVIL GEOTECHNICAL ENGINEER): No focal deficit. Power is 5/5 in all extremities. LABORATORY REVIEW: Complete blood count (CBC) showed a WBC of 10.6, hemoglobin 11.9, platelets 239. Basic metabolic panel (BMP) showed sodium 130, potassium 4.7, chloride 96, bicarbonate 23, BUN 84, creatinine 5. CURRENT INPATIENT MEDICATIONS: Patient's medications were all reviewed by me. His Augmentin dose has been decreased to 500 mg by mouth daily because of low GFR. No other change in the medications today as compared with yesterday. ASSESSMENT AND PLAN: 1. Acute renal failure. Patient is still nonoliguric. His urine output is more than 2 liters yesterday. There are no signs of uremia. Continue to monitor for renal function. 2. Lower extremity edema. The patient was given a dose of Lasix yesterday; however, with the Lasix his creatinine has bumped up. THe patient is making a good amount of urine. No need of diuretics today. 3. Infected right foot ulcer. Patient is status post debridement. I have decreased the Augmentin dose to 500 mg by mouth daily because of GFR of less than 15. 4. Hypertension. Blood pressure is optimal. Continue current dose of amlodipine and metoprolol.
[2018-09-21 21:00] VITALS: O2SAT 96
[2018-09-21 22:00] VITALS: BP 141/64
[2018-09-22] VITALS (7 sets, daily range): BP systolic 135–164; BP diastolic 67–96; O2SAT 96–97
[2018-09-22] MEDS: HEPARIN DRIP 25,000 UNITS in APPROPRIATE DILUENT 1 EA IV SCH ×3 (04:06→20:44)
[2018-09-22] MEDS: SODIUM CHLORIDE 0.9% INJ 10 ML SYR IV SCH ×2 (06:00→18:00)
[2018-09-22 06:41] LABS: CREATININE FOR GFR 5.37 MG/DL (0.70-1.30); GLOMERULAR FILTRATION RATE 11.6 (>49); POTASSIUM SERUM 4.8 MEQ/L (3.5-5.1)
--- NOTE | 2018-09-22 07:48 | IPNPDOC ---
Date Seen The patient was seen on 09/22/18. Progress Note SUBJECTIVE:Pt is not on the schedule for vascular surgery due to his elevated creatinine, and has been changed back to po renal/consistent carbs diet. No fever or chills overnight. tolerating heparin iv gtt without sob, chest heaviness. pt has been spending most of his time on his bedside recliner. Pt was started on iv heparin gtt per vascular surgery with plans for stent placementto improve wound healing. Pt's pain int he right foot is tolerable with current pain meds. CXR: increased interstitial markings OBJECTIVE VITALS: PLS SEE BELOW General Exam: Positive: Alert, Cooperative, No Acute Distress ENT Exam: Positive: Atraumatic, Mucous membr. moist/pink Neck Exam: Negative: JVD Chest Exam: Positive: dimnished. fine crackles b/l Heart Exam: Positive: Rate Normal, Normal S2 Abdomen Exam: Positive: Soft; Negative: Tenderness Extremity Exam: Positive: Tenderness Skin Exam: right foot extensor tendons are exposed. able to move his toes. 2cm plantar tunneled ulcer appears clean with no surrounding erythema or fluctuance. 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 on Iv Heparin gtt Dr. Suarez s/p debridement x 2. s/p I&D on 09/09/18 will need further visit to OR once more stable. 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 Dr. Suarez s/p debridement x 2. s/p I&D on 09/09/18 will need further visit to OR once more stable. Cultures growing multiple organisms consulted ID s/p zosyn on po augmentin Peripheral vascular disease consulted vascular surgery for stent to improve wound healing. on Iv Heparin gtt will be on ASA and plavix post stent placement. not on schedule today due to elevated creatinine , pt's npo status has been discontinued. Acute Kidney Injury Likely 2/2 relative hypotension--Patient was noted to have a SBP of 205prior to procedure, and after receiving his medications for the AM, and Anesthesia (Propofol, Versed) for his procedure his BP was noted to be 87/51 at noon post- operatively and being on lisinopril. Renal U/S with no obstruction creatinine seems to be plateauing. nephrology managing fluid balance. stent postponed due to renal failure and elevated creatinine renal diet Fluid overload s/p ivfluids managed by nephrology cxr: increased interstitial markings. New diagnosis of diabetes HgbA1c noted to be 11% We are currently up-titrating the patient's Insulin dosing Diabetic teaching ordered We will cont to monitor blood glucose levels consistent carbs diet Morbid obesity with possibly CHELO As seen with hypoxia during sleep Nocturnal oximetry also suggests underlying CHELO will need sleep study after discharge Newly diagnosed Hypertension Cont amlodipine. BP not well controlledinitially. on metoprolol. s/p clonidine x 1 for [id number] Deep venous thrombosis (DVT) prophylaxis disposition: stent postponed due to elevated creatinine. VS, I&O, 24H, Fishbone Vital Signs/I&O Vital Signs Date Time Temp Pulse Resp B/P (MAP) Pulse Ox O2 Delivery O2 Flow Rate FiO2 09/22/18 06:00 96.7 83 20 164/67 (99) 95 09/21/18 21:00 Room Air 09/21/18 07:00 2.0 I&O- Last 24 Hours up to 6 AM 09/22/18 06:00 Intake Total 2454 ml Output Total 2725 ml Balance -271 ml Laboratory Data 24H LABS Laboratory Tests 2 09/21/18 11:23: Bedside Glucose (Misc Panel) 157H 09/21/18 16:39: Bedside Glucose (Misc Panel) 246H 09/21/18 19:47: Bedside Glucose (Misc Panel) 214H 09/22/18 05:25: Anion Gap 9, Glomerular Filtration Rate 11.6L, Blood Urea Nitrogen 91H, Creatinine 5.37H, Sodium Level 131L, Potassium Level 4.8, Chloride Level 99, Carbon Dioxide Level 23, Calcium Level 8.0L CBC/BMP Laboratory Tests 09/22/18 05:25 Calcium Level 8.0 L Microbiology Microbiology 09/21/18 Stool Occult Blood (SHEILA) - Final, Complete EDEN HADDAD MD Sep 22, 2018 07:48
[2018-09-22] MEDS: LEVEMIR (INSULIN DETEMIR) 1 UNITS/0.01ML SC SCH ×2 (08:04→21:03)
[2018-09-22] MEDS: PERCOCET 5MG/325MG TAB PO PRN (08:05)
[2018-09-22] MEDS: HumaLOG INSULIN (NovoLOG) PER UNIT SC SCH ×4 (08:05→21:00)
[2018-09-22] MEDS: amLODIPine 10 MG TAB PO SCH (08:05)
[2018-09-22] MEDS: AUGMENTIN 500 MG TAB PO SCH (08:05)
[2018-09-22] MEDS: METOPROLOL TART 25 MG TABLET PO SCH ×2 (08:06→21:02)
--- NOTE | 2018-09-22 08:50 | IPNPDOC ---
Date Seen The patient was seen on 09/22/18. Progress Note HPI: This is a 63-year-old who has apparently not had primary care for the last 40 years, who presented 09/07/18 with chief complaint of right foot wound that had been worsening for the last several days. Patient had reported that after he took off his sock, he noticed red blood spots on his sock. He then noticed a wound on his right lateral foot. He was seen in the ED and admitted with seps is and Rt foot wound. The pt was seen by wound care and Podiatry S/P debridement of his wounds 09/10 and 09/17/18. The pt is followed as per ID, Dr Celis. Nephrology consulted for SHANITA with SCr 4.61 this AM. Vascular surgery is consulted for further evaluation of RLE wound. The pt denies pain at this time. Pt is OOB to chair. Denies any fevers, chills, Headache, CP, SOB, cough, palpitations, abdominal pain, N/V/D or changes in bowel or bladder habits. PMHx: DM HTN M Obesity BMI 49.2 Possible CHELO TTE 09/12/18 Nml EF, Gr2 DD. PSHX: debridement RLE 09/10 and 09/17/18. PE: GEN: 63yoM, appears stated age. Alert and oriented x 3. Pleasant, interactive. HEENT: Normocephalic, atraumatic. Sclera are nonicteric. Conjunctiva without injection. No facial asymmetry. Moist mucous membranes. CHEST: Regular rate and rhythm, +S1, +S2 LUNGS: Good A/E upper [place], insp rales noted bases R>L. No wheezes, or rhonchi. ABD: Round, soft, non-tender, non-distended. +Bowel sounds throughout. No rebound or guarding. EXT: The rt foot is wrapped with dressing. The pt is s/p debridement 09/17/18 of wound dorsolateral and plantar aspect of foot. There is no erythema extending b eyond previously demarcated areas. NEURO: Alert and oriented x 3. No focal deficits appreciated. Foot XR Lateral soft tissue ulcer in the midfoot with no radiographic evidence of osteomyelitis. No acute fracture or dislocation. Electronically Signed by Jeffery Mcnally MD 09/08/2018 09:16 A Foot MRI Noncontrast study shows the lateral forefoot soft tissue irregularity and edema. No abscess or evidence of osteomyelitis seen. Electronically Signed by Greyson Anaya MD 09/09/2018 11:27 A EKG SINUS TACHYCARDIA POSSIBLE LEFT ATRIAL ENLARGEMENT NONSPECIFIC ST T-WAVE ABNORMALITY RATE FASTER PRWP WITH NEW PROMINENT S WAVES LATERAL PRECORDIAL LEADS SINCE 09/09/18 Electronically Signed On 09-19-2018 6:04:52 EDT by Deysi Noel A&P: This is a 63-year-old who has not had primary care for the last 40 years, who presented 09/07/18 with chief complaint of right foot wound that had been worsening for the last several days. Patient reported that after he took off his sock, he noticed red blood spots on his sock. He then noticed a wound on his right lateral foot. He was seen in the ED and admitted with sepsis and Rt foot wound. The pt was seen by wound care and Podiatry with debridement 09/10 and 09/17/18. The pt is followed as per ID, Dr Celis. Nephrology consulted for SHANITA with SCr 4. 92 currently. Vascular surgery is consulted for further evaluation of RLE wound. 1. PVD The pt is reviewed and examined by Dr Elizabeth, vascular surgery. RLE arterial U/S 09/18/18 indicated monophasic distal CHEMISTRY LABORATORY TECHNICIAN/MATTY, mod-signif stenosis calf. Continue IV Heparin gtt. Await Nephrology clearance re proceeding with RLE angiogram. SCR 5.37. Monitor renal function. 2. Right Diabetic Foot Infection/wound with sepsis. S/P debridement as per Podiatry 09/10/18, 09/17/18. Dr Suarez following. Pt is afebrile. WBC 10.6 this AM. 09/17/18 ESR 107/CRP 4.50. Blood culture x 2 negative MRI Foot with no evidence of osteomyelitis Cultures growing multiple organisms, Dr Celis ID following. S/P Zosyn IV now on po Augmentin. Continue with wound care. 3. SHANITA Possibly related to hypotension after procedure 09/17/18, BP was noted to be 87/51 post-operatively and being on lisinopril. ACEI on hold. S/P IVF as per nephrology. S/P IV lasic for fluid overload 09/20/18. Renal U/S with no obstruction SCr 5.37. Nephrology following. 4. DM HgbA1c noted to be 11.0 09/07/18 Levemir/SSI. BS 157-214. 5. Morbid obesity with possible CHELO Nocturnal oximetry also suggests underlying CHELO Plan is for sleep study after discharge 6. HTN. amlodipine/metoprolol. 7. SOB. Sat 95% on 2 LNC. Afebrile. VSS. S/P IV Lasix 09/20/18 for fluid overload. Mgmt as per primary team. VS, I&O, 24H, Fishbone Vital Signs/I&O Vital Signs Date Time Temp Pulse Resp B/P (MAP) Pulse Ox O2 Delivery O2 Flow Rate FiO2 09/22/18 08:06 83 164/67 09/22/18 08:05 18 09/22/18 06:00 96.7 95 09/21/18 21:00 Room Air 09/21/18 07:00 2.0 I&O- Last 24 Hours up to 6 AM 09/22/18 06:00 Intake Total 2454 ml Output Total 2725 ml Balance -271 ml Laboratory Data 24H LABS Laboratory Tests 2 09/21/18 11:23: Bedside Glucose (Misc Panel) 157H 09/21/18 16:39: Bedside Glucose (Misc Panel) 246H 09/21/18 19:47: Bedside Glucose (Misc Panel) 214H 09/22/18 05:25: Anion Gap 9, Glomerular Filtration Rate 11.6L, Blood Urea Nitrogen 91H, Creatinine 5.37H, Sodium Level 131L, Potassium Level 4.8, Chloride Level 99, Carbon Dioxide Level 23, Calcium Level 8.0L CBC/BMP Laboratory Tests 09/22/18 05:25 Calcium Level 8.0 L Microbiology Microbiology 09/21/18 Stool Occult Blood (SHEILA) - Final, Complete Yeni Yusuf Sep 22, 2018 08:49
--- NOTE | 2018-09-22 15:21 | IPN ---
DATE: 09/22/2018 SUBJECTIVE: Patient was seen and examined at the bedside today morning. He was sitting on the sofa. He was nothing by mouth overnight for possible procedure, which has been cancelled and there is a bump in the creatinine from 5 to 5.3 today. He is still nonoliguric. He made almost 2.7 liters of urine yesterday. He denies any shortness of breath, nausea, vomiting. OBJECTIVE: Vital signs: Temperature is 96.8 degrees Fahrenheit, blood pressure 149/67, pulse 67, respiratory rate of 20, saturation 98% on room air. Intake and output: Urine output recorded as 2.7 liters yesterday and 1.6 liters so far today since overnight. Weight on the bed scale is 135.8 kg. PHYSICAL EXAMINATION: General: Patient is awake, alert, oriented times three, sitting up on the sofa, no apparent distress. Head and neck exam: Extraocular muscles intact. Pupils are equally round and reactive to light. Mucous membranes are moist. Neck is supple. There is no jugular venous distention (JVD). Cardiovascular: S1, S2. Regular rate. 1+ edema of the bilateral lower extremities. Respiratory: Clear to auscultation bilaterally up to mid lung zones. Decreased breath sounds at the bases. Poor inspiratory effort. Abdomen is soft, obese. Positive bowel sounds, nontender. Genitourinary: He has an indwelling Toussaint catheter, urine in the bag is clear and light yellow in color. Musculoskeletal: No clubbing or cyanosis. He has a dressing on the right foot. Right upper arm has a peripherally inserted central catheter (PICC) line. Central nervous system (MANAGER LOSS PREVENTION): No focal deficit. Power is 5/5 in bilateral upper and lower extremities. He is oriented times three. LABORATORY REVIEW: Complete blood count (CBC) showed a WBC of 10.6, hemoglobin 11.9, platelets 239. Basic metabolic panel (BMP) showed sodium 131, potassium 4.8, chloride 99, bicarbonate 23, BUN 91, creatinine 5.3, it was 5 yesterday. Calcium was 8. CURRENT INPATIENT MEDICATIONS: Patient's medications were all reviewed by me. There is no change in the medications today as compared with yesterday. ASSESSMENT AND PLAN: 1. Acute renal failure. Patient has nonoliguric renal failure. No signs of improvement of the renal function so far. Creatinine has been fluctuating close to 5; however, his volume status is optimal and electrolytes are within the acceptable range. I will continue to monitor him. If I do not see any signs of improvement of the renal function over the next 2 to 3 days, then I will discuss the initiation of hemodialysis with this patient. 2. Infected right foot ulcer. Patient's GFR is less than 15. He continues to be on Augmentin 500 mg by mouth daily. 3. Hypertension. Blood pressure is acceptable. Continue current dose of amlodipine 10 mg by mouth daily and metoprolol 25 mg by mouth twice a day. 4. Right lower extremity ischemia. THe patient is currently on heparin drip. He is tentatively pending an angiogram of the right leg; however, if we do the angiogram in this state with recovering renal function, it would further delay the patient's renal recovery; however, if the patient needs to start hemodialysis during this hospitalization, then he can get the angiogram of the leg done.
[2018-09-22] MEDS: SANTYL OINT 30GM TOP SCH (17:32)
--- NOTE | 2018-09-22 22:15 | IPN ---
DATE: 09/22/2018 Mr. Early has no major complaints today. He stated that he was supposed to have an angiogram done today but it was cancelled because of persistently elevated creatinine. He has mild shortness of breath. He uses oxygen mostly to sleep. No nausea, vomiting or diarrhea. No abdominal pain. MEDICATIONS: Currently on Augmentin 500 mg by mouth daily. IV antibiotics were discontinued. On physical exam, temperature is 96.1, pulse 72, respirations 18, blood pressure 142/88, oxygen saturation 97% on 2 liters nasal cannula. Right foot gangrene of the 4th and 5th toe, open wound with exposed tendons 3, 4, and 5. There is no purulent discharge but there is no improvement in wound granulation, actually There is worsening gangrene of the toes. Maceration of the inferior aspect of the foot as well. There is no cellulitis of the foot or the right leg. LABORATORY DATA: White count is 10.6, hemoglobin 11.9, hematocrit 36, platelets 239, 79% neutrophils, 8% lymphocytes, 9% monocytes. Sodium 131, potassium 4.8, chloride 99, bicarbonate 23, BUN 91, creatinine 5.37, glucose 167, calcium 8. IMPRESSION: 1. Gangrene of the right foot with gangrenous toe, complicated skin and soft tissue infection. The patient has received 10 days of IV Zosyn and currently has been switched to by mouth Augmentin to cover for group B Streptococcus and Staphylococcus coagulase negative. I do not see any improvement in the wound, it actually has worsened. I do not expect recovery of this foot. He will definitely need a transmetatarsal amputation. The patient was informed. I did discuss the case with Dr. Suarez. 2. Peripheral vascular disease. The patient needs angiogram but this has not been done due to acute kidney injury. Creatinine remains elevated at 5.37 which has actually worsened from last week. 3. Insulin-dependent diabetes. Glucose has been between 156 and 250. PLAN: Continue with by mouth Augmentin. If the patient undergoes transmetatarsal amputation I would definitely switch him to IV antibiotics perioperatively. Obtain CRP in the morning.
[2018-09-23] VITALS (14 sets, daily range): BP systolic 119–178; BP diastolic 43–89; O2SAT 96
[2018-09-23] MEDS: HEPARIN DRIP 25,000 UNITS in APPROPRIATE DILUENT 1 EA IV SCH ×3 (02:42→21:55)
[2018-09-23] MEDS: PERCOCET 5MG/325MG TAB PO PRN ×3 (04:21→20:56)
[2018-09-23] MEDS: SODIUM CHLORIDE 0.9% INJ 10 ML SYR IV SCH ×2 (05:31→17:36)
[2018-09-23 05:55] LABS: HEMATOCRIT 35.4 % (42.0-52.0); HEMOGLOBIN 11.9 g/dl (13.5-17.5); MEAN CORPUSCULAR HEMOGLOBIN 31.2 pg (27.0-33.0); MEAN CORPUSCULAR HGB CONC 33.6 g/dl (32.0-36.5); MEAN CORPUSCULAR VOLUME 92.7 fl (80.0-96.0); PLATELET COUNT, AUTOMATED 213 10^3/uL (150-450); RED BLOOD COUNT 3.82 10^6/uL (4.30-6.10); WHITE BLOOD COUNT 8.9 10^3/uL (4.0-10.0)
[2018-09-23 06:17] LABS: CALCIUM LEVEL 7.7 MG/DL (8.8-10.2); CREATININE FOR GFR 5.22 MG/DL (0.70-1.30)
[2018-09-23] MEDS: AUGMENTIN 500 MG TAB PO SCH (08:01)
[2018-09-23] MEDS: HumaLOG INSULIN (NovoLOG) PER UNIT SC SCH ×4 (08:01→20:57)
[2018-09-23] MEDS: amLODIPine 10 MG TAB PO SCH (08:02)
[2018-09-23] MEDS: METOPROLOL TART 25 MG TABLET PO SCH ×2 (08:02→20:56)
[2018-09-23] MEDS: LEVEMIR (INSULIN DETEMIR) 1 UNITS/0.01ML SC SCH ×2 (08:03→20:57)
--- NOTE | 2018-09-23 09:07 | IPNPDOC ---
Date Seen The patient was seen on 09/23/18. Progress Note HPI: This is a 63-year-old who has apparently not had primary care for the last 40 years, who presented 09/07/18 with chief complaint of right foot wound that had been worsening for the last several days. Patient had reported that after he took off his sock, he noticed red blood spots on his sock. He then noticed a wound on his right lateral foot. He was seen in the ED and admitted with seps is and Rt foot wound. The pt was seen by wound care and Podiatry S/P debridement of his wounds 09/10 and 09/17/18. The pt is followed as per ID, Dr Celis. Nephrology consulted for SHANITA. Vascular surgery is consulted for further evaluation of RLE wound. The pt denies pain at this time. Pt is OOB to chair. no new concerns at this time. Denies any fevers, chills, Headache, CP, SOB, cough, palpitations, abdominal pain, N/V/D or changes in bowel or bladder habits. PMHx: DM HTN M Obesity BMI 49.2 Possible CHELO TTE 09/12/18 Nml EF, Gr2 DD. PSHX: debridement RLE 09/10 and 09/17/18. PE: GEN: 63yoM, appears stated age. Alert and oriented x 3. Pleasant, interactive. HEENT: Normocephalic, atraumatic. Sclera are nonicteric. Conjunctiva without injection. No facial asymmetry. Moist mucous membranes. CHEST: Regular rate and rhythm, +S1, +S2 LUNGS: Good A/E upper [place], insp rales noted bases R>L. No wheezes, or rhonchi. ABD: Round, soft, non-tender, non-distended. +Bowel sounds throughout. No rebound or guarding. EXT: The rt foot is wrapped with dressing. The pt is s/p debridement 09/17/18 of wound dorsolateral and plantar aspect of foot. There is no erythema extending beyond previously demarcated areas. NEURO: Alert and oriented x 3. No focal deficits appreciated. Foot XR Lateral soft tissue ulcer in the midfoot with no radiographic evidence of osteomyelitis. No acute fracture or dislocation. Electronically Signed by Jeffery Mcnally MD 09/08/2018 09:16 A Foot MRI Noncontrast study shows the lateral forefoot soft tissue irregularity and edema. No abscess or evidence of osteomyelitis seen. Electronically Signed by Greyson Anaya MD 09/09/2018 11:27 A EKG SINUS TACHYCARDIA POSSIBLE LEFT ATRIAL ENLARGEMENT NONSPECIFIC ST T-WAVE ABNORMALITY RATE FASTER PRWP WITH NEW PROMINENT S WAVES LATERAL PRECORDIAL LEADS SINCE 09/09/18 Electronically Signed On 09-19-2018 6:04:52 EDT by Deysi Noel A&P: This is a 63-year-old who has not had primary care for the last 40 years, who presented 09/07/18 with chief complaint of right foot wound that had been worsening for the last several days. Patient reported that after he took off his sock, he noticed red blood spots on his sock. He then noticed a wound on his right lateral foot. He was seen in the ED and admitted with sepsis and Rt foot wound. The pt was seen by wound care and Podiatry with debridement 09/10 and 09/17/18. The pt is followed as per ID, Dr Celis. Nephrology consulted for SHANITA. Vascular surgery is consulted for further evaluation of RLE wound. 1. PVD The pt is reviewed and examined by Dr Elizabeth, vascular surgery. RLE arterial U/S 09/18/18 indicated monophasic distal STORE GIFT WRAP ASSOCIATE/MATTY, mod-signif stenosis calf. Continue IV Heparin gtt. Discussed with Nephrology clearance re proceeding with RLE angiogram. SCR 5.22 this AM. Could proceed with angiogram with IVF hydration prior to procedure. Relayed to Dr Elizabeth who is planning to proceed with diagnostic angio today with IVF hydration. Continue to monitor renal function. 2. Rt foot gangrene/Right Diabetic Foot wound with sepsis. S/P debridement as per Podiatry 09/10/18, 09/17/18. Dr Suarez following. Pt is afebrile. WBC 8.9 this AM. 09/17/18 ESR 107/CRP 4.50. CRP this AM 7.57 Blood culture x 2 negative MRI Foot with no evidence of osteomyelitis Cultures growing multiple organisms, Dr Celis ID following. S/P Zosyn IV now on po Augmentin. Continue with wound care. Dr Celis recommending transmetatarsal amputation as wounds do not appear to be improving. 3. SHANITA Non oliguric ARF, pt with urine output approx 2-2.5 L per day as per I/O. ACEI on hold. S/P IVF as per nephrology. S/P IV lasix for fluid overload 09/20/18. Renal U/S with no obstruction SCr 5.22. Nephrology following. 4. DM HgbA1c noted to be 11.0 09/07/18 Levemir/SSI. BS 156-214. 5. Morbid obesity with possible CHELO Nocturnal oximetry also suggests underlying CHELO Plan is for sleep study after discharge 6. HTN. amlodipine/metoprolol. 7. SOB. Sat 95% on 2 LNC. Afebrile. VSS. S/P IV Lasix 09/20/18 for fluid overload. Mgmt as per primary team. [facility]O Vital Signs Date Time Temp Pulse Resp B/P (MAP) Pulse Ox O2 Delivery O2 Flow Rate FiO2 09/23/18 08:02 76 154/79 09/23/18 07:52 96 2.0 09/23/18 06:00 96.9 17 09/22/18 21:00 Nasal Cannula I&O- Last 24 Hours up to 6 AM 09/23/18 05:59 Intake Total 3324 ml Output Total 4400 ml Balance -1076 ml Laboratory Data 24H LABS Laboratory Tests 2 09/22/18 09:04: Activated Partial Thromboplast Time 94.2H 09/22/18 11:35: Bedside Glucose (Misc Panel) 156H 09/22/18 16:46: Bedside Glucose (Misc Panel) 163H 09/22/18 20:02: Bedside Glucose (Misc Panel) 184H 09/23/18 05:18: Nucleated Red Blood Cells % (auto) 0.0, Activated Partial Thromboplast Time 97.6H, Anion Gap 10, Glomerular Filtration Rate 12.0L, Blood Urea Nitrogen 98H, Creatinine 5.22H, Sodium Level 130L, Potassium Level 5.0, Chloride Level 98, Car bon Dioxide Level 22, Calcium Level 7.7L, C-Reactive Protein, Quantitative 7.57H CBC/BMP Laboratory Tests 09/23/18 05:18 Red Blood Count 3.82 L, Mean Corpuscular Volume 92.7, Mean Corpuscular Hemoglobin 31.2, Mean Corpuscular Hemoglobin Concent 33.6, Red Cell Distribution Width 11.9, Calcium Level 7.7 L Microbiology Microbiology 09/21/18 Stool Occult Blood (SHEILA) - Final, Complete Yeni Yusuf Sep 23, 2018 09:07
[2018-09-23] MEDS ORDERED: BUPIVACAINE HCL 0.5% 10 ML VIAL As Ordered ONE (09:40)
[2018-09-23] MEDS ORDERED: HEPARIN 1,000 UNITS/ML 10ML VIAL (FOR RADIOLOGY& DIALYSIS ONLY) As Ordered ONE (09:40)
[2018-09-23] MEDS ORDERED: diphenhydrAMINE INJ 50MG/ML VIAL (J1200) As Ordered ONE (09:41)
[2018-09-23] MEDS ORDERED: ISOVUE-300 61% 100ML VIAL (Q9967) As Ordered ONE (09:41)
[2018-09-23] MEDS ORDERED: LIDOCAINE 2% MDV 20 ML VIAL As Ordered ONE (09:41)
--- NOTE | 2018-09-23 11:31 | IPN ---
DATE OF SERVICE: 09/23/2018 SUBJECTIVE: Patient was seen and examined at the bedside today morning. He still is nonoliguric. He is making almost 2 liters of urine everyday, but there is no significant improvement in renal function. Creatinine is still about 5 now. Electrolytes are within acceptable range. I talked to the primary team today, and they are planning to discuss possibly doing a diagnostic angiogram of the right lower extremity today with a very low amount of contrast. Patient denies any acute complaints at this point. OBJECTIVE: Vital signs: Temperature is 96.9 degrees Fahrenheit, blood pressure 154/79, pulse is 76, respiratory rate of 17, saturating 96% on nasal cannula at 2 liters. Intake and output: Urine output recorded as 2.4 liters yesterday, 1.9 liters so far today since overnight. Weight on the bed scale is 135.8 kg yesterday. PHYSICAL EXAMINATION: General: Patient is awake, alert, oriented times three, morbidly obese, sitting up in the sofa, in no apparent distress. Head and neck exam: Extraocular muscles intact. Pupils equally round and reactive to light. Mucous membranes are moist. Neck is supple. There is no jugular venous distention (JVD). Cardiovascular: S1, S2. Regular rate. 1+ edema of the bilateral lower extremities. Respiratory: Decreased breath sounds at the bases. Otherwise, no rales or rhonchi. Abdomen is soft, obese. Positive bowel sounds, nontender. Genitourinary: He has an indwelling Toussaint catheter. Musculoskeletal: No clubbing or cyanosis. He has a dressing on the right foot with sign of ischemia of the toes. Central nervous system (CHAR FILTER TANK TENDER): No focal deficit. Power is 5/5 in bilateral upper extremities. LAB REVIEW: CBC showed a WBC of 8.9, hemoglobin is 7.9, platelets are 213. BMP showed sodium 130, potassium is 5, chloride 90, bicarbonate 22, BUN 98, creatinine is 5.2, it was 5.3 yesterday, calcium is 7.7. Microbiology: Stool occult blood is positive from today. It was positive yesterday as well. CURRENT INPATIENT MEDICATIONS: Patient's medications were all reviewed by me. There is no change in the medications today as compared with yesterday. ASSESSMENT AND PLAN: 1. Acute renal failure. Patient has nonoliguric renal failure. No significant sign of renal recovery. Creatinine is still fluctuating in low 5s. However, his volume status is optimal. Electrolytes are within the acceptable range, is optimized. There is no need to urgently start the patient on hemodialysis. I will continue to monitor the patient's renal function. However, I have explained to the patient if I do not see any renal recovery by the end of this week he might need to start hemodialysis. 2. Infected right foot ulcer with gangrene. Patient needs a diagnostic angiogram of the right lower extremity. It is okay to do the angiogram if he would get less than 5 mL of contrast. He can be hydrated with 250 mL of normal saline before the contrast study. He continues to be on Augmentin 500 mg by mouth daily. Infectious disease has discussed the case already with vascular surgery and podiatry patient might need metatarsal amputation. 3. Hypertension. Blood pressure is acceptable. Continue current dose of metoprolol and amlodipine. 4. Lower extremity edema. Patient still has 1+ edema on the lower extremity. I would avoid giving the patient diuretic at this point. He is recovering from renal failure and he is making more than 2 liters of urine every day.
--- NOTE | 2018-09-23 13:07 | IPN ---
DATE: 09/23/2018 The patient is seen and examined at the bedside. He denies overnight complaints. He just had angiogram performed by Dr. Elizabeth earlier today. Vital signs are reviewed. He has remained afebrile. Labs are reviewed. White blood cell count is 8.9, hemoglobin is 11.9, creatinine is 5.22, most recent CRP is 7.57. LOWER EXTREMITY EXAMINATION: The 5th toe is now near fully necrotic due to ischemia. Further dysvascular changes to the 4th toe as well as the periphery of the lateral wound. No purulence or malodor is noted. ASSESSMENT: 63-year-old male with diabetes, peripheral vascular disease (PVD), abscess right foot. PLAN: Discussed with Dr. Elizabeth, he states he does not presently have the blood flow for transmetatarsal amputation and would not be able to heal this procedure. There is occluded posterior tibial artery that he plans this week to attempt to open to improve bloodflow. Will hold off amputation presently as foot is stable from infection stand point, and the wound and necrosis is primarily vascular in nature at present. Once vascular procedure completed further amputation will be planned depending on results. Will follow. [facility]
[2018-09-23] MEDS: SANTYL OINT 30GM TOP SCH (13:37)
[2018-09-23] MEDS ORDERED: NS 1,000 ML IV SCH (14:00)
[2018-09-23 19:10] LABS: APPEARANCE, URINE HAZY (CLEAR); BACTERIA, URINE AUTO 1+ (NEGATIVE); BILIRUBIN, URINE AUTO NEGATIVE (NEGATIVE); BLOOD, URINE BLOOD 3+ (NEGATIVE); COLOR, URINE YELLOW (YELLOW); GLUCOSE, URINE (UA) AUTO NEGATIVE (NEGATIVE); KETONE, URINE AUTO NEGATIVE (NEGATIVE); LEUKOCYTE ESTERASE, URINE AUTO TRACE (NEGATIVE); MUCUS, URINE SMALL (NEGATIVE); NITRITE, URINE AUTO NEGATIVE (NEGATIVE); PROTEIN, URINE AUTO 2+ mg/dL (NEGATIVE); RBC, URINE AUTO TNTC /HPF (0-3); SQUAMOUS EPITHELIAL CELL UR AU 0 /HPF (0-6); UROBILINOGEN, URINE AUTO 0.2 mg/dL (0.0-2.0); WBC, URINE AUTO 5 /HPF (0-3)
--- NOTE | 2018-09-23 19:27 | IPNPDOC ---
Date Seen The patient was seen on 09/23/18. Progress Note HPI: This is a 63-year-old who has apparently not had primary care for the last 40 years, who presented 09/07/18 with chief complaint of right foot wound that had been worsening for the last several days. Patient had reported that after he took off his sock, he noticed red blood spots on his sock. He then noticed a wound on his right lateral foot. He was seen in the ED and admitted with seps is and Rt foot wound. The pt was seen by wound care and Podiatry S/P debridement of his wounds 09/10 and 09/17/18. The pt is followed as per ID, Dr Celis. Nephrology consulted for SHANITA. Vascular surgery is consulted for further evaluation of RLE wound. The pt denies pain at this time, or any symptoms at this time, but urine in marie is pink, he denied any gross hematuria, hematochezia, hemoptysis or hematemesis. Denies any fevers, chills, Headache, CP, SOB, cough, palpitations, abdominal pain, N/V/D or changes in bowel or bladder habits. He is s/p angiogram today Foot XR Lateral soft tissue ulcer in the midfoot with no radiographic evidence of osteomyelitis. No acute fracture or dislocation. Electronically Signed by Jeffery Mcnally MD 09/08/2018 09:16 A Foot MRI Noncontrast study shows the lateral forefoot soft tissue irregularity and edema. No abscess or evidence of osteomyelitis seen. Electronically Signed by Greyson Anaya MD 09/09/2018 11:27 A Objective Physical exam Gen: NAD, healthy appearing , obese HEENT: normocephalic, atraumatic, no discharge from ears or nose, no oropharyngeal erythema or exudate, neck is supple, no lymphadenopathy, trachea midline CVS: RRR, normal S1n S2, no murmur, rubs, or gallops, +3 pitting edema in lower extremities, no jvd Resp: LCTAB, no rhonchi, wheezes or crackles Abd : soft nontender, normal bowel sounds, no rebound tenderness or guarding MSK: no swelling, full range of motion, strength 5/5, right 4 and 5 th digits h as dry gangrene, could not palpate dp or PT pulses possible due to edema Neuro: AOAx3, no confusion, no focal deficit Psych: normal mood and affect, good judgment Assessment and plan 1. PVD The pt is reviewed and examined by Dr Elizabeth, vascular surgery. RLE arterial U/S 09/18/18 indicated monophasic distal IRON CUTTER/MATTY, mod-signif stenosis calf. Continue IV Heparin gtt. s/p angiogram today in setting of ARF - labor and delivery nurse following- per note - will monitor renal function for now and if no improvement by the end of the week , he will consider HD Continue to monitor renal function.- daily bmp 2. Right Diabetic Foot Infection/wound with sepsis-improved - not septic today S/P debridement as per Podiatry 09/10/18, 09/17/18. Dr Suarez following. 09/17/18 ESR 107/CRP 4.50. CRP this AM 7.57 Blood culture x 2 negative MRI Foot with no evidence of osteomyelitis Cultures growing multiple organisms, Dr Celis ID following. S/P Zosyn IV x10 days, now on po Augmentin. Continue with wound care. Dr Celis recommending transmetatarsal amputation as wounds do not appear to be improving. 3. SHANITA Non oliguric ARF, pt with urine output approx 2-2.8 L per day as per I/O. ACEI on hold. s/p angiogram todaqy - s/p 1L of ivf ns S/P IV lasix for fluid overload 09/20/18. Renal U/S with no obstruction SCr >5. Nephrology following. 4. DM HgbA1c noted to be 11.0 09/07/18 Levemir/SSI. 5. Morbid obesity with possible CHELO Nocturnal oximetry also suggests underlying CHELO Plan is for sleep study after discharge 6. HTN. amlodipine/metoprolol. 7. SOB. Sat 95% on 2 LNC. Afebrile. VSS. S/P IV Lasix 09/20/18 for fluid overload. Guaiac positive and hematuria while on heparin drip There is more benefit over risk of bleeding for this patient at this time , so will c/w heparin drip and monitor vitals q4h , cbc q12 monitor for gross GI or worsened hematuria - at this time, can consider holding heparin last vitals this afternoon are - HR 72, bp 153/69 dvt ppx - on heparin drip VS, I&O, 24H, Fishbone Vital Signs/I&O Vital Signs Date Time Temp Pulse Resp B/P (MAP) Pulse Ox O2 Delivery O2 Flow Rate FiO2 09/23/18 16:00 97.2 72 16 153/69 (97) 98 2.0 09/22/18 21:00 Nasal Cannula I&O- Last 24 Hours up to 6 AM 09/23/18 06:00 Intake Total 3240 ml Output Total 3250 ml Balance -10 ml Laboratory Data 24H LABS Laboratory Tests 2 09/22/18 20:02: Bedside Glucose (Misc Panel) 184H 09/23/18 05:18: Nucleated Red Blood Cells % (auto) 0.0, Activated Partial Thromboplast Time 97.6H, Anion Gap 10, Glomerular Filtration Rate 12.0L, Blood Urea Nitrogen 98H, Creatinine 5.22H, Sodium Level 130L, Potassium Level 5.0, Chloride Level 98, Carbon Dioxide Level 22, Calcium Level 7.7L, C-Reactive Protein, Quantitative 7.57H 09/23/18 12:51: Bedside Glucose (Misc Panel) 132H 09/23/18 16:29: Bedside Glucose (Misc Panel) 171H 09/23/18 18:49: Urine Appearance HAZY, Urine Color YELLOW, Urine pH 5.0, Urine Specific [place] 1.010, Urine Protein 2+H, Urine Glucose (UA) NEGATIVE, Urine Ketones NEGATIVE, Urine Urobilinogen 0.2, Urine Bilirubin NEGATIVE, Urine Leukocyte Esterase TRACEH, Urine Blood 3+H, Urine Nitrite NEGATIVE, Urine WBC (Auto) 5H, Urine RBC (Auto) TNTCH, Urine Hyaline Casts (Auto) 0, Urine Bacteria (Auto) 1+H, Urine Squamous Epithelial Cells 0, Urine Mucus (Auto) SMALL, Urine Sperm (Auto) CBC/BMP Laboratory Tests 09/23/18 05:18 Red Blood Count 3.82 L, Mean Corpuscular Volume 92.7, Mean Corpuscular Hemoglobin 31.2, Mean Corpuscular Hemoglobin Concent 33.6, Red Cell Distribution Width 11.9, Calcium Level 7.7 L Microbiology Microbiology 09/23/18 Stool Occult Blood (SHEILA) - Final, Complete 09/21/18 Stool Occult Blood (SHEILA) - Final, Complete SANGEETHA LARA MD Sep 23, 2018 19:27
--- NOTE | 2018-09-23 21:29 | IPNPDOC ---
Subjective Date Seen The patient was seen on 09/23/18. Subjective Chief Complaint/HPI right foot gangrene General: Reports: Other Symptoms (fatigue) Pulmonary: Reports: Other Symptoms (no cough or sob) Cardiovascular: Reports: Edema (b/l feet swelling), Other Symptoms (no CP ) Gastrointestinal: Reports: Other Symptoms (no n/v or diarrhea) Musculoskeletal: Reports: Back Pain (from laying flat on bed after angiogram, chronic back pain history), Foot Pain (right foot) Objective Physical Examination General Exam: Positive: Alert, Cooperative, No Acute Distress ENT Exam: Positive: Atraumatic, Mucous membr. moist/pink Neck Exam: Negative: JVD Chest Exam: Positive: Clear to auscultation, Normal air movement Heart Exam: Positive: Rate Normal, Normal S2 Abdomen Exam: Positive: Soft; Negative: Tenderness Extremity Exam: Positive: Tenderness Skin Exam: Positive: Other skin issue (wound measures 9.0 cm x 9.5 cm on the dorsum of the right foot. There was an area of necrosis on the medial aspect of the wound. There is a necrotic fifth right toe and dusky fourth toe of right foot. The extensor tendons are exposed, clean wound that doesn't appear infected. ) Psych Exam: Positive: Oriented x 3 Assessment /Plan Assessment IMPRESSION & PLAN: 1. Gangrene of the right foot with gangrenous toe, complicated skin and soft tissue infection. The patient is s/p 10 days of IV Zosyn and has been switched to by mouth Augmentin to cover for group B Streptococcus and Staphylococcus coagulase negative which he continues on today. I do not see any improvement in the wound today, seems similar to yesterday. I do not expect recovery of this foot. He will definitely need a transmetatarsal amputation. He underwent angiogram of right lower extremity today and apparently there was occlusion of right posterior tibial artery, plan is to possibly perform stent to restore flow to right foot so amputation with podiatry can take place. The patient was informed. If the patient undergoes transmetatarsal amputation I would definitely switch him to IV antibiotics perioperatively. CRP elevated today to 7.57 likely secondary to gangrene of right foot. 2. Peripheral vascular disease. The patient is s/p angiogram today as discussed above. 3. Insulin-dependent diabetes. Glucose has been between 156 and 250. Plan/VTE VTE Prophylaxis Ordered?: Yes VS, I&O, 24H, Marilyn Vital Signs/I&O Vital Signs Date Time Temp Pulse Resp B/P (MAP) Pulse Ox O2 Delivery O2 Flow Rate FiO2 09/23/18 20:56 76 162/70 09/23/18 20:56 20 98 2.0 09/23/18 16:00 97.2 09/22/18 21:00 Nasal Cannula I&O- Last 24 Hours up to 6 AM 09/23/18 06:00 Intake Total 3240 ml Output Total 3250 ml Balance -10 ml Laboratory Data 24H LABS Laboratory Tests 2 09/23/18 05:18: Nucleated Red Blood Cells % (auto) 0.0, Activated Partial Thromboplast Time 97.6H, Anion Gap 10, Glomerular Filtration Rate 12.0L, Blood Urea Nitrogen 98H, Creatinine 5.22H, Sodium Level 130L, Potassium Level 5.0, Chloride Level 98, Carbon Dioxide Level 22, Calcium Level 7.7L, C-Reactive Protein, Quantitative 7.57H 09/23/18 12:51: Bedside Glucose (Misc Panel) 132H 09/23/18 16:29: Bedside Glucose (Misc Panel) 171H 09/23/18 18:49: Urine Appearance HAZY, Urine Color YELLOW, Urine pH 5.0, Urine Specific [place] 1.010, Urine Protein 2+H, Urine Glucose (UA) NEGATIVE, Urine Ketones NEGATIVE, Urine Urobilinogen 0.2, Urine Bilirubin NEGATIVE, Urine Leukocyte Esterase TRACEH, Urine Blood 3+H, Urine Nitrite NEGATIVE, Urine WBC (Auto) 5H, Urine RBC (Auto) TNTCH, Urine Hyaline Casts (Auto) 0, Urine Bacteria (Auto) 1+H, Urine Squamous Epithelial Cells 0, Urine Mucus (Auto) SMALL, Urine Sperm (Auto) 09/23/18 19:43: Bedside Glucose (Misc Panel) 227H 09/23/18 20:06: Bedside Glucose (Misc Panel) 264H CBC/BMP Laboratory Tests 09/23/18 05:18 Red Blood Count 3.82 L, Mean Corpuscular Volume 92.7, Mean Corpuscular Hemoglobin 31.2, Mean Corpuscular Hemoglobin Concent 33.6, Red Cell Distribution Width 11.9, Calcium Level 7.7 L Microbiology Microbiology 09/23/18 Stool Occult Blood (SHEILA) - Final, Complete 09/21/18 Stool Occult Blood (SHEILA) - Final, Complete GME ATTESTATION GME ATTESTATION My faculty preceptor for this patient encounter was physically present during the encounter and was fully available. All aspects of the patient interview, examination, medical decision making process, and medical care plan development were reviewed and approved by the faculty preceptor. The faculty preceptor is aware and concurs with the plan as stated in the body of this note and will attest to such by his/her cosignature. MARISOL WILLIAMSON DO Sep 23, 2018 21:29
[2018-09-23 23:09] LABS: HEMATOCRIT 30.9 % (42.0-52.0); HEMOGLOBIN 10.3 g/dl (13.5-17.5); MEAN CORPUSCULAR HEMOGLOBIN 31.2 pg (27.0-33.0); MEAN CORPUSCULAR HGB CONC 33.3 g/dl (32.0-36.5); MEAN CORPUSCULAR VOLUME 93.6 fl (80.0-96.0); PLATELET COUNT, AUTOMATED 276 10^3/uL (150-450); WHITE BLOOD COUNT 14.1 10^3/uL (4.0-10.0)
[2018-09-24] VITALS (44 sets, daily range): BP systolic 69–180; BP diastolic 30–90; O2SAT 93
[2018-09-24] MEDS: GASTROGRAFIN SOLUTION 30ML PO SCH ×2 (01:42→02:33)
[2018-09-24] MEDS ORDERED: VANCOMYCIN HCL 1,000 MG, VIAL MATE ADAPTER 1 EACH in D5W 250 ML IV ONE ×2 (04:30→06:00)
[2018-09-24] MEDS ORDERED: VANCOMYCIN INTERMITTENT/PULSE DOSING BY CLINICAL PHARMACIST PER DOSING PROTOCOL XX SCH (04:45)
--- NOTE | 2018-09-24 04:48 | PHACANCOPD ---
PHARMACY VANCOMYCIN DOSING Pt Demographics Demographics Patient Age:63 , Weight:137.000 , Gender: male Adjusted Body Weight Date: 09/08/18, Adjusted Body Weight: [98.6] Kg Events Past 24 Hours Events Past 24 Hours: NO: Dialysis, Diuretic Therapy, Change in CrCl, Fever, Elevation in WBC, Pending Diagnostics, Pending Procedures, Other Vancomycin Vancomycin indication: DIABETIC FOOT INFECTION Vancomycin Target Ranges: 10-20 mcg/ml Vancomycin Load Y/N: Yes Load Dose Date Time Vancomycin Load Dose: 2GM Date: 09-24 Time: 0500 Vancomycin Dose Date: 09/24/18. Current Vancomycin Dose: Intermittent Dosing?: Yes Labs Labs Item Value Date Time White Blood Count 14.1 10^3/uL H 09/23/18 2248 Fasting Glucose 167 MG/DL H 09/23/18 0518 Glomerular Filtration Rate 12.0 L 09/23/18 0518 Creatinine 5.22 MG/DL H 09/23/18 0518 Blood Urea Nitrogen 98 MG/DL H 09/23/18 0518 Vital Signs Label Value Date Time Patient Temperature 95.4 degrees F 09/24/18 0341 Temperature Source Temporal 09/24/18 0341 Micro Microbiology 09/23/18 Stool Occult Blood (SHEILA) - Final, Complete 09/21/18 Stool Occult Blood (SHEILA) - Final, Complete Creatinine Clearance Date:. Creatinine Clearance: [15].CALCULATED Pending Labs Random level 04-10 in am Assessment and Plan Maintaining Current Dose?: Yes Reason for dose change: No Dose Change Pharmacist Note Pharmacist Note Date: . Pharmacist note:Will dose patient based on levels. Will monitor and dose as needed. PHILL CAMACHO [facility] Sep 24, 2018 04:48
[2018-09-24] MEDS ORDERED: NOREPINEPHRINE 4 MG/4 ML AMP As Ordered ONE (04:55)
[2018-09-24] MEDS ORDERED: NS 500 ML IV ONE ×2 (05:00→05:30)
[2018-09-24 05:05] LABS: HEMATOCRIT 26.4 % (42.0-52.0); HEMOGLOBIN 8.7 g/dl (13.5-17.5); MEAN CORPUSCULAR HEMOGLOBIN 31.5 pg (27.0-33.0); MEAN CORPUSCULAR VOLUME 95.7 fl (80.0-96.0); PLATELET COUNT, AUTOMATED 251 10^3/uL (150-450); RED BLOOD COUNT 2.76 10^6/uL (4.30-6.10); WHITE BLOOD COUNT 16.8 10^3/uL (4.0-10.0)
[2018-09-24 05:14] LABS: ABG BASE EXCESS -16.1 (-2.0-2.0); ABG PARTIAL PRESSURE CO2 53.7 mmHg (35.0-45.0); ABG PARTIAL PRESSURE O2 114.4 mmHg (75.0-100.0); ABG STANDARD HCO3 11.9 MEQ/L (22.0-26.0); ABG TOTAL CO2 15.6 MEQ/L (23.0-31.0)
[2018-09-24] MEDS ORDERED: NOREPINEPHRINE BITARTRATE 8 MG in D5W 492 ML IV SCH (05:15)
[2018-09-24 05:17] LABS: ABG pH (ARTERIAL) 7.033 UNITS (7.350-7.450)
[2018-09-24] MEDS ORDERED: SODIUM BICARBONATE 8.4% INJ 50 ML SYRINGE As Ordered ONE ×2 (05:23→05:24)
[2018-09-24] MEDS ORDERED: MIDAZOLAM INJ 2 MG/2 ML VIAL (J2250) As Ordered ONE (05:27)
[2018-09-24] MEDS ORDERED: ETOMIDATE INJ 20MG/10ML VIAL As Ordered ONE (05:27)
[2018-09-24] MEDS ORDERED: fentaNYL 100 MCG/2 ML INJECTION (J3010) As Ordered ONE ×3 (05:28→10:20)
[2018-09-24] MEDS ORDERED: SODIUM BICARBONATE 8.4% INJ 50 ML SYRINGE IV ONE (05:30)
[2018-09-24] MEDS ORDERED: NS 1,000 ML IV ONE (05:30)
[2018-09-24] MEDS ORDERED: PROPOFOL 1,000 MG/100 ML VIAL As Ordered ONE (05:37)
[2018-09-24 05:38] LABS: BLOOD UREA NITROGEN 105 MG/DL (7-18); CALCIUM LEVEL 7.3 MG/DL (8.8-10.2); CARBON DIOXIDE LEVEL 18 MEQ/L (21-32); CHLORIDE LEVEL 95 MEQ/L (98-107); CREATININE FOR GFR 5.99 MG/DL (0.70-1.30); GLOMERULAR FILTRATION RATE 10.2 (>49); GLUCOSE, FASTING 339 MG/DL (70-100); MAGNESIUM LEVEL 2.4 MG/DL (1.8-2.4); SODIUM LEVEL 127 MEQ/L (136-145)
[2018-09-24] MEDS ORDERED: MIDAZOLAM INJ 2 MG/2 ML VIAL (J2250) IV STA (05:40)
[2018-09-24] MEDS ORDERED: SODIUM BICARBONATE 8.4% INJ 50 ML SYRINGE IV STA ×4 (05:40→12:50)
[2018-09-24] MEDS ORDERED: ETOMIDATE INJ 20MG/10ML VIAL IV STA (05:40)
[2018-09-24] MEDS ORDERED: fentaNYL 100 MCG/2 ML INJECTION (J3010) IV ONE ×3 (05:45→15:30)
[2018-09-24] MEDS: PROPOFOL 1,000 MG in APPROPRIATE DILUENT 1 EA IV SCH ×2 (05:45→10:02)
[2018-09-24] MEDS: SODIUM CHLORIDE 0.9% INJ 10 ML SYR IV SCH (06:00)
[2018-09-24 06:09] LABS: CPK CREATINE PHOSPHOKINASE 27 U/L (39-308); MB/CK RELATIVE INDEX 8.52 (< OR =4); PHOSPHORUS LEVEL 9.4 MG/DL (2.5-4.9); POTASSIUM SERUM 7.7 MEQ/L (3.5-5.1); TROPONIN I < 0.02 NG/ML (< 0.10)
--- NOTE | 2018-09-24 06:09 | IPNPDOC ---
Date Seen The patient was seen on 09/24/18. Progress Note INTERIM PROGRESS NOTE: I was called by patient's nurse on [address] around 2200 to assess the patient. She felt he was diaphoretic and increasingly pale and lethargic. On my exam I found the patient's temperature to be 92, blood pressure 124/52, heart rate 72. His oxygen saturation on room air was 98%. The patient was not complaining of any pain, however, his abdomen was very distended. His lungs were clear to auscultation bilaterally, his heart was RRR without any murmurs/rubs/gallops. His R foot looked very necrotic, which I am told was stable, per nursing. He had no peripheral edema and no neuro deficits that I could ascertain. Nursing was advised to update me with any changes with the patient. During the next 2 hours, the patient's blood pressure continued to fall and he was transferred to the PCU and then to the ICU for escalation of management. Both myself and my attending Dr. Rodgers were made aware of this. A STAT CT abdomen and pelvis with oral contrast was ordered. On the CT he was found to have a large left peritoneal hematoma. Dr. Elizabeth was contacted as the patient had undergone an angiogram earlier in the day yesterday, and I felt he had septic shock from his gangrenous foot or a complication from his procedure. Dr. Elizabeth recommended blood transfusion to increase volume status in order to tampanade the hematoma. Three units of packed red blood cells were ordered from the blood bank. While in the ICU, the patient became more lethargic and unresponsive and had bradycardia down in the 30s with systolic blood pressure in the 70s. He was started on a Levophed drip and was given IV fluid boluses. An ABG demonstrated metabolic acidosis with a pH 7.033, PCO2 53.7, PO2 114. The ICU bottle capper was consulted for central line placement and intubation, with possible arterial line placement for continuous blood pressure management. The patient's lactic acid was found to be 6.6 and he was started on vancomycin and meropenem. Blood cultures were drawn, as well as CBC, BMP, Cardiac Panel and procalcitonin. VS, I&O, 24H, Fishbone Vital Signs/I&O Vital Signs Date Time Temp Pulse Resp B/P (MAP) Pulse Ox O2 Delivery O2 Flow Rate FiO2 4/10/19 05:47 61 25 60 09/24/18 03:41 95.4 87/43 (58) 98 2.0 09/23/18 21:00 Nasal Cannula I&O- Last 24 Hours up to 6 AM 09/24/18 06:00 Intake Total 1060 ml Output Total 900 ml Balance 160 ml Laboratory Data 24H LABS Laboratory Tests 2 09/23/18 12:51: Bedside Glucose (Misc Panel) 132H 09/23/18 16:29: Bedside Glucose (Misc Panel) 171H 09/23/18 18:49: Urine Appearance HAZY, Urine Color YELLOW, Urine pH 5.0, Urine Specific False Pass 1.010, Urine Protein 2+H, Urine Glucose (UA) NEGATIVE, Urine Ketones NEGATIVE, Urine Urobilinogen 0.2, Urine Bilirubin NEGATIVE, Urine Leukocyte Esterase TRACEH, Urine Blood 3+H, Urine Nitrite NEGATIVE, Urine WBC (Auto) 5H, Urine RBC (Auto) TNTCH, Urine Hyaline Casts (Auto) 0, Urine Bacteria (Auto) 1+H, Urine Squamous Epithelial Cells 0, Urine Mucus (Auto) SMALL, Urine Sperm (Auto) 09/23/18 19:43: Bedside Glucose (Misc Panel) 227H 09/23/18 20:06: Bedside Glucose (Misc Panel) 264H 09/23/18 22:48: Nucleated Red Blood Cells % (auto) 0.0, C-Reactive Protein, Quantitative 6.81H 09/24/18 04:45: Nucleated Red Blood Cells % (auto) 0.0, Anion Gap 14, Glomerular Filtration Rate 10.2L, Lactic Acid Level 6.6*H, Blood Urea Nitrogen 105H, Creatinine 5.99H, Sodium Level 127L, Chloride Level 95L, Carbon Dioxide Level 18L, Calcium Level 7.3L, Magnesium Level 2.4 09/24/18 05:06: Blood Gas Bicarbonate Standard 11.9L, Arterial Blood pH 7.033*L, Arterial Blood Partial Pressure CO2 53.7H, Arterial Blood Partial Pressure O2 114.4H, Arterial Blood Total CO2 15.6L, Arterial Blood HCO3 14.0L, Arterial Blood Base Excess - 16.1L, Arterial Blood Oxygen Saturation 96.0 CBC/BMP Laboratory Tests 09/23/18 22:48 Red Blood Count 3.30 L, Mean Corpuscular Volume 93.6, Mean Corpuscular H emoglobin 31.2, Mean Corpuscular Hemoglobin Concent 33.3, Red Cell Distribution Width 11.9 09/24/18 04:45 Red Blood Count 2.76 L, Mean Corpuscular Volume 95.7, Mean Corpuscular Hemoglobin 31.5, Mean Corpuscular Hemoglobin Concent 33.0, Red Cell Distribution Width 12.1, Calcium Level 7.3 L Microbiology Microbiology 09/23/18 Stool Occult Blood (SHEILA) - Final, Complete 09/21/18 Stool Occult Blood (SHEILA) - Final, Complete GME ATTESTATION GME ATTESTATION My faculty preceptor for this patient encounter was physically present during the encounter and was fully available. All aspects of the patient interview, examination, medical decision making process, and medical care plan development were reviewed and approved by the faculty preceptor. The faculty preceptor is aware and concurs with the plan as stated in the body of this note and will attest to such by his/her cosignature. LUCA DOWLING MD Sep 24, 2018 06:09
[2018-09-24] MEDS ORDERED: HumuLIN R (REGULAR) INSULIN (NovoLIN R) **100U/ML** PER UNIT IV STA (06:10)
[2018-09-24] MEDS ORDERED: DEXTROSE 50% 50 ML SYRINGE IV STA (06:10)
[2018-09-24] MEDS ORDERED: DESMOPRESSIN ACETATE IV STA ×2 (06:12→06:27)
[2018-09-24] MEDS ORDERED: NS IV STA ×2 (06:12→06:27)
[2018-09-24] MEDS ORDERED: CALCIUM GLUCONATE 1,000 MG in D5W MINI-BAG PLUS 100 ML IV ONE (06:15)
[2018-09-24] MEDS ORDERED: CALCIUM GLUCONATE 1,000MG/10ML VIAL (100MG/ML) (J0610) As Ordered ONE (06:16)
[2018-09-24] MEDS ORDERED: SODIUM BICARBONATE 150 MEQ in D5W 1,000 ML IV SCH (06:30)
[2018-09-24 07:00] LABS: ABG BASE EXCESS -17.8 (-2.0-2.0); ABG HCO3 6.9 MEQ/L (22.0-26.0); ABG O2 SATURATION 97.8 % (95.0-99.0); ABG PARTIAL PRESSURE O2 137.9 mmHg (75.0-100.0); ABG STANDARD HCO3 10.1 MEQ/L (22.0-26.0); ABG TOTAL CO2 7.3 MEQ/L (23.0-31.0); ABG pH (ARTERIAL) 7.332 UNITS (7.350-7.450)
[2018-09-24 07:01] LABS: ABG PARTIAL PRESSURE CO2 13.3 mmHg (35.0-45.0)
--- NOTE | 2018-09-24 07:27 | REP ---
Portable chest, 04:20 a.m., single AP upright view: Comparison is 09/20/2018. The the interstitial coarsening identified previously has resolved. The The lung [place] are clear. Cardiac size is normal. There is a nasogastric tube terminating satisfactorily in the upper abdomen, the precise location of the distal tip is excluded at the inferior film margin. There is a right upper extremity PICC line terminating in the superior vena cava at the confluence of the right atrium, unchanged. Impression: The previous interstitial infiltrates have resolved. There has been interval placement of a nasogastric tube. Right upper extremity PICC line is unchanged. Electronically Signed by Jeffery Henley MD 09/24/2018 07:18 A
--- NOTE | 2018-09-24 07:34 | REP ---
Portable chest, 06:12 a.m., single AP upright view: Comparison is an 04:28 a.m. earlier today. The lung rebol[place]o remain clear. Cardiac size is normal. The nasogastric tube terminates in the gastric fundus in satisfactory position. The right upper extremity PICC line is unchanged. Electronically Signed by Jeffery Henley MD 09/24/2018 07:25 A
--- NOTE | 2018-09-24 07:59 | REP ---
CT of the abdomen and pelvis with bowel contrast, without IV contrast: Comparisons are the chest CT dated 09/12/2018 and renal ultrasound dated 09/10/2018. There is a large left retroperitoneal hematoma extending from the lower pole of the left kidney inferiorly along the anterior margin of the psoas muscle into the pelvis and into a left inguinal hernia. The the hematoma measures 32 cm craniocaudad by 16 cm AP by 9 cm transversely. There are bilateral pleural effusions. The right pleural effusion is unchanged from a chest CT of 09/12/2018. There is a small left pleural effusion, not present on 09/12/2018. The dome of the liver is excluded from the study. There is significant beam-hardening artifact from the patient's arms, the patient scanned with arms at sides. The unenhanced hepatic parenchyma is unremarkable. There are tiny calculi versus sludge in the dependent portion of the gallbladder. The gallbladder is otherwise unremarkable. There is no biliary duct dilatation. The pancreas and spleen are unremarkable. The bowel contrast remains in the stomach and has not reached the small bowel at the time of scanning. The stomach appears distended. The The small bowel is unremarkable. The distal colon demonstrates diverticulosis without diverticulitis. The adrenals are unremarkable. The unenhanced kidneys are unremarkable. Pelvis: The appendix is unremarkable. There is a Toussaint catheter in the bladder. The bladder is displaced to the right by the retroperitoneal hematoma. The bladder is nondistended. There is no pelvic ascites. There is no retroperitoneal or mesenteric adenopathy. The abdominal aorta is unremarkable. Impression: Large left retroperitoneal hematoma extending into the pelvis and into a left inguinal hernia. Small bilateral pleural effusions as described. Gastric distension as described. No bowel distension. Toussaint catheter. Stat preliminary emergency interpretation is given after-hours by Mary Kay Garg MD of [facility]. Electronically Signed by Jeffery Henley MD 09/24/2018 07:50 A
[2018-09-24] MEDS ORDERED: VASOPRESSIN INJ 20 UNITS in NS 499 ML IV SCH (08:00)
[2018-09-24] MEDS ORDERED: MEROPENEM INJ 500 MG in APPROPRIATE DILUENT 1 EA IV SCH (08:00)
--- NOTE | 2018-09-24 08:19 | IPN ---
DATE OF SERVICE: 09/24/2018 I received a call during the night from the resident who had been seeing the patient at the request of nursing due to increasing lethargy. Overnight, patient became less responsive and had large drop in blood pressure. He was ultimately transferred to the intensive care unit. Patient currently being treated with Levophed, fluids. He is receiving packed blood cells. He has been started on broad-spectrum antibiotics vancomycin and meropenem. There was concern that there was further infection causing sepsis from his foot, which is the only identifiable source of infection presently. On exam, patient is sedated on a ventilator unresponsive to any questioning or testing. The right foot is examined, wound is unchanged in appearance from yesterday. No evidence of malodor or purulence. Foot is generally ischemic, which is worsened from yesterday. Foot is cold to touch. ASSESSMENT: 63-year-old diabetic male in apparent septic shock stemming from his right foot. I discussed the patient with the aerodynamics teacher. Initial plan was for Dr. Elizabeth to address occluded vessel to improve chances of healing of amputation. Presently, it now looks like foot will require amputation first to remove gangrenous portions of foot and deal with the blood flow thereafter. Will plan to perform this once patient is more stable for the operating room. Will continue to follow, possible surgery tomorrow if stable or thereafter. Addendum: Patient discussed with Dr. Elizabeth who has examined foot after myself. He believes that the foot ischemia has worsened to where transmetatarsal is no longer viable. Due to severe nature of sepsis he plans to perform leg amputation today. [facility] CENTERMadelaine
[2018-09-24] MEDS: SANTYL OINT 30GM TOP SCH (09:00)
[2018-09-24] MEDS: METOPROLOL TART 25 MG TABLET PO SCH (09:00)
[2018-09-24] MEDS ORDERED: NOREPINEPHRINE BITARTRATE 16 MG in D5W 484 ML IV SCH (09:00)
[2018-09-24] MEDS ORDERED: CHLORHEXIDINE GLUCONATE 0.12 % 15ML UDC (PERIDEX ORAL RINSE) MT SCH (09:00)
[2018-09-24 09:04] LABS: ABG BASE EXCESS -13.3 (-2.0-2.0); ABG HCO3 11.5 MEQ/L (22.0-26.0); ABG PARTIAL PRESSURE CO2 23.7 mmHg (35.0-45.0); ABG PARTIAL PRESSURE O2 158.2 mmHg (75.0-100.0); ABG TOTAL CO2 12.2 MEQ/L (23.0-31.0); ABG pH (ARTERIAL) 7.303 UNITS (7.350-7.450)
[2018-09-24] MEDS ORDERED: INSULIN IV RATE CHANGE DOCUMENTATION ML/HR XX SCH (09:15)
[2018-09-24] MEDS ORDERED: LIDOCAINE 2% MDV 20 ML VIAL As Ordered ONE (09:17)
[2018-09-24] MEDS ORDERED: LIDOCAINE 2% MDV 20 ML VIAL SC ONE (09:30)
[2018-09-24 09:49] LABS: CALCIUM LEVEL 6.8 MG/DL (8.8-10.2); CREATININE FOR GFR 5.82 MG/DL (0.70-1.30); GLOMERULAR FILTRATION RATE 10.6 (>49); POTASSIUM SERUM 7.2 MEQ/L (3.5-5.1)
[2018-09-24] MEDS ORDERED: HEPARIN 1,000 UNITS/ML 10ML VIAL (FOR RADIOLOGY& DIALYSIS ONLY) IV PRN ×2 (10:00)
[2018-09-24] MEDS ORDERED: PROPOFOL 200 MG/20 ML VIAL As Ordered ONE (10:17)
[2018-09-24] MEDS ORDERED: MIDAZOLAM INJ 5 MG/ML VIAL (J2250) As Ordered ONE (10:20)
[2018-09-24] MEDS ORDERED: LIDOCAINE 1% SDV INJ 30 ML VIAL As Ordered ONE (10:21)
[2018-09-24] MEDS ORDERED: BUPIVACAINE HCL 0.5% 30 ML VIAL As Ordered ONE (10:22)
[2018-09-24] MEDS ORDERED: INSULIN HUMAN REGULAR 100 UNITS in NS 99 ML IV SCH (11:00)
[2018-09-24 11:07] LABS: MAGNESIUM LEVEL 2.3 MG/DL (1.8-2.4)
[2018-09-24 11:14] LABS: HEMATOCRIT 29.5 % (42.0-52.0); HEMOGLOBIN 9.9 g/dl (13.5-17.5); MEAN CORPUSCULAR HGB CONC 33.6 g/dl (32.0-36.5); MEAN CORPUSCULAR VOLUME 92.5 fl (80.0-96.0); PLATELET COUNT, AUTOMATED 209 10^3/uL (150-450); RED BLOOD COUNT 3.19 10^6/uL (4.30-6.10)
[2018-09-24 11:23] LABS: INR 2.2; PROTHROMBIN TIME 24.9 SECONDS (12.1-14.4)
[2018-09-24 11:24] LABS: PARTIAL THROMBOPLASTIN TIME 48.2 SECONDS (25.4-37.6)
[2018-09-24 11:32] LABS: WHITE BLOOD COUNT 31.4 10^3/uL (4.0-10.0)
[2018-09-24] MEDS ORDERED: SODIUM BICARBONATE 4.2% INJ 10 ML SYRINGE IV STA (11:48)
--- NOTE | 2018-09-24 12:14 | REP ---
Portable chest x-ray: Single view. 09:55 a.m. film. History: Intubated patient. Line placement. Comparison study: September 24, 2018 at 06:12 a.m. Findings: Endotracheal tube remains in good position at the level of proximal clavicles. An NG tube enters left upper quadrant of the abdomen. EKG electrodes are seen. A left internal jugular central venous line has been inserted with its tip in the expected location of the superior vena cava. A right IJ and a right-sided PICC line are noted terminating in the expected location of the SVC as well. The lungs are hypoinflated as before with bibasilar discoid atelectasis. There is no evidence of pneumothorax. No focal infiltrate. Electronically Signed by Greyson Anaya MD 09/24/2018 10:23 A
[2018-09-24 12:35] LABS: TROPONIN I 0.02 NG/ML (< 0.10)
--- NOTE | 2018-09-24 13:29 | RO ---
DATE OF PROCEDURE: 09/24/2018 Endotracheal intubation. The procedure was done earlier in the morning of ground 5:30 a.m. INDICATION: Respiratory failure. PREPROCEDURE DIAGNOSES: Septic shock and metabolic acidosis. POSTPROCEDURE DIAGNOSIS: Septic shock and metabolic acidosis. ATTENDING PHYSICIAN: Miranda Catalan MD TELETYPE MECHANIC: CONSENT: Procedure was performed emergently and due to the emergent nature of the procedure consent was implied. DICTATION CUT OFF
--- NOTE | 2018-09-24 14:58 | RO ---
DATE OF PROCEDURE: 09/24/2018 The procedure was performed early this morning around 5:30 a.m. PROCEDURE: Endotracheal intubation. INDICATION: Respiratory failure. PREPROCEDURE DIAGNOSES: Septic shock and metabolic acidosis. POSTPROCEDURE DIAGNOSES: Septic shock and metabolic acidosis. ATTENDING PHYSICIAN: Miranda Catalan MD The procedure was performed emergently, and consent was implied due to the emergent nature of the procedure. The patient's sister was informed about the procedure prior to intubation. PROCEDURE SUMMARY: A time-out was performed. My hands were washed immediately prior to the procedure. The patient was placed on a ad trafficker, including continuous pulse oximetry. Rapid sequence intubation was conducted. The patient received 30 mg of etomidate,50 mg of fentanyl, and 2 mg of Versed for induction. Using a GlideScope with a size 4 scope and a size 8 endotracheal tube with stylet, the patient was intubated on the first pass attempt. The stylet was removed, and a balloon was inflated. Appropriate endotracheal tube position was confirmed by direct visualization of vocal cord passage, fogging of the tube, CO2 colorimetric indicator, and symmetric breath sounds. The tube was secured at 24 cm at the lips. Postintubation chest x-ray showed the endotracheal (ET) tube in good position. [facility]ENTERMadelaine
--- NOTE | 2018-09-24 15:01 | RO ---
DATE OF PROCEDURE: 09/24/2018 INTERNAL JUGULAR CENTRAL LINE PROCEDURE NOTE INDICATION: Vasopressor administration. PREPROCEDURE DIAGNOSIS: Septic shock. POSTPROCEDURE DIAGNOSIS: Septic shock. ATTENDING PHYSICIAN: Dr. Catalan CONSENT: The procedure was performed emergently and permission was implied due to the emergent nature of the procedure. PROCEDURE SUMMARY: A central line insertion processes form was completed by an independent observer. A time out was performed. My hands were washed immediately prior to the procedure. Full sterile technique was maintained throughout procedure including surgical cap, mask with protective eyewear, full gown and sterile gloves. The patient was placed in Trendelenburg position. The right neck region was prepped using chlorhexidine scrub and draped in sterile fashion using a fenestrated drape and a sterile probe cover was employed. Using ultrasound the right internal jugular vein was identified. Anesthesia was obtained over the vein using 1% lidocaine. Using real time out of plane guidance, the introducer needle was inserted into the internal jugular vein under direct ultrasound visualization. Venous blood was drawn. The syringe was removed and a guidewire was advanced into the introducer needle. The introducer needle was removed over the guidewire. A small incision was made at the skin surface with a scalpel and the dilator was exchanged with a Guidewire. After appropriate dilation was obtained, the dilator was exchanged over the wire for a triple lumen central venous catheter. The wire was removed in the catheter was sutured in place at 18 cm. Sterile chlorhexidine impregnated dressing was placed over the catheter at the insertion site. The patient tolerated the procedure well without any hemodynamic compromise. At the time of procedure completion, all ports were aspirated and flushed properly. Postprocedure chest x-ray showed the central line in position with the tip in superior vena cava (SVC). There is no pneumothorax noted. Estimated blood loss was minimal. MTDD
--- NOTE | 2018-09-24 15:22 | RO ---
DATE OF PROCEDURE: 09/24/2018 INDICATION: Shock, hemodynamic monitoring PREPROCEDURE DIAGNOSIS: Septic shock. POSTPROCEDURE DIAGNOSIS: Septic shock. ATTENDING PHYSICIAN: Miranda Catalan MD CONSENT: Procedure was performed emergently and the consent was implied due to the emergent nature of the procedure. The patient's sister was updated on the necessity of procedure prior to performing. PROCEDURE SUMMARY Time-out was performed. My hands were washed immediately prior to the procedure. Full sterile technique was maintained throughout the procedure including surgical cap, mask, protective eyewear, sterile gown and sterile gloves. The right femoral artery was identified using ultrasound. The right groin was prepped using chlorhexidine scrub and draped with a fenestrated drape. A sterile probe cover was used. Under direct ultrasound visualization, the right femoral artery was accessed using an introducer needle. Arterial blood was seen to pulsate into the chamber. The syringe was removed and a guidewire was advanced through the needle. The wire was then removed and an arterial catheter was advanced over the wire. The catheter was sutured in place. A sterile impregnated dressing was placed over the catheter at the insertion site. The patient tolerated procedure without any hemodynamic compromise. At time of procedure completion, the catheter was connected to the case monitor and calibrated. Appropriate waveform and blood pressure tracing was observed. Estimated blood loss than 5 mL. MTDD
--- NOTE | 2018-09-24 15:36 | CR ---
DATE OF CONSULTATION: 09/24/2018 History obtained from chart and collateral as patient was unresponsive and unable to provide a history on my examination. HPI: Mr. Early is a 63-year-old male with a past medical history of morbid obesity, recent diagnosis of diabetes. Had not been following with the physician for more than 40 years. He initially presented in the end of August with a necrotic wound on his right foot that had been there for the past few days to weeks. He had an incision, drainage, and debridement and reportedly had an episode of hypotension during the procedure. Postoperatively, the patient was noted to have acute kidney injury (SHANITA) and was being followed by nephrology. He required a second debridement surgery on 09/17/18. He was noted to have worsening renal failure postoperatively; however, he was having urine output still. He was started on intravenous (IV) Zosyn initially and later transmitted transition to Augmentin. His wound cultures were positive for group B streptococcus and staphylococcus coagulase negative. Patient appeared to have continuous worsening of the ischemia necrosis in his right foot. Vascular was consulted, and it was determined that the patient had significant peripheral vascular disease which would impact wound healing if he were to have a transmetatarsal amputation. Therefore, patient underwent an angiogram on September 23 to see if there was any possibility of stenting and improving blood flow to his lower extremity in attempt to salvage his foot for transmetatarsal amputation. He was also on heparin given his peripheral vascular disease and evidence of worsening ischemia. Post procedure, overnight, patient was noted to be increasingly diaphoretic and lethargic as well as pale. He was also complaining of some increased abdominal distension. He had worsening hypotension. Was given normal saline fluid boluses, 2 liters, with minimal improvement. He did have a CT abdomen and pelvis done, which showed a large left retroperitoneal hematoma. The patient was transferred to the intensive care unit (ICU) for further management. The patient had also been noted to be bradycardiac and had periods of apnea as well. He did not lose a pulse during this, but he did require Ambu bag ventilation. His blood pressure dropped again after IVF boluses and he was started on Levophed. He was also transfused 3 units packed red blood cells (PRBC), however continued to require Levophed and additionally vasopressin for blood pressure support. The patient's arterial blood gas (ABG) showed a severe metabolic acidosis secondary to his worsening renal failure and a lactic acidosis with an inappropriate respiratory acidosis, as he was unable to compensate for his metabolic acidosis due to likely hx of CHELO. Therefore, given his hypotension, unresponsiveness and worsening acidosis, patient was intubated. He was given bicarbonate to prior to intubation. Post intubation, the patient was started on a bicarbonate drip as well. He was given broad- spectrum antibiotics prior to this with vancomycin and meropenem. The patient had a right triple lumen placed for IV access as well as a right femoral arterial line for blood pressure monitoring. The patient was also noted to have worsening hyperkalemia and persistent acidosis despite bicarbonate administration. He was seen by renal with a plan for emergency continuous veno-venous hemodialysis (CVVH), and he was also seen by vascular with the plan for emergent guillotine amputation of his right foot, as it had been noted on examination today to have even further reduced blood flow than previous. There was suspicion that given his leukocytosis and persistent shock despite blood product administration that he was having worsening septic shock from his gangrenous foot. PAST MEDICAL HISTORY: 1. Newly diagnosed diabetes and hypertension. 2. Morbid obesity. PAST SURGICAL HISTORY: None. HOME MEDICATIONS: None. ALLERGIES: No known drug allergies. SOCIAL HISTORY: Lives at home. Is single. Has no children. Denies smoking. Has social alcohol. FAMILY HISTORY: Strong family history for diabetes. REVIEW OF SYSTEMS: Limited, as the patient was unable to provide a history. VITAL SIGNS: Temperature 96.4, pulse 55, respirations 30, blood pressure 115/51, oxygen saturation 96% on ventilator 50% FiO2. GENERAL: The patient is morbidly obese. The patient is diaphoretic and pale. Appears to be in respiratory distress with abdominal breathing The patient has pale conjunctivae. CARDIAC: Normal S1, S2, regular rate and rhythm. Distant heart sounds. No murmurs appreciated. PULMONARY: Diminished breath sounds bilaterally. ABDOMEN: Obese, soft. There is some increasing firmness in the left lower quadrant compared to the right, and abdomen appears more distended. EXTREMITIES: There is trace lower extremity edema bilaterally. The right foot has an open wound laterally as well as a wound on the bottom of foot. The 5th toe is fully necrotic, and the 4th toe appears to have some necrotic changes as well. His foot is cool, and there is significantly delayed capillary refill. LABORATORY DATA: WBC 16.8, hemoglobin was 8.7, platelets 251. Chemistry: Sodium 127, potassium 7.7, chloride 95, bicarbonate 18, BUN 105, creatinine 5.99, glucose 330, anion gap 14, lactic acid was 6.6, repeat lactic acid 9.0. PTT was greater than 240. Initial ABG with a pH of 7.033, pCO2 of 53.7, pO2 of 114.4. Post intubation ABG improved to pH 7.332, pCO2 of 13.3, and a pO2 of 137.9. Chest x-ray post intubation showed the endotracheal (ET) tube in place. There is an orogastric (OG) tube coursing below the diaphragm. There was a right internal jugular (IJ) triple lumen in place with and a peripherally inserted central catheter (PICC) with the tip in the superior vena cava (SVC). There is mild pulmonary vascular congestion and small bilateral pleural effusions. ASSESSMENT AND PLAN: Mr. Early is a 63-year-old male with a past medical history of diabetes, hypertension, suspected obstructive sleep apnea (CHELO), who initially presented with a gangrenous right foot, status post two debridements by podiatry. The patient's hospital course was also complicated by acute renal failure. Was not oliguric. He continued to have worsening ischemia of his foot and had significant peripheral vascular disease and was therefore started on a heparin drip. He also had an angiogram done to see if there were any avenues for revascularization prior to a transmetatarsal amputation. Post angiogram, patient was noted to have increasing abdominal distension as well as becoming more lethargic, diaphoretic, and hypotensive. His CT abdomen and pelvis showed a large left retroperitoneal bleed. He was given fluid boluses as well as 3 units of packed red blood cells (PRBC) with improvement in his hemoglobing, however, continued to be hypotensive, requiring Levophed and additionally asopressin for blood pressure support. He also had increasing leukocytosis and hypothermia, consistent with a diagnosis of septic shock. The patient's source was thought to be secondary to his gangrenous foot with the worsening ischemia. The patient also had severe metabolic acidosis and respiratory acidosis in the setting of lactic acid and worsening renal failure. He was intubated was placed on pressure-regulated volume control (PRVC) with improvement in his respiratory acidosis. With the bicarbonate he had improvement in his metabolic acidosis; however, his lactic acid continue to trend up. Patient was also noted to be increasing hyperglycemic and was started on an insulin drip. He became oliguric and had persistent acidosis and hyperkalemia and therefore would require emergent dialysis. Given his shock he would need continuous veno-venous hemodialysis (CVVHD). Given concern that the gangrenous foot was contributing to his worsening septic shock and renal failure the decision was made for a guillotine amputation of right foot. CVVH was started post amputation; however, he continued to be hypotensive and CVVH to had to be discontinued. The patient's sister had been updated throughout the day of his course and concerning prognosis given his multisystem organ failure. She had noted that patient would not have wanted any prolonged intubation, and he had would not have wanted cardiopulmonary resuscitation (CPR), and he was made DO NOT RESUSCITATE earlier in the day. As the patient did not have improvements with his blood pressure and continued to require maximum vasopressor support and dialysis was discontinued, we updated the sister that at this point that CVVH would have to be discontinued. She therefore understands that his prognosis is extremely poor at this time. He also had to be discontinued from sedation and was not responsive or following commands. Therefore, the sister felt that the patient would not have wanted to be prolonged on the ventilator given the extremely poor prognosis with his multisystem organ failure, and the decision was made at this time for comfort measures and a palliative extubation. The plan at this time, then, is to wait for a family member to arrive, and then the patient will be palliatively extubated to comfort measures only, and his bicarbonate infusion and his pressors will be discontinued. Deep vein thrombosis (DVT). Sequential compression devices (SCDs) thromboembolic deterrent stockings (TEDS). DO NOT RESUSCITATE/DO NOT INTUBATE. TOTAL CRITICAL CARE TIME SPENT, NOT INCLUDING ANY PROCEDURES: Approximately 2 hours and 50 minutes. MTDD
--- NOTE | 2018-09-24 19:47 | IPN ---
DATE: 09/24/2018 SUBJECTIVE: Patient was seen and examined at the bedside today morning in the ICU. The last 24 hour events are noted. The patient got decompensated overnight. Angiogram of the right lower extremity done yesterday. Postoperative course was complicated by a retroperitoneal hematoma and septic shock. Patient is currently intubated and sedate in the ICU. He is in nonoliguric renal failure at this point. He has a severe metabolic cirrhosis and severe hyperkalemia. I discussed the case today morning with the critical care attending Dr. Miranda Catalan and decision was made to get the temporary dialysis catheter placed and start the patient on hemodialysis. I saw and evaluated the patient in the morning when he was getting ready to get his right foot amputation done at the bedside by vascular surgery. Patient is unable to provide any review of systems. He is unresponsive on the vent and currently on sedation. OBJECTIVE: VITAL SIGNS: When I saw the patient in the morning his temperature was 96.6 degrees Fahrenheit, blood pressure 106/36, pulse 61, respiratory rate 30, saturating 100% on the vent with 50% FiO2. INTAKE AND OUTPUT: Urine output recorded overnight as only 60 mL. Weight in the bed scale is not available. Patient is on 2.7 liter positive fluid balance since overnight. PHYSICAL EXAMINATION: GENERAL: Patient is intubated, sedated, eyes are closed. HEAD AND NECK EXAM: Pupils are sluggish response to light. He has conjunctival pallor. He has an EGD. Neck is supple. He has a left IJ double lumen catheter for dialysis. He has a right IJ triple lumen catheter. CARDIOVASCULAR: S1, S2 regular rate 1+ edema of the bilateral lower extremities. RESPIRATORY: Decreased breath sounds at the bases, otherwise no active rales or rhonchi. ABDOMEN: Soft, obese, and positive bowel sounds. No organomegaly was noted. GENITOURINARY: He has a Toussaint catheter in place. Right groin has an arterial line. Left groin has a dressing from recent angiogram. MUSCULOSKELETAL: Patient has cold peripheral extremities. He has a very large ulcer on the right foot and his tendons are exposed including the bone. There is a large ulcer on the plantar aspect of the right foot as well. REGISTERED NURSE MIDWIFE: Patient is intubated and sedated. Does not respond to painful stimuli. SKIN: No active rashes or ulcers apart from the large ulcer on the right foot. LAB REVIEW: CBC showed a WBC of 31.4, hemoglobin is 9.9, platelets 209, INR 2.2, EGD 48.2, ABG done earlier morning showed a pH of 7.03. He was given IV bicarbonate and repeat pH is 7.30, pcO2 23, Po2 158, bicarbonate 11.5, Oxygen sat 99%. BMP showed sodium 125, potassium 7.2, chloride 94, bicarbonate 15, BUN 102, creatinine 5.8, glucose 518, lactic acid 9, calcium 6.8, phosphorus 2.3. Microbiology: Blood culture repeat are pending. IMAGING: CAT scan of the abdomen and pelvis with by mouth contrast only showed large left retroperitoneal hematoma extending into the pelvis and left inguinal hernia. Small bilateral pleural effusions. Gastric distension. No bowel distension. Chest x-ray done today morning showed no focal infiltrates. Line is in satisfactory position. CURRENT INPATIENT MEDICATIONS: Patient's medications were all reviewed by me. He is currently on Propofol drip. He is on Levophed at 27 mcg. He is on sodium bicarbonate drip. He is on vasopressin at 0.04 units. He was given a dose of DDAVP. He is on meropenem 500 mg IV every 12 hours. He was given IV fluid boluses overnight and was also given vancomycin 1 dose in the morning. He was given 10 units or regular insulin IV stat. He was given sodium bicarbonate because of acidosis. ASSESSMENT AND PLAN: 1. Shock. It is a combination of septic shock and hemorrhagic shock. Patient is currently intubated. He is on 2 pressors. He is in multiorgan failure. Critical care team is already on board. He has received broad spectrum IV antibiotics. 2. Acute oliguric renal failure. Patient was already being followed up by nephrology for non-oliguric renal failure, however at this point because of shock and multiorgan failure and oliguria with acidosis and hyperkalemia we will start the patient on CVVHDF. I would keep the patient even for a map of about 75 and keep him 0 fluid removal for a map of less than 75.Orders are written. Catheter is ready patient will be started as soon as he gets the right foot amputation. 3. Right foot gangrene. Patient is already on IV antibiotics. He has ischemic right foot with a large gangrene ulcer. He is going to undergo emergent right foot amputation by vascular surgery. 4. Hyperkalemia. Patient has severe hyperkalemia secondary to a combination of metabolic acidosis acute renal failure and shock. Dialysis is going to be started soon and hopefully it will help reverse his hyperkalemia. 5. Metabolic acidosis. Patient had acute respiratory and metabolic acidosis secondary to multiorgan failure, renal failure and respiratory failure. Vent management is being done by pulmonary service. He is already getting IV bicarbonate fluids. Once CVVHDF is started IV Bicarbonate can be stopped. 6. Acute blood loss anemia. Patient already got three units of packed red blood cell transfusion. Continue the CBC monitoring. Transfuse as needed for hemoglobin below 8. 7. Diabetes mellitus type 2. Patient is hyperglycemic with blood sugars in the 500's today morning. He was given IV insulin today morning if needed he can be started on Insulin drip. 8. Vent dependant respiratory failure. Patient's FiO2 requirement on the vent is 50%. Vent settings are being managed by the pulmonary team. Acidosis will be corrected with hemodialysis. The plan is care was discussed with the patient's sister, Barbara at the bedside. Patient overall has a very poor prognosis. Total critical care time spent in the management of this patient in the ICU today morning was 1 hour.
--- NOTE | 2018-10-15 09:17 | DS.PDOC ---
Discharge Summary General Date of Admission Sep 07, 2018 at 17:52 Date of Discharge September 24, 2018 Discharge Summary DNR/DNI/ COMFORT MEASURES ONLY CONSULTANTS: DR. RUSHING-DIRECTOR OF SUSTAINABILITY DR. CELIS-ID DR. COSTELLO-RENAL DR. GARLAND-VASCULAR SURGERY DR. GUERRERO-WOUND CARE DR. THAKKAR-INTERNAL COMMUNICATIONS WRITER PROCEDURES: INTUBATION 09/24/18 DR RUSHING ANGIOGRAM 09/23/18 DR GARLAND 09/16/18 RIGHT FOOT DRAINAGE AND DEBRIDEMENT DR. THAKKAR 09/24/18 RIGHT GUILLOTINE BKA 09/24/18 right triple lumen placed for IV access as well as a right femoral arterial line 09/24/18 emergency continuous veno-venous hemodialysis (CVVH), DISCHARGE DIAGNOSES: SEPTIC SHOCK DUE TO RIGHT FOOT GANGRENE HEMORRHAGIC SHOCK RIGHT FOOT GANGRENE MULTIORGAN FAILURE METABOLIC ACIDOSIS RESPIRATORY FAILURE DUE TO SEPTIC SHOCK, REQUIRING INTUBATION OLIGURIC RENAL FAILURE METABOLIC CIRRHOSIS HYPERKALEMIA PERITONEAL HEMATOMA MULTIORGAN FAILURE MORBID OBESITY BMI 43 UNTREATED CHELO ACUTE BLOOD LOSS ANEMIA DIABETES TYPE 2 DISCHARGE MEDS: NONE, PT COMFORT MEASURES ONLY HOSPITAL COURSE: Mr. Early is a 63-year-old male with a past medical history of morbid obesity, recent diagnosis of diabetes. Had not been following with the physician for more than 40 years. He initially presented in the end of August with a necrotic wound on his right foot that had been there for the past few days to weeks. He had an incision, drainage, and debridement and reportedly had an episode of hypotension during the procedure. Postoperatively, the patient was noted to have acute kidney injury (SHANITA) and was being followed by nephrology. He required a second debridement surgery on 09/17/18. He was noted to have worsening renal failure postoperatively; however, he was having urine output still. He was started on intravenous (IV) Zosyn initially and later transmitted transition to Augmentin. His wound cultures were positive for group B streptococcus and staphylococcus coagulase negative. Patient appeared to have continuous worsening of the ischemia necrosis in his right foot. Vascular was consulted, and it was determined that the patient had significant peripheral vascular disease which would impact wound healing if he were to have a transmetatarsal amputation. Therefore, patient underwent an angiogram on September 23 to see if there was any possibility of stenting and improving blood flow to his lower extremity in attempt to salvage his foot for transmetatarsal amputation. He was also on heparin given his peripheral vascular disease and evidence of worsening ischemia. Post procedure, overnight, patient was noted to be increasingly diaphoretic and lethargic as well as pale. He was also complaining of some increased abdominal distension. He had worsening hypotension. Was given normal saline fluid boluses, 2 liters, with minimal improvement. He did have a CT abdomen and pelvis done, which showed a large left retroperitoneal hematoma. The patient was transferred to the intensive care unit (ICU) for further management. The patient had also been noted to be bradycardiac and had periods of apnea as well. He did not lose a pulse during this, but he did require Ambu bag ventilation. His blood pressure dropped again after IVF boluses and he was started on Levophed. He was also transfused 3 units packed red blood cells (PRBC), however continued to require Levophed and additionally vasopressin for blood pressure support. The patient's arterial blood gas (ABG) showed a severe metabolic acidosis secondary to his worsening renal failure and a lactic acidosis with an inappropriate respiratory acidosis, as he was unable to compensate for his metabolic acidosis due to likely hx of CHELO. Therefore, given his hypotension, unresponsiveness and worsening acidosis, patient was intubated. He was given bicarbonate to prior to intubation. Post intubation, the patient was started on a bicarbonate drip as well. He was given broad- spectrum antibiotics prior to this with vancomycin and meropenem. The patient had a right triple lumen placed for IV access as well as a right femoral arterial line for blood pressure monitoring. The patient was also noted to have worsening hyperkalemia and persistent acidosis despite bicarbonate administration. He was seen by renal with a plan for emergency continuous veno-venous hemodialysis (CVVH), and he was also seen by vascular with the plan for emergent guillotine amputation of his right foot, as it had been noted on examination today to have even further reduced blood flow than previous. There was suspicion that given his leukocytosis and persistent shock despite blood product administration that he was having worsening septic shock from his gangrenous foot. 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 Shock. It is a combination of septic shock and hemorrhagic shock. Patient is currently intubated. He is on 2 pressors. He is in multiorgan failure. Critical care team is already on board. He has received broad spectrum IV antibiotics. Acute oliguric renal failure. Patient was already being followed up by nephrology for non-oliguric renal failure, however at this point because of shock and multiorgan failure and oliguria with acidosis and hyperkalemia we will start the patient on CVVHDF. I would keep the patient even for a map of about 75 and keep him 0 fluid removal for a map of less than 75.Orders are written. Catheter is ready patient will be started as soon as he gets the right foot amputation. Right foot gangrene. Patient is already on IV antibiotics. He has ischemic right foot with a large gangrene ulcer. He is going to undergo emergent right foot amputation by vascular surgery. Hyperkalemia. Patient has severe hyperkalemia secondary to a combination of metabolic acidosis acute renal failure and shock. Dialysis is going to be started soon and hopefully it will help reverse his hyperkalemia. Metabolic acidosis. Patient had acute respiratory and metabolic acidosis secondary to multiorgan failure, renal failure and respiratory failure. Vent management is being done by pulmonary service. He is already getting IV bicarbonate fluids. Once CVVHDF is started IV Bicarbonate can be stopped. Acute blood loss anemia. Patient already got three units of packed red blood cell transfusion. Continue the CBC monitoring. Transfuse as needed for hemoglobin below 8. Diabetes mellitus type 2. Patient is hyperglycemic with blood sugars in the 500's today morning. He was given IV insulin today morning if needed he can be started on Insulin drip. Vent dependant respiratory failure. Patient's FiO2 requirement on the vent is 50%. Vent settings are being managed by the pulmonary team. Acidosis will be corrected with hemodialysis. Foot XR Lateral soft tissue ulcer in the midfoot with no radiographic evidence of osteomyelitis. No acute fracture or dislocation. Electronically Signed by Jeffery Mcnally MD 09/08/2018 09:16 A Foot MRI Noncontrast study shows the lateral forefoot soft tissue irregularity and edema. No abscess or evidence of osteomyelitis seen. Electronically Signed by Greyson Anaya MD 09/09/2018 11:27 A PVD The pt is reviewed and examined by Dr Garland, vascular surgery. RLE arterial U/S 09/18/18 indicated monophasic distal MUSIC CATALOGUER/MATTY, mod-signif stenosis calf. Continue IV Heparin gtt. s/p angiogram today in setting of ARF - prototype engineer following- per note - will monitor renal function for now and if no improvement by the end of the week , he will consider HD Continue to monitor renal function.- daily bmp Right Diabetic Foot Infection/wound with sepsis-improved - not septic today S/P debridement as per Podiatry 09/10/18, 09/17/18. Dr Thakkar following. 09/17/18 ESR 107/CRP 4.50. CRP this AM 7.57 Blood culture x 2 negative MRI Foot with no evidence of osteomyelitis Cultures growing multiple organisms, Dr Celis ID following. S/P Zosyn IV x10 days, now on po Augmentin. Continue with wound care. Dr Celis recommending transmetatarsal amputation as wounds do not appear to be improving. SHANITA Non oliguric ARF, pt with urine output approx 2-2.8 L per day as per I/O. ACEI on hold. s/p angiogram todaqy - s/p 1L of ivf ns S/P IV lasix for fluid overload 09/20/18. Renal U/S with no obstruction SCr >5. Nephrology following. DM HgbA1c noted to be 11.0 09/07/18 Levemir/SSI. Morbid obesity with possible CHELO Nocturnal oximetry also suggests underlying CHELO Plan is for sleep study after discharge HTN. amlodipine/metoprolol. SOB. Sat 95% on 2 LNC. Afebrile. VSS. S/P IV Lasix 09/20/18 for fluid overload. Guaiac positive and hematuria while on heparin drip There is more benefit over risk of bleeding for this patient at this time , so will c/w heparin drip and monitor vitals q4h , cbc q12 monitor for gross GI or worsened hematuria - at this time, can consider holding heparin last vitals this afternoon are - HR 72, bp 153/69 DISCHARGE LABS, IMAGING STUDIES, MICROBIOLOGY: PLS SEE BELOW TIME SPENT ON DISCHARGE : 30 MIN Discharge Medications No Active Prescriptions or Reported Meds Allergies Coded Allergies: No Known Allergies (Unverified , 09/10/18) EDEN HADDAD MD October 15, 2018 08:57
--- NOTE | 2018-10-22 07:53 | REPIR ---
DATE OF PROCEDURE: 09/23/2018 ATTENDING SURGEON: Dr. Ursula Elizabeth RN NEONATAL: Marilu Ratliff PREOPERATIVE DIAGNOSES: 1. Sepsis. 2. Right foot ulcer. POSTOPERATIVE DIAGNOSES: 1. Sepsis. 2. Right foot ulcer. PROCEDURES: 1. Left common femoral arterial cannulation. 2. Selective right common femoral artery catheter placement with angiogram. 3. Selective right superficial femoral artery catheter placement with angiogram. 4. Selective right popliteal artery catheter placement with angiogram. 5. MYNX closure of the left common femoral arteriotomy. INDICATION: The patient is a 63-year-old male with sepsis and a nonhealing right foot ulcer who will undergo angiography with possible angioplasty, stent and/or atherectomy. The risks, benefits and alternative treatment options were discussed with the patient's . ANESTHESIA: Local with 10 mL of 2% lidocaine mixed with 0.5% Marcaine. FLUOR TIME: 1.9 minutes. CONTRAST: 2 mL. HEPARIN: None. COMPLICATIONS: None. DRAINS: None. IMPLANTS: Left femoral arteriotomy closure with a MYNX closure device. PROCEDURE: The patient was taken to the angiography suite, placed supine on the angiography room table and then prepped and draped in a standard surgical fashion. The left common femoral artery was cannulated and a catheter was placed up and over the bifurcation of the aorta and into the right common femoral artery and an angiogram was performed. Catheter was advanced into the right superficial femoral artery and an angiogram was performed. Catheter was advanced selectively into the right popliteal artery with angiography performed. No intervention was required. The catheters and wires were removed. The MYNX closure device was used to close the arteriotomy in the left common femoral artery with an additional 10 minutes of adjunctive pressure applied for hemostasis. Dressings were then applied. The patient tolerated the procedure well. All instrument, sponge, and needle counts were correct at the end the case. There were no complications. Dr. Elizabeth was present for and directed the entire case. The patient was transferred to the holding area and subsequently to the ICU in critical condition.
--- NOTE | 2018-10-22 08:53 | RO ---
DATE OF PROCEDURE: 09/24/2018 ATTENDING SURGEON: Dr. Ursula Elizabeth ELEMENTARY SUBSTITUTE TEACHER: Dr. Miranda Catalan PREOPERATIVE DIAGNOSIS: Sepsis, right foot gangrene. POSTOPERATIVE DIAGNOSIS: Sepsis, right foot gangrene. PROCEDURE: Right foot guillotine below-knee amputation. INDICATIONS: The patient is a 63-year-old male who presented initially with gangrene of the right foot and has subsequently developed sepsis, which is life-threatening, and the patient will undergo right guillotine amputation of his gangrenous foot. Risks, benefits, and alternative treatment options were discussed with the patient's sister. ANESTHESIA: Local monitored anesthesia care (MAC). ESTIMATED BLOOD LOSS: 20 mL. IV FLUIDS: 100 mL. HEPARIN: None. COMPLICATIONS: None. DRAINS: None. IMPLANTS: None. DESCRIPTION OF PROCEDURE: The patient remained in the intensive care unit (ICU) and was prepped and draped in a standard surgical fashion. Circumferential incision was made just above the knot medial and lateral malleolus with a scalpel. The bone saw was then used to transect through the tibia and fibula. The specimen was then removed. There was minimal bleeding noted. The wound was then packed with wet-to-dry dressing. All instrument, sponge and needle counts were correct at the end of case. There were no complications. Dr. Elizabeth was present for directed the entire case. The patient remained in the ICU in critical condition.
--- NOTE | 2018-10-22 14:33 | REPIR ---
DATE OF PROCEDURE: 09/24/2018 PREOPERATIVE DIAGNOSES: Acute renal failure, sepsis, retroperitoneal hematoma. POSTOPERATIVE DIAGNOSES: Acute renal failure, sepsis, retroperitoneal hematoma PROCEDURE: Ultrasound-guided left internal jugular vein cannulation, fluoroscopic guided left internal jugular vein 20 cm non-tunneled hemodialysis catheter. SURGEON: Dr. Ursula Elizabeth. ARBITRATOR: Marilu Godwin and Nat Long. ANESTHESIA: Local with 10 mL of 2% lidocaine mixed with 0.5% Marcaine. COMPLICATIONS: None. DRAINS: None. SPECIMENS: None. IMPLANT: None. INDICATION: The patient is a 63-year-old male with sepsis who requires access for renal replacement therapy due to acute renal failure. The patient will undergo placement of a temporary hemodialysis catheter. The risks, benefits, alternative options were discussed with the patient's sister. DESCRIPTION OF PROCEDURE: The patient was taken to the angiography suite, placed supine on the angiography table and then prepped and draped in a standard surgical fashion. Ultrasound was used guide cannulation of the left internal jugular vein, which was then dilated under fluoroscopic guidance and a 20 cm temporary hemodialysis catheter was placed in the tip of the superior vena cava right atrial junction. Catheter was secured using #2-0 Prolene suture. Dressings were then applied. All instrument, sponge and needle counts were correct at the end of case. There were no complications. Dr. Elizabeth was present for and directed the entire case. The patient was transferred to the intensive care unit (ICU) in stable condition.
== END 2018-09-24 17:55 | disposition expired | DRG 710 ==
LOC: M ED 13:26 → M ED INP 17:52 → M PCU 22:25 → M MS5PR 09-12 19:11 → M PCU 09-24 01:51 → M ICU 09-24 04:32
PROVIDERS: ADMIT Internal Medicine; ATTEND General Practice
PROC: 0JBQ0ZZ Excision of Right Foot Subcutaneous Tissue and Fascia, Open Approach (ICD-10-PCS; 2018-09-09)
PROC: 0JBQ0ZZ Excision of Right Foot Subcutaneous Tissue and Fascia, Open Approach (ICD-10-PCS; 2018-09-16)
PROC: 02HV33Z Insertion of Infusion Device into Superior Vena Cava, Percutaneous Approach (ICD-10-PCS; 2018-09-18)
PROC: 5A1935Z Respiratory Ventilation, Less than 24 Consecutive Hours (ICD-10-PCS; 2018-09-24)
PROC: 0Y6H0Z3 Detachment at Right Lower Leg, Low, Open Approach (ICD-10-PCS; 2018-09-24)
PROC: 30233N1 Transfusion of Nonautologous Red Blood Cells into Peripheral Vein, Percutaneous Approach (ICD-10-PCS; 2018-09-24)
PROC: 0QDN0ZZ Extraction of Right Metatarsal, Open Approach (ICD-10-PCS; principal; 2018-09-24 09:16)
DX: A41.9 Sepsis, unspecified organism (principal); R65.21 Severe sepsis with septic shock; N17.0 Acute kidney failure with tubular necrosis; I70.269 Atherosclerosis of native arteries of extremities with gangrene, unspecified extremity; E87.2 Acidosis; E11.621 Type 2 diabetes mellitus with foot ulcer; L03.115 Cellulitis of right lower limb; E66.01 Morbid (severe) obesity due to excess calories; Z68.41 Body mass index [BMI] 40.0-44.9, adult; E87.70 Fluid overload, unspecified; E87.1 Hypo-osmolality and hyponatremia; E87.5 Hyperkalemia; E11.65 Type 2 diabetes mellitus with hyperglycemia; I10 Essential (primary) hypertension; G47.33 Obstructive sleep apnea (adult) (pediatric); Z66 Do not resuscitate; T81.19XA Other postprocedural shock, initial encounter